=== PATIENT | male | born 1950 | race Caucasian/White ===

== ENCOUNTER → 2017-01-09 | Outpatient (CLI) | payer MEDICARE ==
[2017-01-09 10:14] LABS: CHLORIDE,CL 104 mmol/L (98-110); SODIUM,NA 138 mmol/L (136-146)
== END ==
LOC: MW.CHRC 09:34
PROVIDERS: ATTEND Family Medicine
DX: I10 Essential (primary) hypertension (principal); E78.00 Pure hypercholesterolemia, unspecified; E03.9 Hypothyroidism, unspecified; M06.9 Rheumatoid arthritis, unspecified; R73.01 Impaired fasting glucose
CPT/HCPCS: 36415; 80053; 80061; 83036; 84439; 84443; 84481; 85025; 85652; 99215

== ENCOUNTER 2019-05-09 08:46 | Day surgery (SDC) | payer MEDICARE ==
[~2019-05-09 08:46] MED LIST: Lactated Ringers 1,000 ML IV SCH; Lidocaine 2% 5 ML SDV ONE; Propofol 200 MG/20 ML SDV ONE; Sodium Chloride 0.9% 10 ML SDV IV PRN; Sodium Chloride 0.9% 10 ML Syringe FLUSH PRN; Sodium Chloride 0.9% 2.5 ML Syringe FLUSH PRN; fentaNYL 100 MCG/2 ML SDV ONE
--- NOTE | 2019-05-09 09:56 | PCM.PREANE ---
Preanesthetic Assessment - Anesthesia/Transfusion/Family Hx Anesthesia History: Prior Anesthesia Without Reaction Family History of Anesthesia Reaction: No Transfusion History: No Prior Transfusion(s) - Review of Systems General: No Symptoms Pulmonary: No Symptoms Cardiovascular: No Symptoms Gastrointestinal: No Symptoms Neurological: No Symptoms - Physical Assessment Height: 5 ft 8 in Weight: 114.759 kg ASA Class: 3 Mental Status: Alert & Oriented x3 Airway Class: Mallampati = 2 Dentition: Reports: Normal Dentition ROM/Head Extension: Full Lungs: Clear to Auscultation, Normal Respiratory Effort Cardiovascular: Regular Rate, Regular Rhythm - Allergies Allergies/Adverse Reactions: Allergies Allergy/AdvReac Type Severity Reaction Status Date / Time No Known Allergies Allergy Verified 05/06/19 12:33 - Anesthesia Plan Pre-Op Medication Ordered: None - Acknowledgements Anesthesia Type Planned: General Anesthesia Pt an Appropriate Candidate for the Planned Anesthesia: Yes Alternatives and Risks of Anesthesia Discussed w Pt/Guardian: Yes Pt/Guardian Understands and Agrees with Anesthesia Plan: Yes Additional Comments: PMH: afib (prob paroxysmal, appears to be in sinus now, unless pseudonormalization, takes asa), htn, gerd, hld, thyroid replacement, RA- multiple joints- on MTX PLAN: tiva PreAnesthesia Questionnaire HEENT History: Reports: Other (See Below) Other HEENT History: reading glasses Cardiovascular History: Reports: Afib, High Cholesterol, Hypertension Respiratory History: Reports: None Gastrointestinal History: Reports: Other (See Below) Other Gastrointestinal History: occasional heartburn Genitourinary History: Reports: Prostate Disorder Other Genitourinary History: prostate cancer Musculoskeletal History: Reports: RA Neurological History: Reports: None Psychiatric History: Reports: None Endocrine/Metabolic History: Reports: Hypothyroidism, Obesity/BMI 30+ Hematologic History: Reports: None Immunologic History: Reports: None Oncologic (Cancer) History: Reports: Prostate Dermatologic History: Reports: None - Past Surgical History Head Surgeries/Procedures: Reports: None HEENT Surgical History: Reports: None Cardiovascular Surgical History: Reports: None Respiratory Surgical History: Reports: None GI Surgical History: Reports: Colonoscopy Endocrine Surgical History: Reports: None Neurological Surgical History: Reports: None Musculoskeletal Surgical History: Reports: Other (See Below) Other Musculoskeletal Surgeries/Procedures:: flexor tendon repair Oncologic Surgical History: Reports: None Dermatological Surgical History: Reports: Other (See Below) - SUBSTANCE USE Smoking Status *Q: Former Smoker Tobacco Use Within Last Twelve Months: No Days Per Week of Alcohol Use: 6 Number of Drinks Per Day: 2 Total Drinks Per Week: 12 Recreational Drug Use History: No - HOME MEDS Home Medications: Home Meds Aspirin 325 mg PO DAILY 05/06/19 [History] Calcium Carb/Magnesium Hydrox [Antacid Chewable Tablet] 1 tab.chew CHEW ASDIRECTED PRN 05/06/19 [History] Folic Acid 1 mg PO DAILY 05/06/19 [History] Gluc HCl/Csa/Ngoc Hy/Hyalur Ac [Glucosamine Chondroitin] 2 tab PO DAILY [History] Levothyroxine Sodium [Synthroid] 200 mcg PO DAILY 05/06/19 [History] Lisinopril 10 mg PO DAILY 05/06/19 [History] Methotrexate Sodium [Methotrexate] 8 tab PO WEEKLY 05/06/19 [History] Multivit-Min/FA/Lycopen/Lutein [Centrum Silver Men Tablet] 1 tab PO DAILY [History] Rosuvastatin Calcium 20 mg PO DAILY 05/06/19 [History] dilTIAZem HCl [Diltiazem 24Hr ER (Xr)] 240 mg PO DAILY 05/06/19 [History] - CURRENT (IN HOUSE) MEDS Current Meds: Current Medications Lactated Ringer's (Ringers, Lactated) 1,000 mls @ 125 mls/hr IV ASDIRECTED RAHEEL Last Admin: 05/09/19 09:35 Dose: 125 mls/hr Sodium Chloride (Saline Flush) 10 ml FLUSH ASDIRECTED PRN PRN Reason: Keep Vein Open Sodium Chloride (Saline Flush) 2.5 ml FLUSH ASDIRECTED PRN PRN Reason: Keep Vein Open Sodium Chloride (Saline Flush) 10 ml FLUSH ASDIRECTED PRN PRN Reason: Keep Vein Open Sodium Chloride (Saline Flush) 2.5 ml FLUSH ASDIRECTED PRN PRN Reason: Keep Vein Open Sodium Chloride (Normal Saline) 10 ml IV ASDIRECTED PRN PRN Reason: IV Use Discontinued Medications Fentanyl (Sublimaze) Confirm Administered Dose 100 mcg .ROUTE .STK-MED ONE Stop: 05/09/19 07:14 Lidocaine (Xylocaine-Mpf 2%) Confirm Administered Dose 5 ml .ROUTE .STK-MED ONE Stop: 05/09/19 07:14 Propofol (Diprivan 20 Ml) Confirm Administered Dose 400 mg .ROUTE .[facility] ONE Stop: 05/09/19 07:14
[2019-05-09] MEDS ORDERED: ePHEDrine 50 MG/ML SDV ONE (10:28)
[2019-05-09] MEDS ORDERED: Propofol 200 MG/20 ML SDV ONE (10:36)
--- NOTE | 2019-05-09 12:07 | PCM.POSTAN ---
POST ANESTHESIA ASSESSMENT - MENTAL STATUS Mental Status: Alert, Oriented - VITAL SIGNS Vital Signs: Last Vital Signs Temp 97.2 F 05/09/19 10:49 Pulse 85 05/09/19 11:04 Resp 26 H 05/09/19 11:04 BP 111/65 05/09/19 11:04 Pulse Ox 96 05/09/19 11:04 - RESPIRATORY Respiratory Status: Respiratory Rate WNL, Airway Patent, O2 Saturation Stable - CARDIOVASCULAR CV Status: Pulse Rate WNL, Blood Pressure Stable - GASTROINTESTINAL GI Status: No Symptoms - POST OP HYDRATION Hydration Status: Adequate & Stable
--- NOTE | 2019-05-09 12:07 | PCM48HPAN ---
Post Anesthesia Note - EVALUATION WITHIN 48HRS OF ANESTHETIC Vital Signs in Normal Range: Yes Patient Participated in Evaluation: Yes Respiratory Function Stable: Yes Airway Patent: Yes Cardiovascular Function Stable: Yes Hydration Status Stable: Yes Pain Control Satisfactory: Yes Nausea and Vomiting Control Satisfactory: Yes Mental Status Recovered: Yes Vital Signs: Last Vital Signs Temp 97.2 F 05/09/19 10:49 Pulse 85 05/09/19 11:04 Resp 26 H 05/09/19 11:04 BP 111/65 05/09/19 11:04 Pulse Ox 96 05/09/19 11:04
--- NOTE | 2019-05-09 12:34 | PCM.OPNOTE ---
- General Post-Op/Procedure Note Date of Surgery/Procedure: 05/09/19 Operative Procedure(s): Screening colonoscopy with polypectomy Findings: 1 hepatic flexure, 4 transverse, 4 descending, 3 sigmoid colon polyps. Diverticulosis Pre Op Diagnosis: Family history of colon cancer Post-Op Diagnosis: 1 hepatic flexure, 4 transverse, 4 descending, 3 sigmoid colon polyps. Diverticulosis Anesthesia Technique: MAC Primary Surgeon: Maria Ines Chavez Condition: Good Free Text/Narrative:: Intake & Output 05/08/19 05/09/19 05/09/19 22:59 06:59 14:59 Intake Total 350 Balance 350
--- NOTE | 2019-05-09 18:49 | OR ---
SURGEON: MARIA INES CHAVEZ MD DATE OF PROCEDURE: 05/09/2019 PREOPERATIVE DIAGNOSIS: Screening colonoscopy. POSTOPERATIVE DIAGNOSES: 1. Diverticulosis. 2. Hepatic flexure polyp. 3. Transverse colon polyp. 4. Descending colon polyp. 5. Sigmoid colon polyp. PROCEDURE PERFORMED: Screening colonoscopy with polypectomy. PRIMARY SURGEON: Maria Ines Chavez MD. ANESTHESIA: MAC. INSTRUMENT USED: Olympus colonoscope. EXTENT OF EXAM: To the cecum. PREPARATION: Good. LIMITATIONS: None. INDICATION FOR EXAMINATION: The patient is a 68-year-old male who presents for a screening colonoscopy. His father was diagnosed with colon cancer. I explained the procedure, expected perioperative course, and risks including bleeding, infection, or damage to surrounding structures including perforation. The patient verbalized understanding and wishes to proceed. PROCEDURE IN DETAIL: The patient was brought into the endoscopy suite and placed in a left lateral decubitus position. A time-out was completed verifying the patient's name, age, date of , allergies, and procedure to be performed. Monitored anesthesia care was induced and continuous oxygen was provided via nasal cannula throughout the procedure. After adequate sedation was achieved, a digital rectal exam was performed. This exam was within normal limits. A well lubricated colonoscope was inserted into the rectum and advanced under direct visualization to the level of the cecum. The cecum was identified by both visual and anatomic landmarks. A photograph was taken of the cecal cap, however, I was unable to retroflex the scope within the cecum due to looping of the scope more proximally. The scope was then fully withdrawn while examining the color, texture, anatomy, and integrity of the mucosa from the cecum to the anal canal. At the hepatic flexure, the patient was found to have a larger sessile polyp. This was removed using a hot loop snare. It was sent to Pathology, labeled as hepatic flexure polyp. The patient had multiple polyps throughout the rest of the colon. There were 4 sessile polyps in the transverse colon, 4 in the descending colon, and 3 in the sigmoid colon. These were all removed in piecemeal fashion using a cold biopsy forceps and labeled as such. The scope was then brought into the rectum and retroflexed to allow visualization of the anal canal opening. This appeared normal and a photograph was taken. Scope was then straightened out and fully withdrawn. The cecum to anus time was 28 minutes. The patient tolerated the procedure well and was transferred to the PACU in stable condition. ENDOSCOPIC DIAGNOSES: 1. Diverticulosis. 2. Hepatic flexure polyp x1. 3. Transverse colon polyps x4. 4. Descending colon polyps x4. 5. Sigmoid colon polyps x3. RECOMMENDATIONS: Follow up in clinic in 2 weeks. DENISSE HOOKS /[id number]
== END 2019-05-09 11:53 | disposition home or self-care (01) ==
LOC: MW.SDS 08:46
PROVIDERS: ATTEND Surgery
DX: Z12.11 Encounter for screening for malignant neoplasm of colon (principal); D12.3 Benign neoplasm of transverse colon; D12.4 Benign neoplasm of descending colon; D12.5 Benign neoplasm of sigmoid colon; K63.5 Polyp of colon; K57.30 Diverticulosis of large intestine without perforation or abscess without bleeding; K21.9 Gastro-esophageal reflux disease without esophagitis; I10 Essential (primary) hypertension; I48.91 Unspecified atrial fibrillation; E78.00 Pure hypercholesterolemia, unspecified; E03.9 Hypothyroidism, unspecified; M19.90 Unspecified osteoarthritis, unspecified site; Z87.891 Personal history of nicotine dependence; Z80.0 Family history of malignant neoplasm of digestive organs; Z79.82 Long term (current) use of aspirin; Z79.899 Other long term (current) drug therapy
CPT/HCPCS: 45380; 45385; J2001; J2704; J3010; J7120; 88305

== ENCOUNTER 2019-05-18 00:49 | Observation (INO) | payer MEDICARE ==
--- NOTE | 2019-05-18 01:14 | EDM.PDOC ---
ED HPI GENERAL MEDICAL PROBLEM - General Chief Complaint: Gastrointestinal Problem Stated Complaint: BLOOD IN STOOL Time Seen by Provider: 05/18/19 01:03 - History of Present Illness INITIAL COMMENTS - FREE TEXT/NARRATIVE: HISTORY AND PHYSICAL: History of present illness: Patient 60-year-old male history of prostate cancer is one week status post colonoscopy in which he had 12 polyps removed he is also reporting a history diverticulosis he states he is doing fine until tonight when he had 3 episodes of blood per rectum with bowel movements. He denies chest pain charge breath or other concern he has no bleeding diathesis Review of systems: As per history of present illness and below otherwise all systems reviewed and negative. Past medical history: As per history of present illness and as reviewed below otherwise noncontributory. Surgical history: As per history of present illness and as reviewed below otherwise noncontributory. Social history: No reported history of drug or alcohol abuse. Family history: As per history of present illness and as reviewed below otherwise noncontributory. Physical exam: HEENT: Atraumatic, normocephalic, pupils reactive, negative for conjunctival pallor or scleral icterus, mucous membranes moist, throat clear, neck supple, nontender, trachea midline. Lungs: Clear to auscultation, breath sounds equal bilaterally, chest nontender. Heart: S1S2, regular, negative for clicks, rubs, or JVD. Abdomen: Soft, nondistended, nontender. Negative for masses or hepatosplenomegaly. Negative for costovertebral tenderness. Pelvis: Stable nontender. Genitourinary: Deferred. Rectal: Deferred. Extremities: Atraumatic, negative for cords or calf pain. Neurovascular unremarkable. Neuro: Awake, alert, oriented. Cranial nerves II through XII unremarkable. Cerebellum unremarkable. Motor and sensory unremarkable throughout. Exam nonfocal. Diagnostics: CBC CMP PT/INR CT abdomen and pelvis Therapeutics: 125 mL an hour Impression: #1 rectal bleeding #21 week status post polypectomy #3 history diverticulosis # 4 history of prostate cancer Definitive disposition and diagnosis as appropriate pending reevaluation and review of above. - Related Data Allergies Allergy/AdvReac Type Severity Reaction Status Date / Time No Known Allergies Allergy Verified 05/18/19 00:58 Home Meds: Home Meds Aspirin 325 mg PO DAILY 05/06/19 [History] Folic Acid 1 mg PO DAILY 05/06/19 [History] Gluc HCl/Csa/Ngoc Hy/Hyalur Ac [Glucosamine Chondroitin] 2 tab PO DAILY [History] Levothyroxine Sodium [Synthroid] 200 mcg PO DAILY 05/06/19 [History] Lisinopril 10 mg PO DAILY 05/06/19 [History] Methotrexate Sodium [Methotrexate] 8 tab PO WEEKLY 05/06/19 [History] Multivit-Min/FA/Lycopen/Lutein [Centrum Silver Men Tablet] 1 tab PO DAILY [History] Rosuvastatin Calcium 20 mg PO BEDTIME 05/06/19 [History] dilTIAZem HCl [Diltiazem 24Hr ER (Xr)] 240 mg PO DAILY 05/06/19 [History] Past Medical History HEENT History: Reports: Other (See Below) Other HEENT History: reading glasses Cardiovascular History: Reports: Afib, High Cholesterol, Hypertension Respiratory History: Reports: None Gastrointestinal History: Reports: Other (See Below) Other Gastrointestinal History: occasional heartburn Genitourinary History: Reports: Prostate Disorder Other Genitourinary History: prostate cancer Musculoskeletal History: Reports: RA Neurological History: Reports: None Psychiatric History: Reports: None Endocrine/Metabolic History: Reports: Hypothyroidism Hematologic History: Reports: None Immunologic History: Reports: None Oncologic (Cancer) History: Reports: Prostate Dermatologic History: Reports: None - Past Surgical History Head Surgeries/Procedures: Reports: None HEENT Surgical History: Reports: None Cardiovascular Surgical History: Reports: None Respiratory Surgical History: Reports: None GI Surgical History: Reports: Colonoscopy Endocrine Surgical History: Reports: None Neurological Surgical History: Reports: None Musculoskeletal Surgical History: Reports: Other (See Below) Other Musculoskeletal Surgeries/Procedures:: flexor tendon repair Oncologic Surgical History: Reports: None Dermatological Surgical History: Reports: Other (See Below) Social & Family History - Family History Family Medical History: Noncontributory - Tobacco Use Smoking Status *Q: Current Every Day Smoker Years of Tobacco use: 50 Packs/Tins Daily: 1 - Recreational Drug Use Recreational Drug Use: No ED ROS GENERAL - Review of Systems Review Of Systems: ROS reveals no pertinent complaints other than HPI. ED EXAM, GENERAL - Physical Exam Exam: See Below (See dictation) Course - Vital Signs Last Recorded V/S: Last Vital Signs Temp 35.5 C 09/28/19 00:49 Pulse 97 05/18/19 00:49 Resp 18 05/18/19 00:49 BP 162/87 H 05/18/19 00:49 Pulse Ox 95 05/18/19 00:49 - Orders/Labs/Meds Orders: Active Orders 24 hr Category Date Time Status Admission Status [Patient Status] [ADT] Stat ADT 05/18/19 02:25 Active Sodium Chloride 0.9% [Normal Saline] 1,000 ml Med 05/18/19 01:15 Active IV STAT Medication Orders Sodium Chloride (Normal Saline) 1,000 mls @ 125 mls/hr IV STAT RAHEEL Last Admin: 05/18/19 01:56 Dose: 125 mls/hr Labs: Laboratory Tests 05/18/19 05/18/19 05/18/19 Range/Units 01:45 01:45 01:45 WBC 7.85 (4.0-11.0) K/uL RBC 3.64 L (4.50-5.90) M/uL Hgb 11.8 L (13.0-17.0) g/dL Hct 35.6 L (38.0-50.0) % MCV 97.8 (80.0-98.0) fL MCH 32.4 H (27.0-32.0) pg MCHC 33.1 (31.0-37.0) g/dL RDW Std Deviation 50.4 (28.0-62.0) fl RDW Coeff of Bob 14 (11.0-15.0) % Plt Count 261 (150-400) K/uL MPV 9.40 (7.40-12.00) fL Neut % (Auto) 63.3 (48.0-80.0) % Lymph % (Auto) 17.2 (16.0-40.0) % [place] % (Auto) 14.9 (0.0-15.0) % Eos % (Auto) 4.3 (0.0-7.0) % Baso % (Auto) 0.3 (0.0-1.5) % Neut # (Auto) 5.0 (1.4-5.7) K/uL Lymph # (Auto) 1.4 (0.6-2.4) K/uL [place] # (Auto) 1.2 H (0.0-0.8) K/uL Eos # (Auto) 0.3 (0.0-0.7) K/uL Baso # (Auto) 0.0 (0.0-0.1) K/uL Nucleated RBC % 0.0 /100WBC Nucleated RBCs # 0 K/uL INR 0.95 Sodium (136-148) mmol/L Potassium (3.5-5.1) mmol/L Chloride (98-107) mmol/L Carbon Dioxide (21.0-32.0) mmol/L BUN (7.0-18.0) mg/dL Creatinine (0.8-1.3) mg/dL Est Cr Clr Drug Dosing Estimated GFR (MDRD) ml/min Glucose (74-106) mg/dL Calcium (8.5-10.1) mg/dL Total Bilirubin (0.2-1.0) mg/dL AST (15-37) IU/L ALT (14-63) IU/L Alkaline Phosphatase (46-116) U/L Total Protein (6.4-8.2) g/dL Albumin (3.4-5.0) g/dL Globulin (2.6-4.0) g/dL Albumin/Globulin Ratio (0.9-1.6) Urine Color YELLOW Urine Appearance CLEAR Urine pH 5.5 (5.0-8.0) Ur Specific Otis >= 1.030 (1.001-1.035) Urine Protein NEGATIVE (NEGATIVE) mg/dL Urine Glucose (UA) NEGATIVE (NEGATIVE) mg/dL Urine Ketones NEGATIVE (NEGATIVE) mg/dL Urine Occult Blood NEGATIVE (NEGATIVE) Urine Nitrite NEGATIVE (NEGATIVE) Urine Bilirubin NEGATIVE (NEGATIVE) Urine Urobilinogen 0.2 (<2.0) EU/dL Ur Leukocyte Esterase NEGATIVE (NEGATIVE) 05/18/19 Range/Units 01:45 WBC (4.0-11.0) K/uL RBC (4.50-5.90) M/uL Hgb (13.0-17.0) g/dL Hct (38.0-50.0) % MCV (80.0-98.0) fL MCH (27.0-32.0) pg MCHC (31.0-37.0) g/dL RDW Std Deviation (28.0-62.0) fl RDW Coeff of Bob (11.0-15.0) % Plt Count (150-400) K/uL MPV (7.40-12.00) fL Neut % (Auto) (48.0-80.0) % Lymph % (Auto) (16.0-40.0) % [place] % (Auto) (0.0-15.0) % Eos % (Auto) (0.0-7.0) % Baso % (Auto) (0.0-1.5) % Neut # (Auto) (1.4-5.7) K/uL Lymph # (Auto) (0.6-2.4) K/uL [place] # (Auto) (0.0-0.8) K/uL Eos # (Auto) (0.0-0.7) K/uL Baso # (Auto) (0.0-0.1) K/uL Nucleated RBC % /100WBC Nucleated RBCs # K/uL INR Sodium 144 (136-148) mmol/L Potassium 3.8 (3.5-5.1) mmol/L Chloride 107 (98-107) mmol/L Carbon Dioxide 24.5 (21.0-32.0) mmol/L BUN 23 H (7.0-18.0) mg/dL Creatinine 1.0 (0.8-1.3) mg/dL Est Cr Clr Drug Dosing TNP Estimated GFR (MDRD) > 60.0 ml/min Glucose 176 H (74-106) mg/dL Calcium 7.9 L (8.5-10.1) mg/dL Total Bilirubin 0.3 (0.2-1.0) mg/dL AST 19 (15-37) IU/L ALT 24 (14-63) IU/L Alkaline Phosphatase 73 (46-116) U/L Total Protein 5.9 L (6.4-8.2) g/dL Albumin 2.8 L (3.4-5.0) g/dL Globulin 3.1 (2.6-4.0) g/dL Albumin/Globulin Ratio 0.9 (0.9-1.6) Urine Color Urine Appearance Urine pH (5.0-8.0) Ur Specific [place] (1.001-1.035) Urine Protein (NEGATIVE) mg/dL Urine Glucose (UA) (NEGATIVE) mg/dL Urine Ketones (NEGATIVE) mg/dL Urine Occult Blood (NEGATIVE) Urine Nitrite (NEGATIVE) Urine Bilirubin (NEGATIVE) Urine Urobilinogen (<2.0) EU/dL Ur Leukocyte Esterase (NEGATIVE) Meds: Medications Generic Name Dose Route Start Last Admin Trade Name Freq PRN Reason Stop Dose Admin Sodium Chloride 1,000 mls @ 125 mls/hr 05/18/19 01:15 05/18/19 01:56 Normal Saline IV 125 mls/hr STAT RAHEEL Administration Departure - Departure Time of Disposition: : Disposition: Refer to Observation Condition: Good Clinical Impression: Rectal bleeding, History of prostate cancer - Discharge Information Referrals: Xiang Campos MD [Primary Care Provider] - Forms: ED Department Discharge - My Orders Last 24 Hours: My Active Orders 05/18/19 01:15 Sodium Chloride 0.9% [Normal Saline] 1,000 ml IV STAT 05/18/19 02:25 Admission Status [Patient Status] [ADT] Stat - Assessment/Plan Last 24 Hours: My Active Orders 05/18/19 01:15 Sodium Chloride 0.9% [Normal Saline] 1,000 ml IV STAT 05/18/19 02:25 Admission Status [Patient Status] [ADT] Stat
[2019-05-18] MEDS ORDERED: Sodium Chloride 0.9% 1,000 ML IV SCH (01:15)
--- NOTE | 2019-05-18 01:50 | CT ---
INDICATION: Blood in stool. Colonoscopy 1 week prior. TECHNIQUE: CT abdomen and pelvis without contrast. COMPARISON: None. FINDINGS: Lower chest: Unremarkable. Liver: Normal in size and attenuation. No masses. Gallbladder and bile ducts: No stones or inflammation. No biliary dilatation. Pancreas: Unremarkable. No mass or inflammation. Spleen: Normal in size. No masses. Adrenal glands: Left adrenal adenoma measuring 2.0 centimeters. Kidneys: No hydronephrosis with a 1 millimeter nonobstructing stone right kidney. Left renal cyst at the upper pole measuring 14 millimeters. GI tract: The stomach is unremarkable. No dilated loops of large or small intestine. Appendix is seen and is unremarkable. Moderate colonic diverticulosis without focal inflammation. Vasculature: Atherosclerosis without abdominal aortic aneurysm. Pelvis: Unremarkable. No pelvic masses. Bones: Unilateral spondylolysis on the left at L5. IMPRESSION: 1. Nephrolithiasis without evidence of hydronephrosis. 2. Colonic diverticulosis. 3. Left adrenal adenoma. Please note that all CT scans at this facility use dose modulation, iterative reconstruction, and/or weight-based dosing when appropriate to reduce radiation dose to as low as reasonably achievable. Dictated by Stanton Lujan MD @ May 18 2019 1:43AM Signed by Dr. Stanton Lujan @ May 18 2019 1:48AM
[2019-05-18 02:25] LABS: BLOOD UREA NITROGEN,BUN 23 mg/dL (7.0-18.0); CARBON DIOXIDE,CO2 24.5 mmol/L (21.0-32.0); CHLORIDE,CL 107 mmol/L (98-107); GLUCOSE RANDOM 176 mg/dL (74-106); POTASSIUM,K 3.8 mmol/L (3.5-5.1); SODIUM,NA 144 mmol/L (136-148)
[2019-05-18] MEDS: Sodium Chloride 0.9% 1,000 ML IV SCH ×2 (03:59→13:06)
--- NOTE | 2019-05-18 08:14 | PCM.HP.2 ---
H&P History of Present Illness - General Date of Service: 05/18/19 Admit Problem/Dx: Admission Diagnosis/Problem Admission Diagnosis/Problem bright red bleeding per rectum, recent polypectomy, prostate cancer pending chemotherapy Source of Information: Patient History Limitations: Reports: No Limitations - History of Present Illness Initial Comments - Free Text/Narative: The patient is a 60-year-old gentleman who presented to the emergency department yesterday evening with a complaint of bright red bleeding per rectum. The patient has a history of prostate cancer and is scheduled to undergo chemotherapy next week. 2 days ago the patient underwent colonoscopy with approximately 12 polyps being removed. The patient did have bloody bowel movement this morning. He has denied any pain. He should also denies any dizziness or lightheadedness. He has had no nausea or vomiting. The patient has been in his usual state of health up until the history of present illness. Onset of Symptoms: Reports: Gradual Duration of Symptoms: Reports: Day(s): Location: Reports: Abdomen Severity: Mild Improves with: Reports: None Worsens with: Reports: None Associated Symptoms: Reports: No Other Symptoms - Related Data Allergies/Adverse Reactions: Allergies Allergy/AdvReac Type Severity Reaction Status Date / Time No Known Allergies Allergy Verified 05/18/19 03:19 Home Medications: Home Meds Aspirin 325 mg PO DAILY 05/06/19 [History] Folic Acid 1 mg PO DAILY 05/06/19 [History] Gluc HCl/Csa/Ngoc Hy/Hyalur Ac [Glucosamine Chondroitin] 2 tab PO DAILY [History] Levothyroxine Sodium [Synthroid] 200 mcg PO DAILY 05/06/19 [History] Lisinopril 10 mg PO DAILY 05/06/19 [History] Methotrexate Sodium [Methotrexate] 8 tab PO WEEKLY 05/06/19 [History] Multivit-Min/FA/Lycopen/Lutein [Centrum Silver Men Tablet] 1 tab PO DAILY [History] Rosuvastatin Calcium 20 mg PO BEDTIME 05/06/19 [History] dilTIAZem HCl [Diltiazem 24Hr ER (Xr)] 240 mg PO DAILY 05/06/19 [History] Past Medical History HEENT History: Reports: Impaired Vision, Other (See Below) Other HEENT History: reading glasses Cardiovascular History: Reports: Afib, High Cholesterol, Hypertension Respiratory History: Reports: None Gastrointestinal History: Reports: Colon Polyp, Other (See Below) Other Gastrointestinal History: occasional heartburn Genitourinary History: Reports: Prostate Disorder Other Genitourinary History: prostate cancer Musculoskeletal History: Reports: RA Neurological History: Reports: None Psychiatric History: Reports: None Endocrine/Metabolic History: Reports: Hypothyroidism Hematologic History: Reports: None Immunologic History: Reports: None Oncologic (Cancer) History: Reports: Prostate Dermatologic History: Reports: None - Infectious Disease History Infectious Disease History: Reports: Chicken Pox, Measles - Past Surgical History Head Surgeries/Procedures: Reports: None HEENT Surgical History: Reports: None Cardiovascular Surgical History: Reports: None Respiratory Surgical History: Reports: None GI Surgical History: Reports: Colonoscopy, Polypectomy Endocrine Surgical History: Reports: None Neurological Surgical History: Reports: None Musculoskeletal Surgical History: Reports: Other (See Below) Other Musculoskeletal Surgeries/Procedures:: flexor tendon repair Oncologic Surgical History: Reports: None Dermatological Surgical History: Reports: Other (See Below) Social & Family History - Family History Family Medical History: Noncontributory Oncologic: Reports: Colon, Lung, Prostate - Tobacco Use Smoking Status *Q: Former Smoker Years of Tobacco use: 50 Packs/Tins Daily: 1 Used Tobacco, but Quit: No Month/Year Tobacco Last Used: 2012 - Caffeine Use Caffeine Use: Reports: Coffee - Alcohol Use Days Per Week of Alcohol Use: 7 Number of Drinks Per Day: 2 Total Drinks Per Week: 14 - Recreational Drug Use Recreational Drug Use: No - Living Situation & Occupation Living situation: Reports: , with Spouse Occupation: Retired H&P Review of Systems - Review of Systems: Review Of Systems: See Below General: Reports: No Symptoms HEENT: Reports: No Symptoms Pulmonary: Reports: No Symptoms Cardiovascular: Reports: No Symptoms Gastrointestinal: Reports: Difficulty Swallowing, Hematochezia. Denies: Abdominal Pain, Black Stool, Nausea Genitourinary: Reports: Other (Active prostate cancer) Musculoskeletal: Reports: No Symptoms Skin: Reports: No Symptoms Psychiatric: Reports: No Symptoms Neurological: Reports: No Symptoms Hematologic/Lymphatic: Reports: No Symptoms Immunologic: Reports: No Symptoms Exam - Exam Exam: See Below - Vital Signs Vital Signs: Last Vital Signs Temp 36.5 C 05/18/19 07:00 Pulse 87 05/18/19 07:00 Resp 16 05/18/19 07:00 BP 147/83 H 05/18/19 07:00 Pulse Ox 92 L 05/18/19 07:00 Weight: 114.577 kg - Exam Quality Assessment: No: Supplemental Oxygen General: Alert, Oriented, Cooperative HEENT: Conjunctiva Clear, EACs Clear, EOMI, Mucosa Moist & [place], Nares Patent, Pupils Equal, PERRLA Neck: Supple, Trachea Midline Lungs: Clear to Auscultation, Normal Respiratory Effort Cardiovascular: Regular Rate, Regular Rhythm GI/Abdominal Exam: Normal Bowel Sounds, Soft, Non-Tender, No Distention Back Exam: Normal Inspection, Full Range of Motion Extremities: Normal Inspection, Normal Range of Motion, No Pedal Edema Skin: Warm, Dry, Intact, Other (Seborrheic keratosis) Neurological: Cranial Nerves Intact Neuro Extensive - Mental Status: Alert, Oriented x3 Psychiatric: Alert, Normal Affect, Normal Mood - Patient Data Lab Results Last 24 hrs: Laboratory Results - last 24 hr 05/18/19 05/18/19 05/18/19 Range/Units 01:45 01:45 01:45 WBC 7.85 (4.0-11.0) K/uL RBC 3.64 L (4.50-5.90) M/uL Hgb 11.8 L (13.0-17.0) g/dL Hct 35.6 L (38.0-50.0) % MCV 97.8 (80.0-98.0) fL MCH 32.4 H (27.0-32.0) pg MCHC 33.1 (31.0-37.0) g/dL RDW Std Deviation 50.4 (28.0-62.0) fl RDW Coeff of Bob 14 (11.0-15.0) % Plt Count 261 (150-400) K/uL MPV 9.40 (7.40-12.00) fL Neut % (Auto) 63.3 (48.0-80.0) % Lymph % (Auto) 17.2 (16.0-40.0) % Garvin % (Auto) 14.9 (0.0-15.0) % Eos % (Auto) 4.3 (0.0-7.0) % Baso % (Auto) 0.3 (0.0-1.5) % Neut # (Auto) 5.0 (1.4-5.7) K/uL Lymph # (Auto) 1.4 (0.6-2.4) K/uL Garvin # (Auto) 1.2 H (0.0-0.8) K/uL Eos # (Auto) 0.3 (0.0-0.7) K/uL Baso # (Auto) 0.0 (0.0-0.1) K/uL Add Manual Diff Neutrophils % (Manual) (48.0-80.0) % Band Neutrophils % % Lymphocytes % (Manual) (16.0-40.0) % Monocytes % (Manual) (0.0-15.0) % Eosinophils % (Manual) (0.0-7.0) % Nucleated RBC % 0.0 /100WBC Absolute Seg Neuts (1.4-5.7) Band Neutrophils # Lymphocytes # (Manual) (0.6-2.4) Monocytes # (Manual) (0.0-0.8) Eosinophils # (Manual) (0.0-0.7) Nucleated RBCs # 0 K/uL INR 0.95 Sodium (136-148) mmol/L Potassium (3.5-5.1) mmol/L Chloride (98-107) mmol/L Carbon Dioxide (21.0-32.0) mmol/L BUN (7.0-18.0) mg/dL Creatinine (0.8-1.3) mg/dL Est Cr Clr Drug Dosing Estimated GFR (MDRD) ml/min Glucose (74-106) mg/dL Calcium (8.5-10.1) mg/dL Total Bilirubin (0.2-1.0) mg/dL AST (15-37) IU/L ALT (14-63) IU/L Alkaline Phosphatase (46-116) U/L Total Protein (6.4-8.2) g/dL Albumin (3.4-5.0) g/dL Globulin (2.6-4.0) g/dL Albumin/Globulin Ratio (0.9-1.6) Urine Color YELLOW Urine Appearance CLEAR Urine pH 5.5 (5.0-8.0) Ur Specific [place] >= 1.030 (1.001-1.035) Urine Protein NEGATIVE (NEGATIVE) mg/dL Urine Glucose (UA) NEGATIVE (NEGATIVE) mg/dL Urine Ketones NEGATIVE (NEGATIVE) mg/dL Urine Occult Blood NEGATIVE (NEGATIVE) Urine Nitrite NEGATIVE (NEGATIVE) Urine Bilirubin NEGATIVE (NEGATIVE) Urine Urobilinogen 0.2 (<2.0) EU/dL Ur Leukocyte Esterase NEGATIVE (NEGATIVE) 05/18/19 05/18/19 Range/Units 01:45 06:05 WBC 8.13 (4.0-11.0) K/uL RBC 3.23 L (4.50-5.90) M/uL Hgb 10.4 L (13.0-17.0) g/dL Hct 31.6 L (38.0-50.0) % MCV 97.8 (80.0-98.0) fL MCH 32.2 H (27.0-32.0) pg MCHC 32.9 (31.0-37.0) g/dL RDW Std Deviation 51.1 (28.0-62.0) fl RDW Coeff of Bob 14 (11.0-15.0) % Plt Count 247 (150-400) K/uL MPV 9.50 (7.40-12.00) fL Neut % (Auto) (48.0-80.0) % Lymph % (Auto) (16.0-40.0) % Garvin % (Auto) (0.0-15.0) % Eos % (Auto) (0.0-7.0) % Baso % (Auto) (0.0-1.5) % Neut # (Auto) (1.4-5.7) K/uL Lymph # (Auto) (0.6-2.4) K/uL Garvin # (Auto) (0.0-0.8) K/uL Eos # (Auto) (0.0-0.7) K/uL Baso # (Auto) (0.0-0.1) K/uL Add Manual Diff YES Neutrophils % (Manual) 66 (48.0-80.0) % Band Neutrophils % 6 % Lymphocytes % (Manual) 16 (16.0-40.0) % Monocytes % (Manual) 8 (0.0-15.0) % Eosinophils % (Manual) 4 (0.0-7.0) % Nucleated RBC % 0.0 /100WBC Absolute Seg Neuts 5.4 (1.4-5.7) Band Neutrophils # 0.5 Lymphocytes # (Manual) 1.3 (0.6-2.4) Monocytes # (Manual) 0.7 (0.0-0.8) Eosinophils # (Manual) 0.3 (0.0-0.7) Nucleated RBCs # 0 K/uL INR Sodium 144 (136-148) mmol/L Potassium 3.8 (3.5-5.1) mmol/L Chloride 107 (98-107) mmol/L Carbon Dioxide 24.5 (21.0-32.0) mmol/L BUN 23 H (7.0-18.0) mg/dL Creatinine 1.0 (0.8-1.3) mg/dL Est Cr Clr Drug Dosing TNP Estimated GFR (MDRD) > 60.0 ml/min Glucose 176 H (74-106) mg/dL Calcium 7.9 L (8.5-10.1) mg/dL Total Bilirubin 0.3 (0.2-1.0) mg/dL AST 19 (15-37) IU/L ALT 24 (14-63) IU/L Alkaline Phosphatase 73 (46-116) U/L Total Protein 5.9 L (6.4-8.2) g/dL Albumin 2.8 L (3.4-5.0) g/dL Globulin 3.1 (2.6-4.0) g/dL Albumin/Globulin Ratio 0.9 (0.9-1.6) Urine Color Urine Appearance Urine pH (5.0-8.0) Ur Specific [place] (1.001-1.035) Urine Protein (NEGATIVE) mg/dL Urine Glucose (UA) (NEGATIVE) mg/dL Urine Ketones (NEGATIVE) mg/dL Urine Occult Blood (NEGATIVE) Urine Nitrite (NEGATIVE) Urine Bilirubin (NEGATIVE) Urine Urobilinogen (<2.0) EU/dL Ur Leukocyte Esterase (NEGATIVE) Result Diagrams: 05/18/19 06:05 05/18/19 01:45 - Problem List (1) Rectal bleeding SNOMED Code(s): 33890409 ICD Code: K62.5 - HEMORRHAGE OF ANUS AND RECTUM Status: Acute Priority: High Current Visit: Yes Problem Details: Low-volume bleed (2) History of prostate cancer SNOMED Code(s): 233124563 ICD Code: Z85.46 - PERSONAL HISTORY OF MALIGNANT NEOPLASM OF PROSTATE Status: Chronic Priority: Medium Current Visit: Yes (3) Polyp, sigmoid colon SNOMED Code(s): 860139344 ICD Code: D12.5 - BENIGN NEOPLASM OF SIGMOID COLON Status: Chronic Priority: Medium Current Visit: Yes Qualifiers: Colon polyp type: unspecified Qualified Code(s): D12.5 - Benign neoplasm of sigmoid colon (4) Hypertension SNOMED Code(s): 19562896 ICD Code: I10 - ESSENTIAL (PRIMARY) HYPERTENSION Status: Chronic Priority : High Current Visit: Yes Qualifiers: Hypertension type: essential hypertension Qualified Code(s): I10 - Essential (primary) hypertension Problem List Initiated/Reviewed/Updated: Yes Orders Last 24hrs: Active Orders 24 hr Category Date Time Status Admission Status [Patient Status] [ADT] Stat ADT 05/18/19 02:25 Active Patient Status [ADT] Stat ADT 05/18/19 02:29 Active Clear Liquid Diet [DIET] Diet 05/18/19 Breakfast Active Sodium Chloride 0.9% [Normal Saline] 1,000 ml Med 05/18/19 03:45 Active IV ASDIRECTED Sodium Chloride 0.9% [Normal Saline] 1,000 ml Med 05/18/19 01:15 Active IV STAT Medication Orders Sodium Chloride (Normal Saline) 1,000 mls @ 125 mls/hr IV STAT [facility] Last Admin: 05/18/19 01:56 Dose: 125 mls/hr Sodium Chloride (Normal Saline) 1,000 mls @ 75 mls/hr IV ASDIRECTED [facility] Last Admin: 05/18/19 03:59 Dose: 75 mls/hr Assessment/Plan Comment:: The patient is a 68-year-old gentleman who had presented to the emergency department primarily out of concern for bright red bleeding per rectum. The patient had undergone recent polypectomy and this is likely the source. He has demonstrated essentially stable hemoglobin. A repeat hemoglobin has been ordered for later today. This is also likely low-volume bleeding. If the patient 's hemoglobin has been stable he will be appropriate for discharge later today. I have advised the patient of this. He also has active prostate cancer and is currently pending chemotherapy. The patient will be continued on his antihypertensive medications for now. He will also be on telemetry. The patient will have his vital signs checked every 4 hours. His medications will be adjusted as necessary. The patient's diet has been advanced from clear liquids to full diet as tolerated. He will not have DVT prophylaxis secondary to active hemorrhage with pharmacological agents. SCDs were ordered. - Mortality Measure Prognosis:: Good
[2019-05-18] MEDS ORDERED: oxyCODONE 5 MG Tab PO PRN (08:15)
[2019-05-18] MEDS ORDERED: Acetaminophen 325 MG Tab PO PRN (08:15)
[2019-05-18] MEDS ORDERED: Ondansetron 4 MG Tab.DIS PO PRN (08:15)
[2019-05-18] MEDS ORDERED: Folic Acid 1 MG Tab PO SCH (09:00)
[2019-05-18] MEDS ORDERED: Lisinopril 10 MG Tab PO SCH (09:00)
[2019-05-18] MEDS ORDERED: Levothyroxine 100 MCG Tab PO SCH (09:00)
[2019-05-18] MEDS ORDERED: Diltiazem 120 MG Cap.CD PO SCH (09:00)
[2019-05-18] MEDS ORDERED: Rosuvastatin 10 MG Tab PO SCH (21:00)
--- NOTE | 2019-05-19 13:14 | PCM.DCSUM1 ---
Discharge Summary - Hospital Course Diagnosis: Stroke: No - Discharge Data Discharge Date: 05/18/19 Discharge Disposition: Home, Self-Care 01 Condition: Good - Referral to Home Health Primary Care Physician: Xiang Campos MD - Discharge Diagnosis/Problem(s) (1) Rectal bleeding SNOMED Code(s): 18185710 ICD Code: K62.5 - HEMORRHAGE OF ANUS AND RECTUM Status: Acute Priority: High Problem Details: Low-volume bleed (2) History of prostate cancer SNOMED Code(s): 431460300 ICD Code: Z85.46 - PERSONAL HISTORY OF MALIGNANT NEOPLASM OF PROSTATE Status: Chronic Priority: Medium (3) Polyp, sigmoid colon SNOMED Code(s): 789962810 ICD Code: D12.5 - BENIGN NEOPLASM OF SIGMOID COLON Status: Chronic Priority: Medium Qualifiers: Colon polyp type: unspecified Qualified Code(s): D12.5 - Benign neoplasm of sigmoid colon (4) Hypertension SNOMED Code(s): 42479274 ICD Code: I10 - ESSENTIAL (PRIMARY) HYPERTENSION Status: Chronic Priority : High Qualifiers: Hypertension type: essential hypertension Qualified Code(s): I10 - Essential (primary) hypertension - Patient Summary/Data Hospital Course: The patient is a 60-year-old gentleman who presented to the emergency department yesterday evening with a complaint of bright red bleeding per rectum. The patient has a history of prostate cancer and is scheduled to undergo chemotherapy next week. 2 days ago the patient underwent colonoscopy with approximately 12 polyps being removed. The patient did have bloody bowel movement this morning. He has demonstrated essentially stable hemoglobin. A repeat hemoglobin has been ordered for later today. This is also likely low- volume bleeding. If the patient's hemoglobin has been stable he will be appropriate for discharge later today. I have advised the patient of this. He also has active prostate cancer and is currently pending chemotherapy. The patient will be continued on his antihypertensive medications for now. He will also be on telemetry. The patient will have his vital signs checked every 4 hours. His medications will be adjusted as necessary. The patient's diet has been advanced from clear liquids to full diet as tolerated. He will not have DVT prophylaxis secondary to active hemorrhage with pharmacological agents. The patient also had been ambulating well. He is denied any symptoms. The patient will be recommended continue with his diet as tolerated. He is also to have activity as tolerated. The patient is scheduled to follow-up with his oncologist with regards to chemotherapy for his prostate cancer. He has been hemodynamically stable and the patient will be discharged from acute hospitalization with the recommendations listed above. - Patient Instructions Diet: Heart Healthy Diet Activity: As Tolerated Notify Provider of: Fever, Increased Pain, Swelling and Redness - Discharge Plan *PRESCRIPTION DRUG MONITORING PROGRAM REVIEWED*: No *COPY OF PRESCRIPTION DRUG MONITORING REPORT IN PATIENT ARDHA: No Home Medications: Home Meds Folic Acid 1 mg PO DAILY 05/06/19 [History] Gluc HCl/Csa/Ngoc Hy/Hyalur Ac [Glucosamine Chondroitin] 2 tab PO DAILY [History] Levothyroxine Sodium [Synthroid] 200 mcg PO DAILY 05/06/19 [History] Lisinopril 10 mg PO DAILY 05/06/19 [History] Methotrexate Sodium [Methotrexate] 8 tab PO WEEKLY 05/06/19 [History] Multivit-Min/FA/Lycopen/Lutein [Centrum Silver Men Tablet] 1 tab PO DAILY [History] Rosuvastatin Calcium 20 mg PO BEDTIME 05/06/19 [History] dilTIAZem HCl [Diltiazem 24Hr ER (Xr)] 240 mg PO DAILY 05/06/19 [History] Oxygen Therapy Mode: Room Air Patient Handouts: Colon Polyps, Colonoscopy, Adult, Care After, [id number], Prostate Cancer, [id number], Rectal Bleeding, [id number] Forms: ED Department Discharge Referrals: Maria Ines Chavez MD [Physician] - Xiang Campos MD [Primary Care Provider] - - Discharge Summary/Plan Comment DC Time >30 min.: Yes - General Info Date of Service: 05/18/19 Admission Dx/Problem (Free Text: Admission Diagnosis/Problem Admission Diagnosis/Problem bright red bleeding per rectum, recent polypectomy, prostate cancer pending chemotherapy Functional Status: Reports: Pain Controlled - Review of Systems General: Reports: No Symptoms HEENT: Reports: No Symptoms Pulmonary: Reports: No Symptoms Cardiovascular: Reports: No Symptoms Gastrointestinal: Reports: No Symptoms Genitourinary: Reports: No Symptoms Musculoskeletal: Reports: No Symptoms Skin: Reports: No Symptoms Neurological: Reports: No Symptoms Psychiatric: Reports: No Symptoms - Patient Data Vitals - Most Recent: Last Vital Signs Temp 36.6 C 05/18/19 12:15 Pulse 97 05/18/19 12:15 Resp 18 05/18/19 12:15 BP 124/70 05/18/19 12:15 Pulse Ox 96 05/18/19 12:15 Weight - Most Recent: 114.577 kg I&O - Last 24 hours: Intake & Output 05/18/19 05/19/19 05/19/19 22:59 06:59 14:59 Intake Total 1651 Output Total 1600 Balance 51 Lab Results - Last 24 hrs: Laboratory Results - last 24 hr 05/18/19 Range/Units 13:58 Hgb 10.7 L (13.0-17.0) g/dL Hct 32.4 L (38.0-50.0) % Med Orders - Current: Current Medications Discontinued Medications Acetaminophen (Tylenol) 650 mg PO Q4H PRN PRN Reason: Pain (Mild 1-3)/fever Diltiazem HCl (Cardizem Cd) 240 mg PO DAILY [facility] Last Admin: 05/18/19 08:56 Dose: 240 mg Folic Acid (Folic Acid) 1 mg PO DAILY [facility] Last Admin: 05/18/19 08:56 Dose: 1 mg Sodium Chloride (Normal Saline) 1,000 mls @ 125 mls/hr IV STAT [facility] Last Admin: 05/18/19 01:56 Dose: 125 mls/hr Sodium Chloride (Normal Saline) 1,000 mls @ 75 mls/hr IV ASDIRECTED [facility] Last Admin: 05/18/19 13:06 Dose: 75 mls/hr Levothyroxine Sodium (Synthroid) 200 mcg PO ACBREAKFAST [facility] Last Admin: 05/18/19 08:55 Dose: 200 mcg Lisinopril (Prinivil) 10 mg PO DAILY [facility] Last Admin: 05/18/19 08:55 Dose: 10 mg Ondansetron HCl (Zofran Odt) 4 mg PO Q4H PRN PRN Reason: nausea, able to take PO Oxycodone HCl (Oxycodone) 5 mg PO Q4H PRN PRN Reason: Pain (moderate 4-6) Rosuvastatin Calcium (Crestor) 20 mg PO BEDTIME [facility] - Exam Quality Assessment: Denies: Supplemental Oxygen General: Reports: Alert, Oriented, Cooperative, No Acute Distress HEENT: Reports: Pupils Equal, Pupils Reactive, EOMI Neck: Reports: Supple, Trachea Midline Lungs: Reports: Clear to Auscultation, Normal Respiratory Effort Cardiovascular: Reports: Regular Rate, Regular Rhythm GI/Abdominal Exam: Normal Bowel Sounds, No Distention Back Exam: Reports: Normal Inspection, Full Range of Motion Extremities: Normal Inspection, No Pedal Edema Skin: Reports: Warm, Dry, Intact Neurological: Reports: No New Focal Deficit Psy/Mental Status: Reports: Alert, Normal Affect, Normal Mood *Q Meaningful Use (DIS) - VTE *Q VTE Pharmacological Contraindications *Q: Active Hemorrhage
== END 2019-05-18 15:15 | disposition home or self-care (01) ==
LOC: MW.ED 00:49 → MW.MS 02:25
PROVIDERS: ADMIT Internal Medicine; ATTEND Internal Medicine
DX: K62.5 Hemorrhage of anus and rectum (principal); C61 Malignant neoplasm of prostate; D12.5 Benign neoplasm of sigmoid colon; I10 Essential (primary) hypertension; E78.00 Pure hypercholesterolemia, unspecified; M06.9 Rheumatoid arthritis, unspecified; E03.9 Hypothyroidism, unspecified; Z79.899 Other long term (current) drug therapy; Z79.82 Long term (current) use of aspirin; Z87.891 Personal history of nicotine dependence
CPT/HCPCS: 36415; 74176; 80053; 81003; 85014; 85018; 85025; 85610; 96360; 99285; A9270; J7040; 96361; 99284; G0378

== ENCOUNTER 2020-07-27 09:15 | Observation (INO) | payer MEDICARE ==
[~2020-07-27 09:15] MED LIST changes: +Famotidine 20 MG/2 ML SDV IVPUSH SCH; -Lactated Ringers 1,000 ML IV SCH; -Lidocaine 2% 5 ML SDV ONE; +Midazolam 1 MG/ML 2 ML SDV ONE; +Ondansetron 4 MG/2 ML SDV ONE; +Scopolamine 1.5 MG Transdermal Patch TRDERM SCH; -Sodium Chloride 0.9% 10 ML SDV IV PRN; -Sodium Chloride 0.9% 10 ML Syringe FLUSH PRN; -Sodium Chloride 0.9% 2.5 ML Syringe FLUSH PRN; +Tranexamic Acid 1,000 MG in Sodium Chloride 0.9% 100 ML IV ONE; +ceFAZolin 2 GM in Premix Bag 1 BAG IV SCH
[2020-07-27] MEDS: Lactated Ringers 1,000 ML IV SCH (09:40)
[2020-07-27] MEDS ORDERED: Famotidine 20 MG/2 ML SDV IVPUSH SCH (10:00)
[2020-07-27] MEDS ORDERED: Scopolamine 1.5 MG Transdermal Patch TRDERM SCH (10:00)
--- NOTE | 2020-07-27 10:03 | PCM.PREANE ---
Preanesthetic Assessment - Anesthesia/Transfusion/Family Hx Anesthesia History: Prior Anesthesia Without Reaction Family History of Anesthesia Reaction: No Transfusion History: No Prior Transfusion(s) - Review of Systems General: No Symptoms Pulmonary: No Symptoms Cardiovascular: No Symptoms Gastrointestinal: No Symptoms Neurological: No Symptoms Other: Reports: None - Physical Assessment NPO Status Date: 07/26/20 Vital Signs: Last Vital Signs Temp 97.3 F 07/27/20 09:33 Pulse 105 H 07/27/20 09:33 Resp 18 07/27/20 09:33 BP 160/89 H 07/27/20 09:33 Pulse Ox 96 07/27/20 09:33 Height: 5 ft 8 in Weight: 111.13 kg Mental Status: Alert & Oriented x3 Airway Class: Mallampati = 2 Dentition: Reports: Normal Dentition ROM/Head Extension: Full Lungs: Clear to Auscultation, Normal Respiratory Effort Cardiovascular: Regular Rate, Regular Rhythm - Allergies Allergies/Adverse Reactions: Allergies Allergy/AdvReac Type Severity Reaction Status Date / Time No Known Allergies Allergy Verified 07/21/20 08:02 - Blood Blood Available: No - Anesthesia Plan Pre-Op Medication Ordered: None - Acknowledgements Anesthesia Type Planned: Spinal Pt an Appropriate Candidate for the Planned Anesthesia: Yes Alternatives and Risks of Anesthesia Discussed w Pt/Guardian: Yes Pt/Guardian Understands and Agrees with Anesthesia Plan: Yes Additional Comments: PMH: parox a fib, htn, RA, thyroid replacement, DM2 PLAN: spinal with iv sedation PreAnesthesia Questionnaire HEENT History: Reports: Impaired Vision, Other (See Below) Other HEENT History: reading glasses Cardiovascular History: Reports: Afib, High Cholesterol, Hypertension Respiratory History: Reports: None Gastrointestinal History: Reports: Colon Polyp, Other (See Below) Other Gastrointestinal History: occasional heartburn Genitourinary History: Reports: Prostate Disorder Other Genitourinary History: prostate cancer Musculoskeletal History: Reports: RA Neurological History: Reports: None Psychiatric History: Reports: None Endocrine/Metabolic History: Reports: Hypothyroidism Hematologic History: Reports: None Immunologic History: Reports: None Oncologic (Cancer) History: Reports: Prostate Other Oncologic History: states treated with radiation Dermatologic History: Reports: None - Infectious Disease History Infectious Disease History: Reports: Chicken Pox, Measles Other Infectious Disease History: as a child - Past Surgical History Other Musculoskeletal Surgeries/Procedures:: flexor tendon repair - SUBSTANCE USE Tobacco Use Status *Q: Former Tobacco User - HOME MEDS Home Medications: Home Meds Folic Acid 1 mg PO DAILY 05/06/19 [History] Glucosam/Chond/Collagen/Hyalur [Glucosamine Chondroitin] 2 tab PO DAILY 05/06/19 [History] Levothyroxine Sodium [Synthroid] 200 mcg PO DAILY 05/06/19 [History] Lisinopril 10 mg PO DAILY 05/06/19 [History] Multivit-Min/FA/Lycopen/Lutein [Centrum Silver Men Tablet] 1 tab PO DAILY 05/06/19 [History] Rosuvastatin Calcium 20 mg PO BEDTIME 05/06/19 [History] dilTIAZem HCL [Diltiazem 24Hr ER (Xr)] 240 mg PO DAILY 05/06/19 [History] metHOTREXate sodium [Methotrexate] 8 tab PO WEEKLY 05/06/19 [History] Aspirin [Low Dose Aspirin EC] 1 tab PO DAILY 07/21/20 [History] Calcium Carbonate [Tums] 1 tab PO ASDIRECTED PRN 07/21/20 [History] Cholecalciferol (Vitamin D3) [Vitamin D3] 1 tab PO DAILY 07/21/20 [History] metFORMIN HCl [Fortamet] 1 tab PO BID 07/21/20 [History] - CURRENT (IN HOUSE) MEDS Current Meds: Current Medications Famotidine (Pepcid) 40 mg IVPUSH ONARRIVE [facility] Ropivacaine 49.25 ml/Ketorolac Tromethamine 30 mg/Epinephrine HCl 0.5 mg/Clonidine HCl 80 mcg/ Sodium Chloride 75 mls @ 50 mls/sec INJECT ASDIRECTED [facility] Cefazolin Sodium/Dextrose 2 gm (/ Premix) 50 mls @ 100 mls/hr IV ONCALL [facility] Lactated Ringer's (Ringers, Lactated) 1,000 mls @ 100 mls/hr IV ASDIRECTED [facility] Last Admin: 07/27/20 09:40 Dose: 100 mls/hr Documented by: Scopolamine (Transderm-Scop) 1.5 mg TRDERM ONARRIVE [facility] Discontinued Medications Famotidine (Pepcid) 40 mg IVPUSH ONARRIVE [facility] Fentanyl (Sublimaze) Confirm Administered Dose 100 mcg .ROUTE .STK-MED ONE Stop: 07/27/20 09:14 Tranexamic Acid 1,000 mg/ (Sodium Chloride) 110 mls @ 600 mls/hr IV ASDIRECTED ONE Stop: 07/24/20 11:15 Lidocaine HCl (Xylocaine-Mpf 1%) Confirm Administered Dose 5 ml .ROUTE .STK-MED ONE Stop: 07/27/20 09:13 Midazolam HCl (Versed 1 Mg/Ml) Confirm Administered Dose 2 mg .ROUTE .STK-MED ONE Stop: 07/27/20 09:14 Ondansetron HCl (Zofran) Confirm Administered Dose 4 mg .ROUTE .STK-MED ONE Stop: 07/27/20 09:13 Propofol (Diprivan 20 Ml) Confirm Administered Dose 600 mg .ROUTE .STK-MED ONE Stop: 07/27/20 09:14 Scopolamine (Transderm-Scop) 1.5 mg JATINDER CABALLERO [facility]
[2020-07-27] MEDS ORDERED: Ropivacaine 49.25 ML, Ketorolac 30 MG, EPINEPHrine 0.5 MG, cloNIDine 80 MCG in Sodium C... INJECT SCH (11:15)
[2020-07-27] MEDS ORDERED: ceFAZolin/Dextrose,Iso-Osmotic 2 GM/50 ML Duplex Bag IV ONE (11:27)
[2020-07-27] MEDS ORDERED: ePHEDrine 50 MG/ML SDV ONE (12:15)
[2020-07-27] MEDS ORDERED: Propofol 200 MG/20 ML SDV ONE ×2 (12:35→13:01)
[2020-07-27] MEDS ORDERED: Sodium Chloride 0.9% 10 ML Syringe FLUSH PRN (14:13)
[2020-07-27] MEDS ORDERED: traMADol 50 MG Tab PO PRN (14:13)
[2020-07-27] MEDS ORDERED: Ondansetron 4 MG/2 ML SDV IVPUSH PRN (14:13)
[2020-07-27] MEDS ORDERED: diphenhydrAMINE 25 MG Cap PO PRN (14:13)
[2020-07-27] MEDS ORDERED: Sodium Chloride 0.9% 2.5 ML Syringe FLUSH PRN (14:13)
[2020-07-27] MEDS ORDERED: Aluminum Hydroxide/Magnesium Hydroxide/Simethicone Susp 30 ML Cup PO PRN (14:13)
[2020-07-27] MEDS ORDERED: Docusate Sodium 100 MG Cap PO PRN (14:13)
[2020-07-27] MEDS ORDERED: Bisacodyl 10 MG Supp RECTAL PRN (14:13)
[2020-07-27] MEDS ORDERED: Bupivacaine 25%/EPINEPHrine/PF 30 ML ONE (14:24)
[2020-07-27] MEDS ORDERED: Lidocaine 2% 5 ML SDV ONE (14:25)
--- NOTE | 2020-07-27 14:27 | PCM.OPNOTE ---
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
--- NOTE | 2020-07-27 14:32 | PCM.OPNOTE ---
- General Post-Op/Procedure Note Date of Surgery/Procedure: 07/27/20 Operative Procedure(s): Left total knee replacement using Iqbal and Neph[employer] knee replacement system Findings: Left knee severe synovitis Full-thickness cartilage loss in all 3 compartments Large marginal osteophytes particularly in the femur Pre Op Diagnosis: Left knee secondary arthritis due to rheumatoid arthritis Post-Op Diagnosis: Left knee secondary arthritis due to rheumatoid arthritis Anesthesia Technique: Spinal Primary Surgeon: Fercho Pineda Silver Service Waiter: Mine Sepulveda Silver Service Waiter Was Necessary: Retraction and positioning Pathology: Synovium and bone cuts to pathology for review EBL in mLs: 10 Complications: None Free Text/Narrative:: Patient is a 69-year-old male with rheumatoid arthritis. He has severe arthritis on radiographs and was no longer able to manage the pain nonoperatively. We discussed the risks and benefits of total knee replacement surgery. The patient consented to proceed with surgery. Patient was medically cleared for surgery. Patient was taken to the operating room. After adequate spinal anesthesia he was placed in a supine position. A tourniquet was placed around the left proximal thigh. The left lower extremities prepped draped in usual sterile manner. The leg elevated and the tourniquet inflated. S a midline incision was used. Skin was incised with a scalpel. Subcutaneous tissue was incised electroc autery. A medial parapatellar arthrotomy was performed and the patella everted laterally. A subtotal synovectomy was performed with electrocautery and a rongeur. The distal femoral cut was made with an intramedullary alignment guide. The femur was sized to a size 4. The distal femur was cut with a 4-in-1 cutting block. The trial component fit well. Lug holes were punched. The tibia was cut with an intramedullary alignment guide. This was sized to a size 6. Good stability was noted throughout the range of motion with an 11 mm insert. The posterior cruciate ligament was intact so a cruciate retaining implant was used. The patella was cut with a cutting clamp. The patella was sized to a 38 mm resurfacing button. The patella tracked well. Trial components were removed. Bony surfaces were pulse lavaged. The components were cemented with antibiotic cement sequentially. The #6 tibia was cemented and excess cement removed. The polyethylene was inserted. The #4 cruciate retaining femoral component was cemented and the excess cement removed. The patellar component was cemented and excess cement removed. After the cemented hardened, the knee was reinspected and no additional cement needed removal. The knee and incision were pulse lavage. The retinaculum was closed with interrupted [id number] #1 Vicryl suture. The subcutaneous tissue was closed with interrupted 2-0 Vicryl suture. Skin was closed with a running Monocryl subcuticular suture. Steri-Strips were applied. Sterile dressing was applied. Patient was accompanied to the recovery in stable condition. Pain medication: Ibuprofen, acetaminophen, oxycodone. Prophylactic antibiotics: IV antibiotics for 24 hours and then oral antibiotics until incision is healed due to rheumatoid arthritis and methotrexate use increasing his risk of infection. Venous thromboembolism prophylaxis: Aspirin enteric-coated tablets 1 daily for 90 days. Restrictions: Weightbearing as tolerated on his left lower extremity with a walker or assistive device as needed. No restrictions. Rehabilitation according to the total knee arthroscopy protocol.
--- NOTE | 2020-07-27 14:55 | PCM.SN.2 ---
- Free Text/Narrative Note: 1440 requested adductor canal block to Left side post L TKA for post op pain control. Pt consent obtained. Verbalized understanding. Pt prepped with cloroprep. 4 inch stimuplex ultra needle used with ultrasound guidance with good view. Bupivicaine 0.25% with epi 20 ml and Lidocaine 2% 5 ml solution injected. Aspiration every 5 ml negative for blood neg. Pt tolerated well. No signs of toxicity noted. All monitors applied. Pt denied any signs and symptoms of toxicity. No parasthesia noted.
--- NOTE | 2020-07-27 14:57 | PCM.POSTAN ---
POST ANESTHESIA ASSESSMENT - MENTAL STATUS Mental Status: Alert - VITAL SIGNS Vital Signs: Last Vital Signs Temp 97.5 F 07/27/20 14:02 Pulse 84 07/27/20 14:52 Resp 17 07/27/20 14:52 BP 118/56 L 07/27/20 14:52 Pulse Ox 96 07/27/20 14:52 - RESPIRATORY Respiratory Status: Respiratory Rate WNL, Airway Patent, O2 Saturation Stable - CARDIOVASCULAR CV Status: Pulse Rate WNL, Blood Pressure Stable - GASTROINTESTINAL GI Status: No Symptoms - PAIN Pain Score: 7 (Pt given adductor canal block. Pt complaining of Left sided hip pain that he states has been there for a long time.) - POST OP HYDRATION Hydration Status: Adequate & Stable (Pt alert and states knee pain is tolerable. VSS)
--- NOTE | 2020-07-27 15:22 | PCM.CONS ---
H&P History of Present Illness - General Date of Service: 07/27/20 Admit Problem/Dx: Admission Diagnosis/Problem Admission Diagnosis/Problem Knee pain Source of Information: Patient History Limitations: Reports: No Limitations - History of Present Illness Initial Comments - Free Text/Narative: This 69-year-old male with past medical history of hypertension, paroxysmal atrial fibrillation, RA on methotrexate, and recent diagnosis of type 2 diabetes presented today for left TKA with Dr. Pineda. Hospital service consulted for medical management of comorbidities. Slade arrived to [facility] unit alert and oriented. Reports he is having very little pain to his left knee and recently requested some morphine. Denies any chest pain shortness of breath or fevers. No cough or palpitations. No abdominal pain. Reports the pain to his knee is sharp and constant. He reports he was recently diagnosed with type 2 diabetes and started on Metformin. Recent A1c 6.6. He reports he has atrial fibrillation which is controlled with diltiazem and has not been on anticoagulation but remains on aspirin daily for this. He denies any CAD no SC and no CVA. Baseline lab work will be obtained. Replace any electrolytes as needed. Reports that he used to smoke but has since quit many years ago. Reports he does drink alcohol 1-2 beers and or hard alcohol mixed drinks nightly. He denies any history of withdrawals. Does not feel tremulous when he does not drink. Left Knee Pain Score (Numeric/FACES): 8 - Related Data Allergies/Adverse Reactions: Allergies Allergy/AdvReac Type Severity Reaction Status Date / Time No Known Allergies Allergy Verified 07/21/20 08:02 Home Medications: Home Meds Folic Acid 1 mg PO DAILY 05/06/19 [History] Glucosam/Chond/Collagen/Hyalur [Glucosamine Chondroitin] 2 tab PO DAILY 05/06/19 [History] Levothyroxine Sodium [Synthroid] 200 mcg PO DAILY 05/06/19 [History] Lisinopril 10 mg PO DAILY 05/06/19 [History] Multivit-Min/FA/Lycopen/Lutein [Centrum Silver Men Tablet] 1 tab PO DAILY 05/06/19 [History] Rosuvastatin Calcium 20 mg PO BEDTIME 05/06/19 [History] dilTIAZem HCL [Diltiazem 24Hr ER (Xr)] 240 mg PO DAILY 05/06/19 [History] metHOTREXate sodium [Methotrexate] 8 tab PO WEEKLY 05/06/19 [History] Aspirin [Low Dose Aspirin EC] 1 tab PO DAILY 07/21/20 [History] Calcium Carbonate [Tums] 1 tab PO ASDIRECTED PRN 07/21/20 [History] Cholecalciferol (Vitamin D3) [Vitamin D3] 1 tab PO DAILY 07/21/20 [History] metFORMIN HCl [Fortamet] 1 tab PO BID 07/21/20 [History] Past Medical History HEENT History: Reports: Impaired Vision, Other (See Below) Other HEENT History: reading glasses Cardiovascular History: Reports: Afib, High Cholesterol, Hypertension Respiratory History: Reports: None Gastrointestinal History: Reports: Colon Polyp, Other (See Below) Other Gastrointestinal History: occasional heartburn Genitourinary History: Reports: Prostate Disorder Other Genitourinary History: prostate cancer Musculoskeletal History: Reports: RA Neurological History: Reports: None Psychiatric History: Reports: None Endocrine/Metabolic History: Reports: Hypothyroidism Hematologic History: Reports: None Immunologic History: Reports: None Oncologic (Cancer) History: Reports: Prostate Other Oncologic History: states treated with radiation Dermatologic History: Reports: None - Infectious Disease History Infectious Disease History: Reports: Chicken Pox, Measles Other Infectious Disease History: as a child - Past Surgical History Other Musculoskeletal Surgeries/Procedures:: flexor tendon repair Social & Family History - Family History Family Medical History: No Pertinent Family History Oncologic: Reports: Colon, Lung, Prostate - Tobacco Use Tobacco Use Status *Q: Former Tobacco User Years of Tobacco use: 45 Used Tobacco, but Quit: Yes Month/Year Tobacco Last Used: 2 yrs ago - Caffeine Use Caffeine Use: Reports: Coffee - Alcohol Use Alcohol Use Frequency: Daily (1-2 beers/mixed drinks nightly) - Recreational Drug Use Drug Use in Last 12 Months: No - Living Situation & Occupation Living situation: Reports: , with Spouse Occupation: Retired H&P Review of Systems - Review of Systems: Review Of Systems: See Below General: Reports: No Symptoms. Denies: Fever, Chills, Malaise, Weakness HEENT: Reports: No Symptoms. Denies: Headaches, Sinus Congestion, Sore Throat, Vertigo Pulmonary: Reports: No Symptoms. Denies: Shortness of Breath Cardiovascular: Reports: No Symptoms. Denies: Chest Pain Gastrointestinal: Reports: No Symptoms. Denies: Abdominal Pain, Nausea, Vomiting Genitourinary: Reports: No Symptoms. Denies: Dysuria, Frequency Musculoskeletal: Reports: Joint Pain (Left knee) Skin: Reports: No Symptoms Psychiatric: Reports: No Symptoms Neurological: Reports: No Symptoms Hematologic/Lymphatic: Reports: No Symptoms Immunologic: Reports: No Symptoms Exam - Exam Exam: See Below - Vital Signs Vital Signs: Last Vital Signs Temp 97.5 F 07/27/20 14:02 Pulse 84 07/27/20 14:52 Resp 17 07/27/20 14:52 BP 118/56 L 07/27/20 14:52 Pulse Ox 96 07/27/20 14:52 Weight: 111.13 kg - Exam Quality Assessment: DVT Prophylaxis. No: Supplemental Oxygen General: Alert, Oriented, Cooperative, Mild Distress (Appears to be in acute pain to his left knee. Quite fidgety at times) HEENT: Conjunctiva Clear, Mucosa Moist & [place], Posterior Pharynx Clear Lungs: Clear to Auscultation, Normal Respiratory Effort Cardiovascular: Regular Rate, Regular Rhythm, Normal S1, Normal S2. No: Irregular Rhythm GI/Abdominal Exam: Normal Bowel Sounds, Soft, Non-Tender Extremities: Normal Inspection, Normal Range of Motion, Non-Tender, No Pedal Edema, Other (Flavio wrap noted to left knee along with polarize) Skin: Incision (Left knee dressing wrapped with Flavio wrap no drainage noted.) Neurological: Cranial Nerves Intact, Strength Equal Bilateral Neuro Extensive - Mental Status: Alert, Oriented x3 Neuro Extensive - Motor, Sensory, Reflexes: CN II-XII Intact Psychiatric: Alert, Normal Affect, Normal Mood - Patient Data Lab Results Last 24 hrs: Laboratory Results - last 24 hr 07/27/20 07/27/20 Range/Units 09:46 09:53 POC Glucose 157 H (60-110) mg/dL Blood Type O POSITIVE Antibody Screen NEGATIVE Sepsis Event Note - Focused Exam Vital Signs: Vital Signs Temp Pulse Resp BP Pulse Ox 07/27/20 14:52 84 17 118/56 L 96 07/27/20 14:47 81 11 L 125/65 95 07/27/20 14:42 80 12 130/64 96 07/27/20 14:37 81 17 133/73 96 07/27/20 14:32 82 12 130/64 95 07/27/20 14:27 80 10 L 118/64 95 07/27/20 14:22 86 10 L 118/72 95 07/27/20 14:17 91 13 110/65 96 07/27/20 14:02 97.5 F 93 12 103/59 L 97 07/27/20 09:33 97.3 F 105 H 18 160/89 H 96 Consult PN Assessment/Plan POD#: 0 Procedures: Procedures ASSAY OF PROTEIN SERUM (04/02/18) ASSAY OF PSA TOTAL (06/08/20) ASSAY OF TOTAL TESTOSTERONE (06/08/20) ASSAY THYROID STIM HORMONE (04/22/20) BONE IMAGING WHOLE BODY (03/14/19) COLONOSCOPY AND BIOPSY (05/09/19) COLONOSCOPY W/LESION REMOVAL (05/09/19) COMPLETE CBC W/AUTO DIFF WBC (07/14/20) COMPREHEN METABOLIC PANEL (04/22/20) CT ABD & PELVIS W/O CONTRAST (05/18/19) DESIGN MLC DEVICE FOR IMRT (06/21/19) ELECTROCARDIOGRAM TRACING (07/14/20) EMERGENCY DEPT VISIT (05/18/19) GLYCOSYLATED HEMOGLOBIN TEST (07/14/20) HEMATOCRIT (05/22/19) HEMOGLOBIN (05/22/19) HEPATIC FUNCTION PANEL (07/14/20) HYDRATION IV INFUSION INIT (05/18/19) LIPID PANEL (04/22/20) METABOLIC PANEL TOTAL CA (07/14/20) NTSTY MODUL RAD TX DLVR SMPL (07/22/19) OFFICE/OUTPATIENT VISIT EST (07/14/20) OFFICE/OUTPATIENT VISIT EST (07/14/20) OFFICE/OUTPATIENT VISIT EST (06/08/20) OFFICE/OUTPATIENT VISIT EST (04/22/20) OFFICE/OUTPATIENT VISIT EST (02/10/20) OFFICE/OUTPATIENT VISIT EST (06/18/19) OFFICE/OUTPATIENT VISIT EST (05/22/19) OFFICE/OUTPATIENT VISIT EST (04/29/19) OFFICE/OUTPATIENT VISIT EST (04/02/18) OFFICE/OUTPATIENT VISIT NEW (05/07/20) OFFICE/OUTPATIENT VISIT NEW (04/29/19) PROTEIN E-PHORESIS SERUM (04/02/18) PROTHROMBIN TIME (07/14/20) RADIATION PHYSICS CONSULT (07/22/19) RADIATION THERAPY DOSE PLAN (06/21/19) RADIATION TREATMENT AID(S) (04/29/19) RADIOTHERAPY DOSE PLAN IMRT (05/24/19) ROUTINE VENIPUNCTURE (07/14/20) TISSUE EXAM BY PATHOLOGIST (02/20/19) UR ALBUMIN SEMIQUANTITATIVE (08/11/16) URINALYSIS AUTO W/O SCOPE (05/18/19) URINALYSIS AUTO W/SCOPE (07/14/20) US TRANSRECTAL (08/25/16) X-RAY EXAM CHEST 2 VIEWS (07/14/20) X-RAY EXAM OF KNEE 1 OR 2 (05/07/20) X-RAY EXAM OF KNEE 3 (04/22/20) (1) S/P total knee arthroplasty SNOMED Code(s): 3720710800580, 904762915, 7845385383502 Code(s): Z96.659 - PRESENCE OF UNSPECIFIED ARTIFICIAL KNEE JOINT Current Visit: Yes Qualifiers: Laterality: left Qualified Code(s): Z96.652 - Presence of left artificial knee joint (2) Paroxysmal atrial fibrillation SNOMED Code(s): 680192165 Code(s): I48.0 - PAROXYSMAL ATRIAL FIBRILLATION Current Visit: Yes (3) Diabetes type 2, controlled SNOMED Code(s): 48383389, 220139739 Code(s): E11.9 - TYPE 2 DIABETES MELLITUS WITHOUT COMPLICATIONS Current Visit: Yes (4) Hypothyroidism SNOMED Code(s): 87623389 Code(s): E03.9 - HYPOTHYROIDISM, UNSPECIFIED Current Visit: Yes (5) Rheumatoid arthritis SNOMED Code(s): 67852294 Code(s): M06.9 - RHEUMATOID ARTHRITIS, UNSPECIFIED Current Visit: Yes (6) History of prostate cancer SNOMED Code(s): 079643789 Code(s): Z85.46 - PERSONAL HISTORY OF MALIGNANT NEOPLASM OF PROSTATE Priority: Medium Current Visit: No (7) Hypertension SNOMED Code(s): 75355042 Code(s): I10 - ESSENTIAL (PRIMARY) HYPERTENSION Priority: High Current Visit: No Qualifiers: Problem List Initiated/Reviewed/Updated: Yes My Orders Last 24 Hours: My Active Orders 07/27/20 15:13 BMP [BASIC METABOLIC PANEL,BMP] [CHEM] Routine CBC WITH AUTO DIFF [HEME] Routine 07/27/20 15:16 MG [MAGNESIUM] [CHEM] Routine Plan: This 69-year-old male admitted with left TKA with Dr. Pineda. Hospital service consulted for medical management of comorbidities 1. Left TKA -Orders per orthopedics -Aspirin for VTE prophylaxis 2. DM type II: -Monitor BMP daily for renal function -NovoLog sliding scale insulin -Check blood sugars 3 times daily AC -Hold Metformin during hospitalization counseled on restarting normally once discharged home 3. Atrial fibrillation/HTN/HLD -Continue diltiazem as well as aspirin for atrial fibrillation -Monitor blood pressure -Continue statin -Monitor potassium and magnesium daily and replace to keep potassium greater than 4 as well as mag greater than 2 secondary to atrial fibrillation VTE prophylaxis: ASA per orthopedics as well as early ambulation CODE STATUS: Full code
[2020-07-27] MEDS ORDERED: Glucagon,Human Recombinant 1 MG Vial IM PRN (15:26)
[2020-07-27] MEDS ORDERED: 50% Dextrose in Water 50 ML Syringe IV PRN (15:26)
[2020-07-27] MEDS: Ketorolac 15 MG/ML SDV IVPUSH SCH ×2 (15:36→20:19)
--- NOTE | 2020-07-27 16:01 | CR ---
Indication: Left knee arthroplasty Technique: Left knee 2 view Findings: Hardware from a left knee arthroplasty is in satisfactory position. Bone alignment is normal. No sign of acute fracture. There are postoperative changes in the soft tissues. Dictated by Antony Joshi MD @ Jul 27 2020 3:58PM Signed by Dr. Antony Joshi @ Jul 27 2020 3:59PM
[2020-07-27] MEDS: Morphine 2 MG/ML SYRINGE IVPUSH PRN ×2 (16:34→21:25)
[2020-07-27] MEDS: Insulin Aspart 100 Units/ML 3 ML Pen SUBCUT SCH (17:27)
[2020-07-27 17:40] LABS: BLOOD UREA NITROGEN,BUN 13 mg/dL (7.0-18.0); CARBON DIOXIDE,CO2 23.9 mmol/L (21.0-32.0); CHLORIDE,CL 101 mmol/L (98-107); GLUCOSE RANDOM 161 mg/dL (74-106); POTASSIUM,K 3.7 mmol/L (3.5-5.1); SODIUM,NA 135 mmol/L (136-148)
[2020-07-27] MEDS: ceFAZolin 2 GM in Premix Bag 1 BAG IV SCH (19:22)
[2020-07-27] MEDS: Aspirin 325 MG Tab PO SCH (19:22)
[2020-07-27] MEDS: oxyCODONE 5 MG Tab PO PRN (19:30)
[2020-07-27] MEDS: Rosuvastatin 10 MG Tab PO SCH (21:25)
[2020-07-28] MEDS: Ketorolac 15 MG/ML SDV IVPUSH SCH (02:03)
[2020-07-28] MEDS: oxyCODONE 5 MG Tab PO PRN ×4 (02:21→18:56)
[2020-07-28] MEDS: Lactated Ringers 1,000 ML IV SCH (02:26)
[2020-07-28] MEDS: ceFAZolin 2 GM in Premix Bag 1 BAG IV SCH (05:49)
--- NOTE | 2020-07-28 07:28 | PCM48HPAN ---
Post Anesthesia Note - EVALUATION WITHIN 48HRS OF ANESTHETIC Vital Signs in Normal Range: Yes Patient Participated in Evaluation: Yes Respiratory Function Stable: Yes Airway Patent: Yes Cardiovascular Function Stable: Yes Hydration Status Stable: Yes Pain Control Satisfactory: Yes Nausea and Vomiting Control Satisfactory: Yes Mental Status Recovered: Yes Vital Signs: Last Vital Signs Temp 97.9 C H 07/28/20 00:00 Pulse 100 07/28/20 00:00 Resp 17 07/28/20 00:00 BP 128/83 07/28/20 00:00 Pulse Ox 92 L 07/28/20 00:00
[2020-07-28] MEDS: Levothyroxine 100 MCG Tab PO SCH (07:30)
[2020-07-28 08:34] LABS: BLOOD UREA NITROGEN,BUN 14 mg/dL (7.0-18.0); CARBON DIOXIDE,CO2 26.5 mmol/L (21.0-32.0); CHLORIDE,CL 99 mmol/L (98-107); GLUCOSE RANDOM 147 mg/dL (74-106); SODIUM,NA 133 mmol/L (136-148)
--- NOTE | 2020-07-28 08:42 | PCM.SURGPN ---
- General Info Date of Service: 07/28/20 (0800) Date of Surgery/Procedure: 07/27/20 (Left TKA) POD#: 1 Admission Diagnosis/Problem: Knee pain Functional Status: Reports: Tolerating Diet (ate supper last evening. No c/o nausea or vomiting), Ambulating (up standing at bedside with staff and walker), Urinating. Denies: Pain Controlled (states between knee pain, he is just not able to get comfortable in the hospital bed) - Review of Systems General: Denies: Fever HEENT: Reports: No Symptoms Pulmonary: Denies: Shortness of Breath Gastrointestinal: Denies: Nausea, Vomiting Musculoskeletal: Reports: Joint Pain (post-operative left knee pain.), Joint Swelling (moderate amount of swelling left knee) Neurological: Denies: Confusion Psychiatric: Denies: No Symptoms - Patient Data Vitals - Most Recent: Last Vital Signs Temp 36.4 C 07/28/20 07:30 Pulse 107 H 07/28/20 07:30 Resp 17 07/28/20 07:30 BP 125/79 07/28/20 07:30 Pulse Ox 92 L 07/28/20 07:30 Weight - Most Recent: 111.13 kg I&O - Last 24 Hours: Intake & Output 07/27/20 07/28/20 07/28/20 22:59 06:59 14:59 Intake Total 476 Balance 476 Lab Results Last 24 Hrs: Laboratory Results - last 24 hr 07/27/20 07/27/20 07/27/20 Range/Units 09:46 09:53 16:34 WBC (4.0-11.0) K/uL RBC (4.50-5.90) M/uL Hgb (13.0-17.0) g/dL Hct (38.0-50.0) % MCV (80.0-98.0) fL MCH (27.0-32.0) pg MCHC (31.0-37.0) g/dL RDW Std Deviation (28.0-62.0) fl RDW Coeff of Bob (11.0-15.0) % Plt Count (150-400) K/uL MPV (7.40-12.00) fL Neut % (Auto) (48.0-80.0) % Lymph % (Auto) (16.0-40.0) % Kay % (Auto) (0.0-15.0) % Eos % (Auto) (0.0-7.0) % Baso % (Auto) (0.0-1.5) % Neut # (Auto) (1.4-5.7) K/uL Lymph # (Auto) (0.6-2.4) K/uL Kay # (Auto) (0.0-0.8) K/uL Eos # (Auto) (0.0-0.7) K/uL Baso # (Auto) (0.0-0.1) K/uL Nucleated RBC % /100WBC Nucleated RBCs # K/uL Sodium (136-148) mmol/L Potassium (3.5-5.1) mmol/L Chloride (98-107) mmol/L Carbon Dioxide (21.0-32.0) mmol/L BUN (7.0-18.0) mg/dL Creatinine (0.8-1.3) mg/dL Est Cr Clr Drug Dosing mL/min Estimated GFR (MDRD) ml/min Glucose (74-106) mg/dL POC Glucose 157 H 160 H (60-110) mg/dL Calcium (8.5-10.1) mg/dL Magnesium (1.8-2.4) mg/dL Blood Type O POSITIVE Antibody Screen NEGATIVE 07/27/20 07/27/20 07/28/20 Range/Units 17:05 17:05 07:13 WBC 12.97 H (4.0-11.0) K/uL RBC 3.94 L (4.50-5.90) M/uL Hgb 13.1 11.4 L (13.0-17.0) g/dL Hct 39.5 34.5 L (38.0-50.0) % MCV 100.3 H (80.0-98.0) fL MCH 33.2 H (27.0-32.0) pg MCHC 33.2 (31.0-37.0) g/dL RDW Std Deviation 52.3 (28.0-62.0) fl RDW Coeff of Bob 14 (11.0-15.0) % Plt Count 199 (150-400) K/uL MPV 9.20 (7.40-12.00) fL Neut % (Auto) 82.5 H (48.0-80.0) % Lymph % (Auto) 9.3 L (16.0-40.0) % Kay % (Auto) 7.5 (0.0-15.0) % Eos % (Auto) 0.5 (0.0-7.0) % Baso % (Auto) 0.2 (0.0-1.5) % Neut # (Auto) 10.7 H (1.4-5.7) K/uL Lymph # (Auto) 1.2 (0.6-2.4) K/uL Kay # (Auto) 1.0 H (0.0-0.8) K/uL Eos # (Auto) 0.1 (0.0-0.7) K/uL Baso # (Auto) 0.0 (0.0-0.1) K/uL Nucleated RBC % 0.0 /100WBC Nucleated RBCs # 0 K/uL Sodium 135 L (136-148) mmol/L Potassium 3.7 (3.5-5.1) mmol/L Chloride 101 (98-107) mmol/L Carbon Dioxide 23.9 (21.0-32.0) mmol/L BUN 13 (7.0-18.0) mg/dL Creatinine 0.8 (0.8-1.3) mg/dL Est Cr Clr Drug Dosing 84.31 mL/min Estimated GFR (MDRD) > 60.0 ml/min Glucose 161 H (74-106) mg/dL POC Glucose (60-110) mg/dL Calcium 8.4 L (8.5-10.1) mg/dL Magnesium 2.1 (1.8-2.4) mg/dL Blood Type Antibody Screen 07/28/20 07/28/20 Range/Units 07:13 07:35 WBC (4.0-11.0) K/uL RBC (4.50-5.90) M/uL Hgb (13.0-17.0) g/dL Hct (38.0-50.0) % MCV (80.0-98.0) fL MCH (27.0-32.0) pg MCHC (31.0-37.0) g/dL RDW Std Deviation (28.0-62.0) fl RDW Coeff of Bob (11.0-15.0) % Plt Count (150-400) K/uL MPV (7.40-12.00) fL Neut % (Auto) (48.0-80.0) % Lymph % (Auto) (16.0-40.0) % Kay % (Auto) (0.0-15.0) % Eos % (Auto) (0.0-7.0) % Baso % (Auto) (0.0-1.5) % Neut # (Auto) (1.4-5.7) K/uL Lymph # (Auto) (0.6-2.4) K/uL Kay # (Auto) (0.0-0.8) K/uL Eos # (Auto) (0.0-0.7) K/uL Baso # (Auto) (0.0-0.1) K/uL Nucleated RBC % /100WBC Nucleated RBCs # K/uL Sodium 133 L (136-148) mmol/L Potassium 4.0 (3.5-5.1) mmol/L Chloride 99 (98-107) mmol/L Carbon Dioxide 26.5 (21.0-32.0) mmol/L BUN 14 (7.0-18.0) mg/dL Creatinine 0.8 (0.8-1.3) mg/dL Est Cr Clr Drug Dosing 84.31 mL/min Estimated GFR (MDRD) > 60.0 ml/min Glucose 147 H (74-106) mg/dL POC Glucose 153 H (60-110) mg/dL Calcium 8.1 L (8.5-10.1) mg/dL Magnesium 2.1 (1.8-2.4) mg/dL Blood Type Antibody Screen Med Orders - Current: Current Medications Al Hydroxide/Mg Hydroxide (Mag-Al Plus) 30 ml PO Q4H PRN PRN Reason: Indigestion Aspirin (Aspirin) 325 mg PO DAILY [facility] Last Admin: 07/27/20 19:22 Dose: 325 mg Documented by: Bisacodyl (Dulcolax) 10 mg RECTAL DAILY PRN PRN Reason: Constipation Dextrose/Water (Dextrose 50% In Water) 50 ml IV ASDIRECTED PRN PRN Reason: Hypoglycemia Diltiazem HCl (Cardizem Cd) 240 mg PO DAILY [facility] Diphenhydramine HCl (Benadryl) 25 - 50 mg PO Q6H PRN PRN Reason: Itching Docusate Sodium (Colace) 100 mg PO BID PRN PRN Reason: Constipation Famotidine (Pepcid) 40 mg IVPUSH ONARRIVE [facility] Last Admin: 07/27/20 10:13 Dose: 40 mg Documented by: Famotidine (Pepcid) 40 mg PO DAILY [facility] Glucagon (Glucagen) 1 mg IM ASDIRECTED PRN PRN Reason: Hypoglycemia Ropivacaine 49.25 ml/Ketorolac Tromethamine 30 mg/Epinephrine HCl 0.5 mg/Clonidine HCl 80 mcg/ Sodium Chloride 75 mls @ 50 mls/sec INJECT ASDIRECTED [facility] Cefazolin Sodium/Dextrose 2 gm (/ Premix) 50 mls @ 100 mls/hr IV ONCALL [facility] Last Admin: 07/28/20 02:23 Dose: 100 mls/hr Documented by: Lactated Ringer's (Ringers, Lactated) 1,000 mls @ 100 mls/hr IV ASDIRECTED [facility] Last Admin: 07/28/20 02:26 Dose: 100 mls/hr Documented by: Insulin Aspart (Novolog) 0 unit SUBCUT TIDAC [facility]; Protocol Last Admin: 07/27/20 17:27 Dose: 1 unit Documented by: Levothyroxine Sodium (Synthroid) 200 mcg PO ACBREAKFAST [facility] Last Admin: 07/28/20 07:30 Dose: 200 mcg Documented by: Lisinopril (Prinivil) 10 mg PO DAILY [facility] Morphine Sulfate (Morphine) 1 - 2 mg IVPUSH Q3H PRN PRN Reason: Pain Last Admin: 07/27/20 21:25 Dose: 1 mg Documented by: Ondansetron HCl (Zofran) 4 mg IVPUSH Q6H PRN PRN Reason: Nausea/Vomiting Oxycodone HCl (Oxycodone) 5 - 10 mg PO Q4H PRN PRN Reason: Pain Last Admin: 07/28/20 07:30 Dose: 10 mg Documented by: Polyethylene Glycol (Miralax) 17 gm PO DAILY [facility] Rosuvastatin Calcium (Crestor) 20 mg PO BEDTIME [facility] Last Admin: 07/27/20 21:25 Dose: 20 mg Documented by: Scopolamine (Transderm-Scop) 1.5 mg TRDERM ONARRIVE [facility] Sodium Chloride (Saline Flush) 10 ml FLUSH ASDIRECTED PRN PRN Reason: Keep Vein Open Sodium Chloride (Saline Flush) 2.5 ml FLUSH ASDIRECTED PRN PRN Reason: Keep Vein Open Tramadol HCl (Ultram) 50 - 100 mg PO Q6H PRN PRN Reason: Pain Last Admin: 07/27/20 15:39 Dose: 50 mg Documented by: Discontinued Medications Cefazolin Sodium/Dextrose (Ancef) Confirm Administered Dose 2 gm IV .STK-MED ONE Stop: 07/27/20 11:28 Ephedrine Sulfate (Ephedrine Sulfate) Confirm Administered Dose 50 mg .ROUTE .S TK-MED ONE Stop: 07/27/20 12:16 Famotidine (Pepcid) 40 mg IVPUSH ONARRIVE [facility] Fentanyl (Sublimaze) Confirm Administered Dose 100 mcg .ROUTE .STK-MED ONE Stop: 07/27/20 09:14 Tranexamic Acid 1,000 mg/ (Sodium Chloride) 110 mls @ 600 mls/hr IV ASDIRECTED ONE Stop: 07/24/20 11:15 Bupivacaine HCl/Epinephrine Bitart (Sensorc Mpf 0.25%-Epi 1:[id number]) Confirm Administered Dose 30 mls @ as directed .ROUTE .STK-MED ONE Stop: 07/27/20 14:25 Cefazolin Sodium/Dextrose 2 gm (/ Premix) 50 mls @ 100 mls/hr IV Q8H [facility] Stop: 07/28/20 03:29 Last Admin: 07/28/20 05:49 Dose: Not Given Documented by: Ketorolac Tromethamine (Toradol) 15 mg IVPUSH Q6H [facility] Stop: 07/28/20 05:00 Last Admin: 07/28/20 02:03 Dose: 15 mg Documented by: Lidocaine (Xylocaine-Mpf 2%) Confirm Administered Dose 5 ml .ROUTE .STK-MED ONE Stop: 07/27/20 14:26 Lidocaine HCl (Xylocaine-Mpf 1%) Confirm Administered Dose 5 ml .ROUTE .STK-MED ONE Stop: 07/27/20 09:13 Midazolam HCl (Versed 1 Mg/Ml) Confirm Administered Dose 2 mg .ROUTE .STK-MED ONE Stop: 07/27/20 09:14 Ondansetron HCl (Zofran) Confirm Administered Dose 4 mg .ROUTE .STK-MED ONE Stop: 07/27/20 09:13 Propofol (Diprivan 20 Ml) Confirm Administered Dose 600 mg .ROUTE .STK-MED ONE Stop: 07/27/20 09:14 Propofol (Diprivan 20 Ml) Confirm Administered Dose 200 mg .ROUTE .STK-MED ONE Stop: 07/27/20 12:36 Propofol (Diprivan 20 Ml) Confirm Administered Dose 400 mg .ROUTE .STK-MED ONE Stop: 07/27/20 13:02 Scopolamine (Transderm-Scop) 1.5 mg TRDERM ONARRIVE [facility] Last Admin: 07/27/20 10:05 Dose: 1.5 mg Documented by: - Exam Wound/Incisions: Dressing Dry and Intact (dressing was reinforced last evening d/t shadow of blood. Dressings removed with no active drainage.), Other (moderate amount of generalized soft tissue swelling to knee). No: Erythema Quality Assessment: DVT Prophylaxis (ASA started last night. SCDs bilaterally. ambulation) General: Alert, Oriented, Cooperative, No Acute Distress Lungs: Normal Respiratory Effort Extremities: No Pedal Edema, Normal Capillary Refill, Other (no erythema, pain or swelling to left calf. Sensation grossly intact to foot. PP2+) Skin: Warm, Dry Neurological: Normal Speech, Normal Tone Psy/Mental Status: Alert, Normal Affect Sepsis Event Note - Evaluation Sepsis Screening Result: No Definite Risk - Focused Exam Vital Signs: Vital Signs Temp Pulse Resp BP Pulse Ox 07/28/20 07:30 36.4 C 107 H 17 125/79 92 L 07/28/20 00:00 97.9 C H 100 17 128/83 92 L - Problem List Review Problem List Initiated/Reviewed/Updated: Yes - My Orders Last 24 Hours: Active Orders 24 hr Category Date Time Status Blood Glucose Check, Bedside [RC] TIDMEALS Care 07/27/20 15:26 Active Communication Order [RC] PRN Care 07/27/20 14:14 Active Cooling Warming Measures [RC] ASDIRECTED Care 07/27/20 14:14 Active Neurovascular Check [RC] Q2HR Care 07/27/20 14:14 Active Notify Provider Consults [RC] ASDIRECTED Care 07/27/20 14:22 Active Notify Provider Vital Signs [RC] ASDIRECTED Care 07/27/20 14:14 Active RT Incentive Spirometry [RC] Q1HWA Care 07/27/20 14:14 Active Vital Signs [RC] Q4H Care 07/27/20 14:14 Active Wound Care [RC] DAILY Care 07/27/20 14:14 Active Consult to Physician [CONS] Routine Cons 07/27/20 14:13 Active PT Evaluation and Treatment [CONS] Routine Cons 07/27/20 14:14 Active [employer] Diet [DIET] Diet 07/27/20 Dinner Active HEMOGLOBIN/HEMATOCRIT,HH [HEME] DAILY Lab 07/29/20 06:00 Ordered Alum Hydrox/Mag Hydrox/Simeth [Mag-Al Plus] Med 07/27/20 14:13 Active 30 ml PO Q4H PRN Aspirin Med 07/27/20 19:00 Active 325 mg PO DAILY Dextrose 50% in Water Med 07/27/20 15:26 Active 50 ml IV ASDIRECTED PRN Diltiazem [Cardizem CD] Med 07/28/20 09:00 Active 240 mg PO DAILY Docusate Sodium [Colace] Med 07/27/20 14:13 Active 100 mg PO BID PRN Famotidine [Pepcid] Med 07/27/20 10:00 Active 40 mg IVPUSH ONARRIVE Famotidine [Pepcid] Med 07/28/20 09:00 Active 40 mg PO DAILY Glucagon,Human Recombinant [GlucaGen] Med 07/27/20 15:26 Active 1 mg IM ASDIRECTED PRN Insulin Aspart [NovoLOG] Med 07/27/20 17:00 Active See Protocol SUBCUT TIDAC Levothyroxine [Synthroid] Med 07/28/20 07:30 Active 200 mcg PO ACBREAKFAST Morphine Med 07/27/20 14:13 Active 1 - 2 mg IVPUSH Q3H PRN Ondansetron [Zofran] Med 07/27/20 14:13 Active 4 mg IVPUSH Q6H PRN Ropivacaine [Naropin 0.2%] 49.25 ml Med 07/27/20 11:15 Active Ketorolac [Toradol] 30 mg EPINEPHrine [Adrenalin] 0.5 mg cloNIDine [Duraclon] 80 mcg Sodium Chloride 0.9% [Normal Saline] 23.45 ml INJECT ASDIRECTED Rosuvastatin [Crestor] Med 07/27/20 21:00 Active 20 mg PO BEDTIME Scopolamine [Transderm-Scop] Med 07/27/20 10:00 Active 1.5 mg TRDERM ONARRIVE Sodium Chloride 0.9% [Saline Flush] Med 07/27/20 14:13 Active 10 ml FLUSH ASDIRECTED PRN Sodium Chloride 0.9% [Saline Flush] Med 07/27/20 14:13 Active 2.5 ml FLUSH ASDIRECTED PRN bisacodyL [Dulcolax] Med 07/27/20 14:13 Active 10 mg RECTAL DAILY PRN ceFAZolin [Ancef] 2 gm Med 07/27/20 08:00 Active Premix Bag 1 bag IV ONCALL diphenhydrAMINE [Benadryl] Med 07/27/20 14:13 Active 25 - 50 mg PO Q6H PRN lisinopriL [Prinivil] Med 07/28/20 09:00 Active 10 mg PO DAILY oxyCODONE Med 07/27/20 14:13 Active 5 - 10 mg PO Q4H PRN polyethylene glycoL 3350 [MiraLAX] Med 07/28/20 09:00 Active 17 gm PO DAILY traMADol [Ultram] Med 07/27/20 14:13 Active 50 - 100 mg PO Q6H PRN Convert IV to Saline Lock [OM.PC] PRN Oth 07/27/20 14:15 Ordered Convert IV to Saline Lock [OM.PC] PRN Oth 07/28/20 14:15 Ordered Ice Therapy [OM.PC] Routine Oth 07/27/20 14:14 Ordered Sequential Compression Device [OM.PC] Routine Oth 07/27/20 08:00 Ordered Medication Orders Al Hydroxide/Mg Hydroxide (Mag-Al Plus) 30 ml PO Q4H PRN PRN Reason: Indigestion Aspirin (Aspirin) 325 mg PO DAILY [facility] Last Admin: 07/27/20 19:22 Dose: 325 mg Documented by: GROTALI Bisacodyl (Dulcolax) 10 mg RECTAL DAILY PRN PRN Reason: Constipation Dextrose/Water (Dextrose 50% In Water) 50 ml IV ASDIRECTED PRN PRN Reason: Hypoglycemia Diltiazem HCl (Cardizem Cd) 240 mg PO DAILY [facility] Diphenhydramine HCl (Benadryl) 25 - 50 mg PO Q6H PRN PRN Reason: Itching Docusate Sodium (Colace) 100 mg PO BID PRN PRN Reason: Constipation Famotidine (Pepcid) 40 mg IVPUSH ONARRIVE [facility] Last Admin: 07/27/20 10:13 Dose: 40 mg Documented by: MADIE Famotidine (Pepcid) 40 mg PO DAILY [facility] Glucagon (Glucagen) 1 mg IM ASDIRECTED PRN PRN Reason: Hypoglycemia Ropivacaine 49.25 ml/Ketorolac Tromethamine 30 mg/Epinephrine HCl 0.5 mg/Clonidine HCl 80 mcg/ Sodium Chloride 75 mls @ 50 mls/sec INJECT ASDIRECTED [facility] Cefazolin Sodium/Dextrose 2 gm (/ Premix) 50 mls @ 100 mls/hr IV ONCALL [facility] Last Admin: 07/28/20 02:23 Dose: 100 mls/hr Documented by: IZABELLA Lactated Ringer's (Ringers, Lactated) 1,000 mls @ 100 mls/hr IV ASDIRECTED [facility] Last Admin: 07/28/20 02:26 Dose: 100 mls/hr Documented by: Infusion: 07/27/20 19:40 Dose: 100 mls/hr Documented by: Admin: 07/27/20 09:40 Dose: 100 mls/hr Documented by: MADIE Insulin Aspart (Novolog) 0 unit SUBCUT TIDAC [facility]; Protocol Last Admin: 07/27/20 17:27 Dose: 1 unit Documented by: JENNIFER Levothyroxine Sodium (Synthroid) 200 mcg PO ACBREAKFAST [facility] Last Admin: 07/28/20 07:30 Dose: 200 mcg Documented by: IZABELLA Lisinopril (Prinivil) 10 mg PO DAILY [facility] Morphine Sulfate (Morphine) 1 - 2 mg IVPUSH Q3H PRN PRN Reason: Pain Last Admin: 07/27/20 21:25 Dose: 1 mg Documented by: Admin: 07/27/20 16:34 Dose: 2 mg Documented by: JENNIFER Ondansetron HCl (Zofran) 4 mg IVPUSH Q6H PRN PRN Reason: Nausea/Vomiting Oxycodone HCl (Oxycodone) 5 - 10 mg PO Q4H PRN PRN Reason: Pain Last Admin: 07/28/20 07:30 Dose: 10 mg Documented by: Admin: 07/28/20 02:21 Dose: 10 mg Documented by: Admin: 07/27/20 19:30 Dose: 5 mg Documented by: MUSA Polyethylene Glycol (Miralax) 17 gm PO DAILY [facility] Rosuvastatin Calcium (Crestor) 20 mg PO BEDTIME [facility] Last Admin: 07/27/20 21:25 Dose: 20 mg Documented by: MUSA Scopolamine (Transderm-Scop) 1.5 mg TRDERM ONARRIVE [facility] Sodium Chloride (Saline Flush) 10 ml FLUSH ASDIRECTED PRN PRN Reason: Keep Vein Open Sodium Chloride (Saline Flush) 2.5 ml FLUSH ASDIRECTED PRN PRN Reason: Keep Vein Open Tramadol HCl (Ultram) 50 - 100 mg PO Q6H PRN PRN Reason: Pain Last Admin: 07/27/20 15:39 Dose: 50 mg Documented by: JENNIFER - Assessment Assessment (Free Text/Narrative):: s/p Left TKA - Plan Plan (Free Text/Narrative):: Tolerating po food/fluids w/o N/V. Afebrile. Hg yesterday 13.1 post-operatively. DVT prophylaxis : ASA initiated yesterday, SCDs bilaterally, compression stocking & ambulation. Prophylactic Ancef completed. Pain : managed with oral oxycodone. Reinforced that he will not be pain free, but rather tolerable of the pain. As he did not get to his med/surg room until after 1500, he did not receive PT yesterday. He will be seen by PT today and will follow up to see his progress. At this time, do not expect discharge home today d/t need for PT and continued pain control to determine home management. Slade had no additional questions. Surgical dressing was removed. Incision well approximated. Steri-strips intact. No active drainage. AquaCell bandage applied. Moderate amount of soft tissue swelling. He is advised to use Polar Ice anytime he is resting. Hospitalist services are consulting for medical management.
[2020-07-28] MEDS: Aspirin 325 MG Tab PO SCH (09:23)
[2020-07-28] MEDS: Diltiazem 120 MG Cap.CD PO SCH (09:23)
[2020-07-28] MEDS: Famotidine 20 MG Tab PO SCH (09:23)
[2020-07-28] MEDS: Polyethylene Glycol 3350 Powder 17 GM Packet PO SCH (09:24)
[2020-07-28] MEDS: Lisinopril 10 MG Tab PO SCH (09:24)
[2020-07-28] MEDS: Insulin Aspart 100 Units/ML 3 ML Pen SUBCUT SCH ×4 (09:24→17:22)
[2020-07-28] MEDS: Morphine 2 MG/ML SYRINGE IVPUSH PRN (09:35)
--- NOTE | 2020-07-28 10:54 | PCM.CONSN ---
- General Info Date of Service: 07/28/20 Admission Dx/Problem (Free Text): Admission Diagnosis/Problem Admission Diagnosis/Problem Knee pain Subjective Update: Denies any chest pain. No palpitations or shortness of breath. Continues to have moderate pain to left knee. He is up ambulating with physical therapy. Blood sugars and blood pressures are stable. Functional Status: Reports: Tolerating Diet, Ambulating, Urinating. Denies: Pain Controlled - Review of Systems General: Reports: No Symptoms. Denies: Weakness, Fatigue HEENT: Reports: No Symptoms. Denies: Headaches, Sore Throat Pulmonary: Reports: No Symptoms. Denies: Shortness of Breath Cardiovascular: Reports: No Symptoms. Denies: Chest Pain Gastrointestinal: Reports: No Symptoms. Denies: Abdominal Pain, Nausea, Vomiting Genitourinary: Reports: No Symptoms. Denies: Dysuria, Frequency, Burning Musculoskeletal: Reports: Joint Pain (Left knee) Skin: Reports: No Symptoms Neurological: Reports: No Symptoms Psychiatric: Reports: No Symptoms - Patient Data Vitals - Most Recent: Last Vital Signs Temp 97.6 F 07/28/20 07:30 Pulse 107 H 07/28/20 09:23 Resp 17 07/28/20 07:30 BP 125/79 07/28/20 09:24 Pulse Ox 92 L 07/28/20 07:30 Weight - Most Recent: 111.13 kg I&O - Last 24 Hours: Intake & Output 07/27/20 07/28/20 07/28/20 22:59 06:59 14:59 Intake Total 476 400 Output Total 0 Balance 476 400 Lab Results Last 24 Hours: Laboratory Results - last 24 hr 07/27/20 07/27/20 07/27/20 Range/Units 09:53 16:34 17:05 WBC 12.97 H (4.0-11.0) K/uL RBC 3.94 L (4.50-5.90) M/uL Hgb 13.1 (13.0-17.0) g/dL Hct 39.5 (38.0-50.0) % MCV 100.3 H (80.0-98.0) fL MCH 33.2 H (27.0-32.0) pg MCHC 33.2 (31.0-37.0) g/dL RDW Std Deviation 52.3 (28.0-62.0) fl RDW Coeff of Bob 14 (11.0-15.0) % Plt Count 199 (150-400) K/uL MPV 9.20 (7.40-12.00) fL Neut % (Auto) 82.5 H (48.0-80.0) % Lymph % (Auto) 9.3 L (16.0-40.0) % [place] % (Auto) 7.5 (0.0-15.0) % Eos % (Auto) 0.5 (0.0-7.0) % Baso % (Auto) 0.2 (0.0-1.5) % Neut # (Auto) 10.7 H (1.4-5.7) K/uL Lymph # (Auto) 1.2 (0.6-2.4) K/uL [place] # (Auto) 1.0 H (0.0-0.8) K/uL Eos # (Auto) 0.1 (0.0-0.7) K/uL Baso # (Auto) 0.0 (0.0-0.1) K/uL Nucleated RBC % 0.0 /100WBC Nucleated RBCs # 0 K/uL Sodium (136-148) mmol/L Potassium (3.5-5.1) mmol/L Chloride (98-107) mmol/L Carbon Dioxide (21.0-32.0) mmol/L BUN (7.0-18.0) mg/dL Creatinine (0.8-1.3) mg/dL Est Cr Clr Drug Dosing mL/min Estimated GFR (MDRD) ml/min Glucose (74-106) mg/dL POC Glucose 157 H 160 H (60-110) mg/dL Calcium (8.5-10.1) mg/dL Magnesium (1.8-2.4) mg/dL 07/27/20 07/28/20 07/28/20 Range/Units 17:05 07:13 07:13 WBC (4.0-11.0) K/uL RBC (4.50-5.90) M/uL Hgb 11.4 L (13.0-17.0) g/dL Hct 34.5 L (38.0-50.0) % MCV (80.0-98.0) fL MCH (27.0-32.0) pg MCHC (31.0-37.0) g/dL RDW Std Deviation (28.0-62.0) fl RDW Coeff of Bob (11.0-15.0) % Plt Count (150-400) K/uL MPV (7.40-12.00) fL Neut % (Auto) (48.0-80.0) % Lymph % (Auto) (16.0-40.0) % [place] % (Auto) (0.0-15.0) % Eos % (Auto) (0.0-7.0) % Baso % (Auto) (0.0-1.5) % Neut # (Auto) (1.4-5.7) K/uL Lymph # (Auto) (0.6-2.4) K/uL [place] # (Auto) (0.0-0.8) K/uL Eos # (Auto) (0.0-0.7) K/uL Baso # (Auto) (0.0-0.1) K/uL Nucleated RBC % /100WBC Nucleated RBCs # K/uL Sodium 135 L 133 L (136-148) mmol/L Potassium 3.7 4.0 (3.5-5.1) mmol/L Chloride 101 99 (98-107) mmol/L Carbon Dioxide 23.9 26.5 (21.0-32.0) mmol/L BUN 13 14 (7.0-18.0) mg/dL Creatinine 0.8 0.8 (0.8-1.3) mg/dL Est Cr Clr Drug Dosing 84.31 84.31 mL/min Estimated GFR (MDRD) > 60.0 > 60.0 ml/min Glucose 161 H 147 H (74-106) mg/dL POC Glucose (60-110) mg/dL Calcium 8.4 L 8.1 L (8.5-10.1) mg/dL Magnesium 2.1 2.1 (1.8-2.4) mg/dL 07/28/20 Range/Units 07:35 WBC (4.0-11.0) K/uL RBC (4.50-5.90) M/uL Hgb (13.0-17.0) g/dL Hct (38.0-50.0) % MCV (80.0-98.0) fL MCH (27.0-32.0) pg MCHC (31.0-37.0) g/dL RDW Std Deviation (28.0-62.0) fl RDW Coeff of Bob (11.0-15.0) % Plt Count (150-400) K/uL MPV (7.40-12.00) fL Neut % (Auto) (48.0-80.0) % Lymph % (Auto) (16.0-40.0) % [place] % (Auto) (0.0-15.0) % Eos % (Auto) (0.0-7.0) % Baso % (Auto) (0.0-1.5) % Neut # (Auto) (1.4-5.7) K/uL Lymph # (Auto) (0.6-2.4) K/uL [place] # (Auto) (0.0-0.8) K/uL Eos # (Auto) (0.0-0.7) K/uL Baso # (Auto) (0.0-0.1) K/uL Nucleated RBC % /100WBC Nucleated RBCs # K/uL Sodium (136-148) mmol/L Potassium (3.5-5.1) mmol/L Chloride (98-107) mmol/L Carbon Dioxide (21.0-32.0) mmol/L BUN (7.0-18.0) mg/dL Creatinine (0.8-1.3) mg/dL Est Cr Clr Drug Dosing mL/min Estimated GFR (MDRD) ml/min Glucose (74-106) mg/dL POC Glucose 153 H (60-110) mg/dL Calcium (8.5-10.1) mg/dL Magnesium (1.8-2.4) mg/dL Med Orders - Current: Current Medications Al Hydroxide/Mg Hydroxide (Mag-Al Plus) 30 ml PO Q4H PRN PRN Reason: Indigestion Aspirin (Aspirin) 325 mg PO DAILY [facility] Last Admin: 07/28/20 09:23 Dose: 325 mg Documented by: Bisacodyl (Dulcolax) 10 mg RECTAL DAILY PRN PRN Reason: Constipation Dextrose/Water (Dextrose 50% In Water) 50 ml IV ASDIRECTED PRN PRN Reason: Hypoglycemia Diltiazem HCl (Cardizem Cd) 240 mg PO DAILY [facility] Last Admin: 07/28/20 09:23 Dose: 240 mg Documented by: Diphenhydramine HCl (Benadryl) 25 - 50 mg PO Q6H PRN PRN Reason: Itching Docusate Sodium (Colace) 100 mg PO BID PRN PRN Reason: Constipation Famotidine (Pepcid) 40 mg IVPUSH ONARRIVE [facility] Last Admin: 07/27/20 10:13 Dose: 40 mg Documented by: Famotidine (Pepcid) 40 mg PO DAILY [facility] Last Admin: 07/28/20 09:23 Dose: 40 mg Documented by: Glucagon (Glucagen) 1 mg IM ASDIRECTED PRN PRN Reason: Hypoglycemia Ropivacaine 49.25 ml/Ketorolac Tromethamine 30 mg/Epinephrine HCl 0.5 mg/Clonidine HCl 80 mcg/ Sodium Chloride 75 mls @ 50 mls/sec INJECT ASDIRECTED [facility] Cefazolin Sodium/Dextrose 2 gm (/ Premix) 50 mls @ 100 mls/hr IV ONCALL [facility] Last Admin: 07/28/20 02:23 Dose: 100 mls/hr Documented by: Lactated Ringer's (Ringers, Lactated) 1,000 mls @ 100 mls/hr IV ASDIRECTED [facility] Last Admin: 07/28/20 02:26 Dose: 100 mls/hr Documented by: Insulin Aspart (Novolog) 0 unit SUBCUT TIDAC [facility]; Protocol Last Admin: 07/28/20 09:24 Dose: 1 unit Documented by: Levothyroxine Sodium (Synthroid) 200 mcg PO ACBREAKFAST [facility] Last Admin: 07/28/20 07:30 Dose: 200 mcg Documented by: Lisinopril (Prinivil) 10 mg PO DAILY [facility] Last Admin: 07/28/20 09:24 Dose: 10 mg Documented by: Morphine Sulfate (Morphine) 1 - 2 mg IVPUSH Q3H PRN PRN Reason: Pain Last Admin: 07/28/20 09:35 Dose: 2 mg Documented by: Ondansetron HCl (Zofran) 4 mg IVPUSH Q6H PRN PRN Reason: Nausea/Vomiting Oxycodone HCl (Oxycodone) 5 - 10 mg PO Q4H PRN PRN Reason: Pain Last Admin: 12/08/20 07:30 Dose: 10 mg Documented by: Polyethylene Glycol (Miralax) 17 gm PO DAILY [facility] Last Admin: 07/28/20 09:24 Dose: 17 gm Documented by: Rosuvastatin Calcium (Crestor) 20 mg PO BEDTIME [facility] Last Admin: 07/27/20 21:25 Dose: 20 mg Documented by: Scopolamine (Transderm-Scop) 1.5 mg TRDERM ONARRIVE [facility] Sodium Chloride (Saline Flush) 10 ml FLUSH ASDIRECTED PRN PRN Reason: Keep Vein Open Sodium Chloride (Saline Flush) 2.5 ml FLUSH ASDIRECTED PRN PRN Reason: Keep Vein Open Tramadol HCl (Ultram) 50 - 100 mg PO Q6H PRN PRN Reason: Pain Last Admin: 07/27/20 15:39 Dose: 50 mg Documented by: Discontinued Medications Cefazolin Sodium/Dextrose (Ancef) Confirm Administered Dose 2 gm IV .STK-MED ONE Stop: 07/27/20 11:28 Ephedrine Sulfate (Ephedrine Sulfate) Confirm Administered Dose 50 mg .ROUTE .STK-MED ONE Stop: 07/27/20 12:16 Famotidine (Pepcid) 40 mg IVPUSH ONARRIVE [facility] Fentanyl (Sublimaze) Confirm Administered Dose 100 mcg .ROUTE .STK-MED ONE Stop: 07/27/20 09:14 Tranexamic Acid 1,000 mg/ (Sodium Chloride) 110 mls @ 600 mls/hr IV ASDIRECTED ONE Stop: 07/24/20 11:15 Bupivacaine HCl/Epinephrine Bitart (Sensorc Mpf 0.25%-Epi 1:190061) Confirm Administered Dose 30 mls @ as directed .ROUTE .STK-MED ONE Stop: 07/27/20 14:25 Cefazolin Sodium/Dextrose 2 gm (/ Premix) 50 mls @ 100 mls/hr IV Q8H [facility] Stop: 07/28/20 03:29 Last Admin: 07/28/20 05:49 Dose: Not Given Documented by: Ketorolac Tromethamine (Toradol) 15 mg IVPUSH Q6H [facility] Stop: 07/28/20 05:00 Last Admin: 07/28/20 02:03 Dose: 15 mg Documented by: Lidocaine (Xylocaine-Mpf 2%) Confirm Administered Dose 5 ml .ROUTE .STK-MED ONE Stop: 07/27/20 14:26 Lidocaine HCl (Xylocaine-Mpf 1%) Confirm Administered Dose 5 ml .ROUTE .STK-MED ONE Stop: 07/27/20 09:13 Midazolam HCl (Versed 1 Mg/Ml) Confirm Administered Dose 2 mg .ROUTE .STK-MED ONE Stop: 07/27/20 09:14 Ondansetron HCl (Zofran) Confirm Administered Dose 4 mg .ROUTE .STK-MED ONE Stop: 07/27/20 09:13 Propofol (Diprivan 20 Ml) Confirm Administered Dose 600 mg .ROUTE .STK-MED ONE Stop: 07/27/20 09:14 Propofol (Diprivan 20 Ml) Confirm Administered Dose 200 mg .ROUTE .STK-MED ONE Stop: 07/27/20 12:36 Propofol (Diprivan 20 Ml) Confirm Administered Dose 400 mg .ROUTE .STK-MED ONE Stop: 07/27/20 13:02 Scopolamine (Transderm-Scop) 1.5 mg [facility] ONARRIVE [facility] Last Admin: 07/27/20 10:05 Dose: 1.5 mg Documented by: - Exam General: Alert, Oriented, Cooperative, No Acute Distress Neck: Supple Lungs: Clear to Auscultation, Normal Respiratory Effort Cardiovascular: Regular Rate, Regular Rhythm, No Murmurs GI/Abdominal Exam: Normal Bowel Sounds, Soft, Non-Tender Back Exam: Normal Inspection, Full Range of Motion Extremities: Normal Inspection, Normal Range of Motion, Non-Tender, No Pedal Edema Wound/Incisions: Dressing Dry and Intact Neurological: No New Focal Deficit Psy/Mental Status: Alert, Normal Affect, Normal Mood Sepsis Event Note - Evaluation Sepsis Screening Result: No Definite Risk - Focused Exam Vital Signs: Vital Signs Temp Pulse Pulse Resp BP BP Pulse Ox 07/28/20 09:24 125/79 07/28/20 09:23 107 H 125/79 07/28/20 07:30 97.6 F 107 H 17 125/79 92 L 07/28/20 00:00 208.2 F H 100 17 128/83 92 L Consult PN Assessment/Plan POD#: 1 (Left knee) Procedures: Procedures ASSAY OF PROTEIN SERUM (04/02/18) ASSAY OF PSA TOTAL (06/08/20) ASSAY OF TOTAL TESTOSTERONE (06/08/20) ASSAY THYROID STIM HORMONE (04/22/20) BONE IMAGING WHOLE BODY (03/14/19) COLONOSCOPY AND BIOPSY (05/09/19) COLONOSCOPY W/LESION REMOVAL (05/09/19) COMPLETE CBC W/AUTO DIFF WBC (07/14/20) COMPREHEN METABOLIC PANEL (04/22/20) CT ABD & PELVIS W/O CONTRAST (05/18/19) DESIGN MLC DEVICE FOR IMRT (06/21/19) ELECTROCARDIOGRAM TRACING (07/14/20) EMERGENCY DEPT VISIT (05/18/19) GLYCOSYLATED HEMOGLOBIN TEST (07/14/20) HEMATOCRIT (05/22/19) HEMOGLOBIN (05/22/19) HEPATIC FUNCTION PANEL (07/14/20) HYDRATION IV INFUSION INIT (05/18/19) LIPID PANEL (04/22/20) METABOLIC PANEL TOTAL CA (07/14/20) NTSTY MODUL RAD TX DLVR SMPL (07/22/19) OFFICE/OUTPATIENT VISIT EST (07/14/20) OFFICE/OUTPATIENT VISIT EST (07/14/20) OFFICE/OUTPATIENT VISIT EST (06/08/20) OFFICE/OUTPATIENT VISIT EST (04/22/20) OFFICE/OUTPATIENT VISIT EST (02/10/20) OFFICE/OUTPATIENT VISIT EST (06/18/19) OFFICE/OUTPATIENT VISIT EST (05/22/19) OFFICE/OUTPATIENT VISIT EST (04/29/19) OFFICE/OUTPATIENT VISIT EST (04/02/18) OFFICE/OUTPATIENT VISIT NEW (05/07/20) OFFICE/OUTPATIENT VISIT NEW (04/29/19) PROTEIN E-PHORESIS SERUM (04/02/18) PROTHROMBIN TIME (07/14/20) RADIATION PHYSICS CONSULT (07/22/19) RADIATION THERAPY DOSE PLAN (06/21/19) RADIATION TREATMENT AID(S) (04/29/19) RADIOTHERAPY DOSE PLAN IMRT (05/24/19) ROUTINE VENIPUNCTURE (07/14/20) TISSUE EXAM BY PATHOLOGIST (02/20/19) UR ALBUMIN SEMIQUANTITATIVE (08/11/16) URINALYSIS AUTO W/O SCOPE (05/18/19) URINALYSIS AUTO W/SCOPE (07/14/20) US TRANSRECTAL (08/25/16) X-RAY EXAM CHEST 2 VIEWS (07/14/20) X-RAY EXAM OF KNEE 1 OR 2 (05/07/20) X-RAY EXAM OF KNEE 3 (04/22/20) (1) S/P total knee arthroplasty SNOMED Code(s): 8752477083819, 262252154, 4954407291716 Code(s): Z96.659 - PRESENCE OF UNSPECIFIED ARTIFICIAL KNEE JOINT Current Visit: Yes Qualifiers: Laterality: left Qualified Code(s): Z96.652 - Presence of left artificial knee joint (2) Paroxysmal atrial fibrillation SNOMED Code(s): 488335891 Code(s): I48.0 - PAROXYSMAL ATRIAL FIBRILLATION Current Visit: Yes (3) Diabetes type 2, controlled SNOMED Code(s): 86020797, 967202376 Code(s): E11.9 - TYPE 2 DIABETES MELLITUS WITHOUT COMPLICATIONS Current Visit: Yes (4) Hypothyroidism SNOMED Code(s): 47220910 Code(s): E03.9 - HYPOTHYROIDISM, UNSPECIFIED Current Visit: Yes (5) Rheumatoid arthritis SNOMED Code(s): 09292299 Code(s): M06.9 - RHEUMATOID ARTHRITIS, UNSPECIFIED Current Visit: Yes (6) History of prostate cancer SNOMED Code(s): 576949363 Code(s): Z85.46 - PERSONAL HISTORY OF MALIGNANT NEOPLASM OF PROSTATE Priority: Medium Current Visit: No (7) Hypertension SNOMED Code(s): 65088908 Code(s): I10 - ESSENTIAL (PRIMARY) HYPERTENSION Priority: High Current Visit: No Qualifiers: Problem List Initiated/Reviewed/Updated: Yes My Orders Last 24 Hours: My Active Orders 07/27/20 15:26 Blood Glucose Check, Bedside [RC] TIDMEALS Dextrose 50% in Water 50 ml IV ASDIRECTED PRN Glucagon,Human Recombinant [GlucaGen] 1 mg IM ASDIRECTED PRN 07/27/20 17:00 Insulin Aspart [NovoLOG] See Protocol SUBCUT TIDAC 07/27/20 21:00 Rosuvastatin [Crestor] 20 mg PO BEDTIME 07/28/20 07:30 Levothyroxine [Synthroid] 200 mcg PO ACBREAKFAST 07/28/20 09:00 Diltiazem [Cardizem CD] 240 mg PO DAILY lisinopriL [Prinivil] 10 mg PO DAILY Plan: This 69-year-old male admitted with left TKA with Dr. Pineda. Hospital service consulted for medical management of comorbidities 1. Left TKA -Orders per orthopedics -Aspirin for VTE prophylaxis 2. DM type II: -Monitor BMP daily for renal function -NovoLog sliding scale insulin -Check blood sugars 3 times daily AC -Hold Metformin during hospitalization counseled on restarting normally once discharged home 3. Atrial fibrillation/HTN/HLD -Continue diltiazem as well as aspirin for atrial fibrillation -Monitor blood pressure -Continue statin -Monitor potassium and magnesium daily and replace to keep potassium greater than 4 as well as mag greater than 2 secondary to atrial fibrillation VTE prophylaxis: ASA per orthopedics as well as early ambulation CODE STATUS: Full code
[2020-07-28] MEDS ORDERED: LORazepam 2 MG/ML SDV IVPUSH PRN (13:45)
[2020-07-28] MEDS: Rosuvastatin 10 MG Tab PO SCH (20:32)
[2020-07-28] MEDS ORDERED: Folic Acid 1 MG Tab PO SCH (21:00)
[2020-07-28] MEDS ORDERED: Thiamine 100 MG Tab PO SCH (21:00)
[2020-07-29] MEDS: Levothyroxine 100 MCG Tab PO SCH (07:03)
[2020-07-29] MEDS: Aspirin 325 MG Tab PO SCH (08:42)
[2020-07-29] MEDS: Diltiazem 120 MG Cap.CD PO SCH (08:42)
[2020-07-29] MEDS: Famotidine 20 MG Tab PO SCH (08:42)
[2020-07-29] MEDS: Ibuprofen 800 MG Tab PO SCH ×2 (08:43→17:17)
[2020-07-29] MEDS: Lisinopril 10 MG Tab PO SCH (08:43)
[2020-07-29] MEDS: Insulin Aspart 100 Units/ML 3 ML Pen SUBCUT SCH ×2 (08:44→12:32)
[2020-07-29] MEDS: Polyethylene Glycol 3350 Powder 17 GM Packet PO SCH (08:44)
--- NOTE | 2020-07-30 14:34 | PCM.DCSUM1 ---
Discharge Summary - Hospital Course Free Text/Narrative:: document #[id number] - Discharge Data Discharge Date: 07/29/20 Discharge Disposition: Home, Self-Care 01 Condition: Good - Referral to Home Health Primary Care Physician: Xiang Campos MD - Patient Summary/Data Operative Procedure(s) Performed: Left total knee replacement with [employer] knee system Consults: Consultations 07/27/20 14:13 Consult to Physician [CONS] Routine 07/27/20 14:14 PT Evaluation and Treatment [CONS] Routine - Patient Instructions Diet: Usual Diet as Tolerated Activity: Apply Ice (Use Sitrion Care ice anytime resting to minimize swelling and pain.), Elevate Extremity (Place pillow under your heel or calf when elevating. Please do NOT put pillow under your knee), Full Weight Bearing, No Strenuous Activities Driving: Do Not Drive Showering/Bathing: May Shower, No Tub Bathing/Swimming Showering/Bathing, Other: when showering, you do not need to cover the AquaCell bandage Notify Provider of: Fever, Increased Pain, Swelling and Redness, Drainage Other/Special Instructions: compression stockings on every morning, remove at bedtime. DO NOT RESUME METHOTREXATE. This will be held until your incision is well healed. This will be assessed at your 2 week appointment at the clinic. - Discharge Plan *PRESCRIPTION DRUG MONITORING PROGRAM REVIEWED*: Not Applicable *COPY OF PRESCRIPTION DRUG MONITORING REPORT IN PATIENT RADHA: Not Applicable Prescriptions/Med Rec: Aspirin 325 mg PO DAILY #90 tablet cefaDROXiL [Cefadroxil] 500 mg PO BID #14 capsule Docusate Sodium [Colace] 100 mg PO BID PRN #1 bottle PRN Reason: Constipation polyethylene glycoL 3350 [MiraLAX] 17 gm PO DAILY PRN #1 bottle PRN Reason: Constipation Ibuprofen [Motrin] 800 mg PO Q8H #90 tablet traMADol [Ultram] 50 - 100 mg PO Q6H PRN #30 tablet PRN Reason: Pain Home Medications: Home Meds Folic Acid 1 mg PO DAILY 05/06/19 [History] Glucosam/Chond/Collagen/Hyalur [Glucosamine Chondroitin] 2 tab PO DAILY 05/06/19 [History] Levothyroxine Sodium [Synthroid] 200 mcg PO DAILY 05/06/19 [History] Lisinopril 10 mg PO DAILY 05/06/19 [History] Multivit-Min/FA/Lycopen/Lutein [Centrum Silver Men Tablet] 1 tab PO DAILY 05/06/19 [History] Rosuvastatin Calcium 20 mg PO BEDTIME 05/06/19 [History] dilTIAZem HCL [Diltiazem 24Hr ER (Xr)] 240 mg PO DAILY 05/06/19 [History] Calcium Carbonate [Tums] 1 tab PO ASDIRECTED PRN 07/21/20 [History] Cholecalciferol (Vitamin D3) [Vitamin D3] 1 tab PO DAILY 07/21/20 [History] metFORMIN HCl [Metformin HCl] 500 mg PO BIDMEALS 07/28/20 [History] sulfaSALAzine [sulfaSALAzine DR] 500 mg PO BID 07/28/20 [History] Aspirin 325 mg PO DAILY #90 tablet 07/29/20 [Rx] Docusate Sodium [Colace] 100 mg PO BID PRN #1 bottle 07/29/20 [Rx] Folic Acid 1 mg PO BEDTIME tablet 07/29/20 [Rx] Ibuprofen [Motrin] 800 mg PO Q8H #90 tablet 07/29/20 [Rx] Thiamine [Vitamin B-1] 100 mg PO BEDTIME tablet 07/29/20 [Rx] cefaDROXiL [Cefadroxil] 500 mg PO BID #14 capsule 07/29/20 [Rx] polyethylene glycoL 3350 [MiraLAX] 17 gm PO DAILY PRN #1 bottle 07/29/20 [Rx] traMADol [Ultram] 50 - 100 mg PO Q6H PRN #30 tablet 07/29/20 [Rx] Patient Handouts: Ibuprofen tablets and capsules, Tramadol tablets, Total Knee Replacement, Care After, [id number], Aspirin and Your Heart, Cefadroxil tablets or capsules, How to Use a Walker, Docusate capsules, Polyethylene Glycol powder Referrals: Mine Sepulveda NP [Nurse Practitioner] - 08/11/20 10:20 am - Discharge Summary/Plan Comment DC Time >30 min.: No - Patient Data Vitals - Most Recent: Last Vital Signs Temp 36.6 C 07/29/20 11:36 Pulse 100 07/29/20 11:36 Resp 18 07/29/20 11:36 BP 133/75 07/29/20 11:36 Pulse Ox 95 07/29/20 11:36 Weight - Most Recent: 111.13 kg Med Orders - Current: Current Medications Discontinued Medications Al Hydroxide/Mg Hydroxide (Mag-Al Plus) 30 ml PO Q4H PRN PRN Reason: Indigestion Aspirin (Aspirin) 325 mg PO DAILY [facility] Last Admin: 07/29/20 08:42 Dose: 325 mg Documented by: Bisacodyl (Dulcolax) 10 mg RECTAL DAILY PRN PRN Reason: Constipation Cefazolin Sodium/Dextrose (Ancef) Confirm Administered Dose 2 gm IV .STK-MED ONE Stop: 07/27/20 11:28 Dextrose/Water (Dextrose 50% In Water) 50 ml IV ASDIRECTED PRN PRN Reason: Hypoglycemia Diltiazem HCl (Cardizem Cd) 240 mg PO DAILY [facility] Last Admin: 07/29/20 08:42 Dose: 240 mg Documented by: Diphenhydramine HCl (Benadryl) 25 - 50 mg PO Q6H PRN PRN Reason: Itching Docusate Sodium (Colace) 100 mg PO BID PRN PRN Reason: Constipation Ephedrine Sulfate (Ephedrine Sulfate) Confirm Administered Dose 50 mg .ROUTE .STK-MED ONE Stop: 07/27/20 12:16 Famotidine (Pepcid) 40 mg IVPUSH ONARRIVE [facility] Famotidine (Pepcid) 40 mg IVPUSH ONARRIVE [facility] Last Admin: 07/27/20 10:13 Dose: 40 mg Documented by: Famotidine (Pepcid) 40 mg PO DAILY [facility] Last Admin: 07/29/20 08:42 Dose: 40 mg Documented by: Fentanyl (Sublimaze) Confirm Administered Dose 100 mcg .ROUTE .STK-MED ONE Stop: 07/27/20 09:14 Folic Acid (Folic Acid) 1 mg PO BEDTIME [facility] Last Admin: 07/28/20 20:33 Dose: 1 mg Documented by: Glucagon (Glucagen) 1 mg IM ASDIRECTED PRN PRN Reason: Hypoglycemia Tranexamic Acid 1,000 mg/ (Sodium Chloride) 110 mls @ 600 mls/hr IV ASDIRECTED ONE Stop: 07/24/20 11:15 Ropivacaine 49.25 ml/Ketorolac Tromethamine 30 mg/Epinephrine HCl 0.5 mg/Clonidine HCl 80 mcg/ Sodium Chloride 75 mls @ 50 mls/sec INJECT ASDIRECTED [facility] Cefazolin Sodium/Dextrose 2 gm (/ Premix) 50 mls @ 100 mls/hr IV ONCALL [facility] Last Admin: 07/28/20 02:23 Dose: 100 mls/hr Documented by: Lactated Ringer's (Ringers, Lactated) 1,000 mls @ 100 mls/hr IV ASDIRECTED [facility] Last Admin: 07/28/20 02:26 Dose: 100 mls/hr Documented by: Bupivacaine HCl/Epinephrine Bitart (Sensorc Mpf 0.25%-Epi 1:[id number]) Confirm Administered Dose 30 mls @ as directed .ROUTE .STK-MED ONE Stop: 07/27/20 14:25 Cefazolin Sodium/Dextrose 2 gm (/ Premix) 50 mls @ 100 mls/hr IV Q8H [facility] Stop: 07/28/20 03:29 Last Admin: 07/28/20 05:49 Dose: Not Given Documented by: Ibuprofen (Motrin) 800 mg PO Q8H [facility] Last Admin: 07/29/20 17:17 Dose: Not Given Documented by: [facility]ulin Asp[facility] (Novolog) [facility] Protocol Last Admin: 07/29/20 12:32 Dose: Not Given Documented by: Ketorolac Tromethamine (Toradol) 15 mg IVPUSH Q6H [facility] Stop: 07/28/20 05:00 Last Admin: 07/28/20 02:03 Dose: 15 mg Documented by: Levothyroxine Sodium (Synthroid) 200 mcg PO ACBREAKFAST [facility] Last Admin: 07/29/20 07:03 Dose: 200 mcg Documented by: Lidocaine (Xylocaine-Mpf 2%) Confirm Administered Dose 5 ml .ROUTE .STK-MED ONE Stop: 07/27/20 14:26 Lidocaine HCl (Xylocaine-Mpf 1%) Confirm Administered Dose 5 ml .ROUTE .STK-MED ONE Stop: 07/27/20 09:13 Lisinopril (Prinivil) 10 mg PO DAILY [facility] Last Admin: 07/29/20 08:43 Dose: 10 mg Documented by: Lorazepam (Ativan) 0 mg IVPUSH Q4H PRN; Protocol PRN Reason: CIWAA Midazolam HCl (Versed 1 Mg/Ml) Confirm Administered Dose 2 mg .ROUTE .STK-MED ONE Stop: 07/27/20 09:14 Morphine Sulfate (Morphine) 1 - 2 mg IVPUSH Q3H PRN PRN Reason: Pain Last Admin: 07/28/20 09:35 Dose: 2 mg Documented by: Ondansetron HCl (Zofran) Confirm Administered Dose 4 mg .ROUTE .STK-MED ONE Stop: 07/27/20 09:13 Ondansetron HCl (Zofran) 4 mg IVPUSH Q6H PRN PRN Reason: Nausea/Vomiting Oxycodone HCl (Oxycodone) 5 - 10 mg PO Q4H PRN PRN Reason: Pain Last Admin: 07/28/20 18:56 Dose: 10 mg Documented by: Polyethylene Glycol (Miralax) 17 gm PO DAILY [facility] Last Admin: 07/29/20 08:44 Dose: 17 gm Documented by: Propofol (Diprivan 20 Ml) Confirm Administered Dose 600 mg .ROUTE .STK-MED ONE Stop: 07/27/20 09:14 Propofol (Diprivan 20 Ml) Confirm Administered Dose 200 mg .ROUTE .STK-MED ONE Stop: 07/27/20 12:36 Propofol (Diprivan 20 Ml) Confirm Administered Dose 400 mg .ROUTE .STK-MED ONE Stop: 07/27/20 13:02 Rosuvastatin Calcium (Crestor) 20 mg PO BEDTIME [facility] Last Admin: 07/28/20 20:32 Dose: 20 mg Documented by: Scopolamine (Transderm-Scop) 1.5 mg TRDERM ONARRIVE [facility] Last Admin: 07/27/20 10:05 Dose: 1.5 mg Documented by: Scopolamine (Transderm-Scop) 1.5 mg TRDERM ONARRIVE [facility] Sodium Chloride (Saline Flush) 10 ml FLUSH ASDIRECTED PRN PRN Reason: Keep Vein Open Sodium Chloride (Saline Flush) 2.5 ml FLUSH ASDIRECTED PRN PRN Reason: Keep Vein Open Thiamine HCl (Vitamin B-1) 100 mg PO BEDTIME [facility] Last Admin: 07/28/20 20:36 Dose: 100 mg Documented by: Tramadol HCl (Ultram) 50 - 100 mg PO Q6H PRN PRN Reason: Pain Last Admin: 07/27/20 15:39 Dose: 50 mg Documented by:
--- NOTE | 2020-07-31 08:19 | DISCH ---
DATE OF DISCHARGE: 07/29/2020 PRIMARY CARE PHYSICIAN: Xiang Campos M.D. 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 OTHER MEDICAL DIAGNOSES: 1. History of atrial fibrillation, on diltiazem with no recent episodes. 2. Hypertension. 3. Diabetes mellitus type 2 with recent A1c 6.6%. 4. Rheumatoid arthritis with methotrexate use. DISCHARGE MEDICAL DIAGNOSES: 1. Status post left total knee replacement. 2. Severe synovitis secondary to rheumatoid arthritis. 3. History of atrial fibrillation, on diltiazem with no recent episodes. 4. Hypertension. 5. Diabetes mellitus type 2 with recent A1c 6.6%. 6. Rheumatoid arthritis with methotrexate use. HISTORY OF PRESENT ILLNESS: This is a 69-year-old male with rheumatoid arthritis who failed conservative treatment for left knee pain, underwent left total knee replacement 07/27/[address] Fercho Pineda. No known surgical complications. He was admitted to [facility] for postop care and physical therapy. HOSPITAL COURSE: Hospitalist services were consulted for medical management. Postoperatively, Slade did well. POD #1, he had not been up ambulating with therapy. Vital signs stable/afebrile. During hospital course, tolerated food/fluids well with no acute nausea or vomiting. Pain was controlled with oxycodone and IV morphine along with 50 mg Toradol the first 24 hours. POD #1, did have episodes of confusion. Hospitalist Services placed him on alcohol withdrawal precautions. Suspect this was also secondary to narcotic pain medications. POD #1, surgical dressing had no acute drainage. Dressings were removed and Aquacel bandage was applied. Diligent use of Polar ice. He had moderate amount of soft tissue swelling. Prophylactic antibiotic: Ancef 2 g. DVT prophylaxis: Aspirin 325 mg daily, initiated day of surgery, bilateral SCDs, and compression stockings. Blood work: Hemoglobin 13.1, then 10.8 POD #2. PT was initiated in the hospital. He progressively did well with increased ambulation with staff and walker. Julian ready to be discharged home with his POD #2. DISCHARGE MEDICATIONS: 1. Aspirin 325 mg daily x3 months. 2. Cefadroxil 500 mg 1 tablet b.i.d. x7 days, his antibiotic prophylaxis. 3. Vitamin D3 daily. 4. Diltiazem 240 mg extended release capsule daily. 5. Colace 100 mg b.i.d. p.r.n. 6. Folic acid 1 mg daily. 7. Glucosamine-chondroitin 2 tablets daily. 8. Ibuprofen 800 mg q.8 hours. 9. Synthroid 200 mcg daily. 10.Lisinopril 10 mg daily. 11.Metformin 500 mg b.i.d. 12.Centrum Silver 1 tablet daily. 13.MiraLAX 17 g daily. 14.Rosuvastatin 20 mg at bedtime. 15.Thiamine 100 mg at bedtime. 16.Tramadol 50 mg 1 to 2 tabs q.6h hours p.r.n. 17.He was directed to hold his methotrexate until incision is examined at followup appointment. DISCHARGE ORDERS: Followup appointment scheduled at orthopedic clinic in 1 week with myself. Outpatient physical therapy set up at [facility]. He is discharged to home with his . Prescription for walker was written. Informed if he has questions or acute concerns, to contact the orthopedic clinic. CINDI / JESSEE /[id number]
== END 2020-07-29 16:00 | disposition home or self-care (01) ==
LOC: MW.MS 09:15 → MW.SDS 09:15 → MW.MS 09:16 → EDSTATUS 10:30
PROVIDERS: ADMIT Orthopaedic Surgery; ATTEND Orthopaedic Surgery
DX: M17.5 Other unilateral secondary osteoarthritis of knee (principal); M06.862 Other specified rheumatoid arthritis, left knee; M65.862 Other synovitis and tenosynovitis, left lower leg; I10 Essential (primary) hypertension; E11.9 Type 2 diabetes mellitus without complications; E78.00 Pure hypercholesterolemia, unspecified; I48.0 Paroxysmal atrial fibrillation; E03.9 Hypothyroidism, unspecified; E78.5 Hyperlipidemia, unspecified; Z79.82 Long term (current) use of aspirin; Z79.899 Other long term (current) drug therapy; Z87.891 Personal history of nicotine dependence; Z85.46 Personal history of malignant neoplasm of prostate
CPT/HCPCS: 27447; 36415; 73560; 80048; 82962; 83735; 85014; 85018; 85025; 86850; 86900; 86901; A9270; G0378; J0171; J0690; J0735; J1815; J1885; J2001; J2250; J2270; J2704; J2795; J3010; J3490; J7120; 01402; 64450; J2405

== ENCOUNTER 2021-09-13 07:57 | Inpatient (IN) | payer MEDICARE ==
[2021-09-13] MEDS ORDERED: Sodium Chloride 0.9% 1,000 ML IV ONE (08:07)
[2021-09-13] MEDS ORDERED: Sodium Chloride 0.9% 10 ML Syringe FLUSH PRN ×2 (08:07→13:18)
[2021-09-13] MEDS ORDERED: Sodium Chloride 0.9% 2.5 ML Syringe FLUSH PRN ×2 (08:07→13:18)
[2021-09-13 09:33] LABS: BLOOD UREA NITROGEN,BUN 21 mg/dL (7.0-18.0); CHLORIDE,CL 95 mmol/L (98-107); GLUCOSE RANDOM 174 mg/dL (74-106); POTASSIUM,K 3.5 mmol/L (3.5-5.1); SODIUM,NA 134 mmol/L (136-148)
[2021-09-13] MEDS ORDERED: cefTRIAXone 2 GM in Premix Bag 1 BAG IV ONE (09:34)
[2021-09-13 09:40] LABS: CARBON DIOXIDE,CO2 27.8 mmol/L (21.0-32.0)
[2021-09-13] MEDS ORDERED: REMDESIVIR 200 MG in Sodium Chloride 0.9% 250 ML IV ONE (12:20)
[2021-09-13] MEDS ORDERED: Ondansetron 4 MG/2 ML SDV IVPUSH PRN (13:18)
[2021-09-13] MEDS ORDERED: Enoxaparin 40 MG/0.4 ML Syringe SUBCUT SCH (13:30)
[2021-09-13] MEDS: Dexamethasone 4 MG Tab PO SCH (13:51)
[2021-09-13] MEDS ORDERED: Glucagon,Human Recombinant 1 MG Vial IM PRN (14:43)
[2021-09-13] MEDS ORDERED: 50% Dextrose in Water 50 ML Syringe IVPUSH PRN (14:43)
[2021-09-13] MEDS: Pantoprazole 40 MG in Sodium Chloride 0.9% 10 ML IVPUSH SCH (15:09)
[2021-09-13] MEDS ORDERED: Calcium Carbonate 500 MG Tab.Chew PO PRN (16:07)
[2021-09-13] MEDS: Insulin Aspart 100 Units/ML 3 ML Pen SUBCUT SCH (16:22)
[2021-09-13] MEDS: Rosuvastatin 10 MG Tab PO SCH (20:01)
[2021-09-13] MEDS: Benzonatate 100 MG Cap PO PRN (23:59)
[2021-09-14] MEDS: Pantoprazole 40 MG in Sodium Chloride 0.9% 10 ML IVPUSH SCH ×2 (01:47→14:24)
[2021-09-14] MEDS: Levothyroxine 100 MCG Tab PO SCH (06:31)
[2021-09-14] MEDS ORDERED: Calcium Carbonate 500 MG Tab.Chew PO PRN (07:00)
[2021-09-14] MEDS ORDERED: Pantoprazole 40 MG Tab.CR PO SCH (07:30)
[2021-09-14] MEDS: Insulin Aspart 100 Units/ML 3 ML Pen SUBCUT SCH ×3 (07:48→16:39)
[2021-09-14] MEDS: Lisinopril 10 MG Tab PO SCH (08:03)
[2021-09-14] MEDS: Dexamethasone 4 MG Tab PO SCH (08:03)
[2021-09-14] MEDS: Diltiazem 120 MG Cap.CD PO SCH (08:04)
[2021-09-14] MEDS: Folic Acid 1 MG Tab PO SCH (08:05)
[2021-09-14] MEDS: REMDESIVIR 100 MG in Sodium Chloride 0.9% 100 ML IV SCH (08:07)
[2021-09-14 09:14] LABS: BLOOD UREA NITROGEN,BUN 15 mg/dL (7.0-18.0); CARBON DIOXIDE,CO2 26.8 mmol/L (21.0-32.0); CHLORIDE,CL 99 mmol/L (98-107); GLUCOSE RANDOM 146 mg/dL (74-106); POTASSIUM,K 3.5 mmol/L (3.5-5.1); SODIUM,NA 137 mmol/L (136-148)
[2021-09-14] MEDS: Albuterol/Ipratropium 4 GM Inhalation Spray INH PRN ×2 (09:24→14:23)
[2021-09-14] MEDS: Rosuvastatin 10 MG Tab PO SCH (20:52)
[2021-09-14] MEDS: Heparin Sodium 5,000 Units/ML Vial SUBCUT SCH (20:52)
[2021-09-14] MEDS: Acetaminophen 325 MG Tab PO PRN (21:25)
[2021-09-15] MEDS: Albuterol/Ipratropium 4 GM Inhalation Spray INH PRN ×3 (01:36→21:26)
[2021-09-15] MEDS: Levothyroxine 100 MCG Tab PO SCH (07:00)
[2021-09-15] MEDS: Pantoprazole 40 MG in Sodium Chloride 0.9% 10 ML IVPUSH SCH ×2 (07:00→17:20)
[2021-09-15] MEDS: Insulin Aspart 100 Units/ML 3 ML Pen SUBCUT SCH ×3 (07:45→17:40)
[2021-09-15 09:20] LABS: BLOOD UREA NITROGEN,BUN 16 mg/dL (7.0-18.0); CARBON DIOXIDE,CO2 24.5 mmol/L (21.0-32.0); CHLORIDE,CL 101 mmol/L (98-107); GLUCOSE RANDOM 144 mg/dL (74-106); POTASSIUM,K 3.3 mmol/L (3.5-5.1); SODIUM,NA 137 mmol/L (136-148)
[2021-09-15] MEDS: REMDESIVIR 100 MG in Sodium Chloride 0.9% 100 ML IV SCH (09:57)
[2021-09-15] MEDS: Heparin Sodium 5,000 Units/ML Vial SUBCUT SCH ×2 (09:58→20:42)
[2021-09-15] MEDS: Dexamethasone 4 MG Tab PO SCH (09:58)
[2021-09-15] MEDS: Lisinopril 10 MG Tab PO SCH (09:58)
[2021-09-15] MEDS: Diltiazem 120 MG Cap.CD PO SCH (09:59)
[2021-09-15] MEDS: Folic Acid 1 MG Tab PO SCH (09:59)
[2021-09-15] MEDS: Rosuvastatin 10 MG Tab PO SCH (20:42)
[2021-09-16] MEDS: Albuterol/Ipratropium 4 GM Inhalation Spray INH PRN ×3 (04:00→18:34)
[2021-09-16] MEDS: Pantoprazole 40 MG in Sodium Chloride 0.9% 10 ML IVPUSH SCH ×2 (06:55→18:06)
[2021-09-16] MEDS: Levothyroxine 100 MCG Tab PO SCH (06:55)
[2021-09-16] MEDS: Insulin Aspart 100 Units/ML 3 ML Pen SUBCUT SCH ×4 (07:31→18:05)
[2021-09-16 07:55] LABS: BLOOD UREA NITROGEN,BUN 14 mg/dL (7.0-18.0); CARBON DIOXIDE,CO2 23.5 mmol/L (21.0-32.0); CHLORIDE,CL 103 mmol/L (98-107); GLUCOSE RANDOM 144 mg/dL (74-106); POTASSIUM,K 3.6 mmol/L (3.5-5.1); SODIUM,NA 139 mmol/L (136-148)
[2021-09-16] MEDS: Heparin Sodium 5,000 Units/ML Vial SUBCUT SCH ×2 (09:00→20:47)
[2021-09-16] MEDS: Dexamethasone 4 MG Tab PO SCH (09:01)
[2021-09-16] MEDS: REMDESIVIR 100 MG in Sodium Chloride 0.9% 100 ML IV SCH (09:01)
[2021-09-16] MEDS: Lisinopril 10 MG Tab PO SCH (09:01)
[2021-09-16] MEDS: Folic Acid 1 MG Tab PO SCH (09:02)
[2021-09-16] MEDS: Diltiazem 120 MG Cap.CD PO SCH (09:02)
[2021-09-16] MEDS ORDERED: Furosemide 40 MG/4 ML VIAL IVPUSH ONE (09:54)
[2021-09-16] MEDS: Rosuvastatin 10 MG Tab PO SCH (20:48)
[2021-09-17] MEDS: Albuterol/Ipratropium 4 GM Inhalation Spray INH PRN ×2 (03:25→09:00)
[2021-09-17] MEDS: Levothyroxine 100 MCG Tab PO SCH (06:39)
[2021-09-17] MEDS: Pantoprazole 40 MG in Sodium Chloride 0.9% 10 ML IVPUSH SCH ×2 (06:39→17:24)
[2021-09-17] MEDS: Insulin Aspart 100 Units/ML 3 ML Pen SUBCUT SCH ×3 (08:10→17:24)
[2021-09-17] MEDS: REMDESIVIR 100 MG in Sodium Chloride 0.9% 100 ML IV SCH (08:28)
[2021-09-17] MEDS: Diltiazem 120 MG Cap.CD PO SCH (08:28)
[2021-09-17] MEDS: Heparin Sodium 5,000 Units/ML Vial SUBCUT SCH (08:28)
[2021-09-17] MEDS: Folic Acid 1 MG Tab PO SCH (08:29)
[2021-09-17] MEDS: Lisinopril 10 MG Tab PO SCH (08:29)
[2021-09-17] MEDS: Dexamethasone 4 MG Tab PO SCH (08:29)
[2021-09-17 09:04] LABS: BLOOD UREA NITROGEN,BUN 15 mg/dL (7.0-18.0); CARBON DIOXIDE,CO2 24.6 mmol/L (21.0-32.0); CHLORIDE,CL 102 mmol/L (98-107); GLUCOSE RANDOM 132 mg/dL (74-106); POTASSIUM,K 3.4 mmol/L (3.5-5.1); SODIUM,NA 138 mmol/L (136-148)
[2021-09-17] MEDS ORDERED: Furosemide 40 MG/4 ML VIAL IVPUSH ONE (11:18)
[2021-09-17] MEDS ORDERED: VANCOmycin 1.5 GM/300 ML 1.5 GM in Premix Bag 1 BAG IV SCH (11:45)
[2021-09-17] MEDS: VANCOmycin 1.5 GM/300 ML 1.5 GM in Premix Bag 1 BAG IV SCH ×2 (12:20→20:11)
[2021-09-17] MEDS: Enoxaparin 40 MG/0.4 ML Syringe SUBCUT SCH (12:30)
[2021-09-17] MEDS: Docusate Sodium 100 MG Cap PO SCH ×3 (12:52→20:36)
[2021-09-17] MEDS: Levofloxacin/Dextrose 5%-Water 750 MG in Premix Bag 1 BAG IV SCH (14:17)
[2021-09-17] MEDS: Rosuvastatin 10 MG Tab PO SCH (20:11)
[2021-09-18] MEDS: Acetaminophen 325 MG Tab PO PRN ×2 (02:22→16:10)
[2021-09-18] MEDS: VANCOmycin 1.5 GM/300 ML 1.5 GM in Premix Bag 1 BAG IV SCH ×3 (03:19→19:53)
[2021-09-18] MEDS: Pantoprazole 40 MG in Sodium Chloride 0.9% 10 ML IVPUSH SCH (06:36)
[2021-09-18] MEDS: Levothyroxine 100 MCG Tab PO SCH (06:37)
[2021-09-18] MEDS: Insulin Aspart 100 Units/ML 3 ML Pen SUBCUT SCH ×3 (06:57→17:37)
[2021-09-18 08:08] LABS: BLOOD UREA NITROGEN,BUN 20 mg/dL (7.0-18.0); CARBON DIOXIDE,CO2 25.2 mmol/L (21.0-32.0); CHLORIDE,CL 100 mmol/L (98-107); GLUCOSE RANDOM 118 mg/dL (74-106); POTASSIUM,K 3.8 mmol/L (3.5-5.1); SODIUM,NA 135 mmol/L (136-148)
[2021-09-18] MEDS: Lisinopril 10 MG Tab PO SCH (08:41)
[2021-09-18] MEDS: Diltiazem 120 MG Cap.CD PO SCH (08:41)
[2021-09-18] MEDS: Docusate Sodium 100 MG Cap PO SCH ×2 (08:41→20:01)
[2021-09-18] MEDS: Folic Acid 1 MG Tab PO SCH (08:41)
[2021-09-18] MEDS: Dexamethasone 4 MG Tab PO SCH (08:41)
[2021-09-18] MEDS: Albuterol/Ipratropium 4 GM Inhalation Spray INH PRN ×2 (10:00→14:10)
[2021-09-18] MEDS: Enoxaparin 40 MG/0.4 ML Syringe SUBCUT SCH (11:54)
[2021-09-18] MEDS: Levofloxacin/Dextrose 5%-Water 750 MG in Premix Bag 1 BAG IV SCH (14:41)
[2021-09-18] MEDS ORDERED: Furosemide 20 MG/2 ML VIAL IVPUSH ONE (19:00)
[2021-09-18] MEDS: Rosuvastatin 10 MG Tab PO SCH (20:00)
[2021-09-19] MEDS: VANCOmycin 1.5 GM/300 ML 1.5 GM in Premix Bag 1 BAG IV SCH ×3 (03:34→20:39)
[2021-09-19] MEDS: Acetaminophen 325 MG Tab PO PRN ×2 (03:46→21:25)
[2021-09-19 06:58] LABS: BLOOD UREA NITROGEN,BUN 21 mg/dL (7.0-18.0); CARBON DIOXIDE,CO2 22.2 mmol/L (21.0-32.0); CHLORIDE,CL 101 mmol/L (98-107); GLUCOSE RANDOM 137 mg/dL (74-106); SODIUM,NA 134 mmol/L (136-148)
[2021-09-19] MEDS: Pantoprazole 40 MG Tab.CR PO SCH (07:50)
[2021-09-19] MEDS: Levothyroxine 100 MCG Tab PO SCH (07:51)
[2021-09-19] MEDS: Insulin Aspart 100 Units/ML 3 ML Pen SUBCUT SCH ×3 (08:20→18:00)
[2021-09-19] MEDS: Docusate Sodium 100 MG Cap PO SCH ×3 (08:35→21:33)
[2021-09-19] MEDS: Lisinopril 10 MG Tab PO SCH (08:36)
[2021-09-19] MEDS: Dexamethasone 4 MG Tab PO SCH (08:36)
[2021-09-19] MEDS: Diltiazem 120 MG Cap.CD PO SCH (08:37)
[2021-09-19] MEDS: Folic Acid 1 MG Tab PO SCH (08:38)
[2021-09-19] MEDS: Albuterol/Ipratropium 4 GM Inhalation Spray INH PRN ×3 (09:00→22:00)
[2021-09-19] MEDS: Enoxaparin 40 MG/0.4 ML Syringe SUBCUT SCH (11:16)
[2021-09-19] MEDS: Sodium Chloride 0.65% Nasal Spray 45 ML Bottle NAS PRN ×2 (11:35→16:00)
[2021-09-19] MEDS: Levofloxacin/Dextrose 5%-Water 750 MG in Premix Bag 1 BAG IV SCH (13:09)
[2021-09-19] MEDS: Rosuvastatin 10 MG Tab PO SCH (20:39)
[2021-09-19] MEDS ORDERED: ALPRAZolam 0.25 MG Tab PO ONE (21:00)
[2021-09-20] MEDS: VANCOmycin 1.5 GM/300 ML 1.5 GM in Premix Bag 1 BAG IV SCH ×3 (04:30→18:55)
[2021-09-20] MEDS: Levothyroxine 100 MCG Tab PO SCH (06:30)
[2021-09-20] MEDS: Pantoprazole 40 MG Tab.CR PO SCH (06:30)
[2021-09-20] MEDS: Albuterol/Ipratropium 4 GM Inhalation Spray INH PRN (08:00)
[2021-09-20] MEDS: Dexamethasone 4 MG Tab PO SCH (08:00)
[2021-09-20] MEDS: Docusate Sodium 100 MG Cap PO SCH ×2 (08:01→20:47)
[2021-09-20] MEDS: Folic Acid 1 MG Tab PO SCH (08:01)
[2021-09-20] MEDS: Lisinopril 10 MG Tab PO SCH (08:01)
[2021-09-20 08:13] LABS: BLOOD UREA NITROGEN,BUN 19 mg/dL (7.0-18.0); CARBON DIOXIDE,CO2 21.9 mmol/L (21.0-32.0); CHLORIDE,CL 103 mmol/L (98-107); GLUCOSE RANDOM 136 mg/dL (74-106); SODIUM,NA 138 mmol/L (136-148)
[2021-09-20] MEDS: Insulin Aspart 100 Units/ML 3 ML Pen SUBCUT SCH ×3 (08:30→18:20)
[2021-09-20] MEDS: Diltiazem 120 MG Cap.CD PO SCH (09:03)
[2021-09-20] MEDS: Furosemide 40 MG/4 ML VIAL IVPUSH ONE ×2 (09:44→10:00)
[2021-09-20] MEDS ORDERED: Furosemide 40 MG/4 ML VIAL IVPUSH ONE (09:57)
[2021-09-20] MEDS: Enoxaparin 40 MG/0.4 ML Syringe SUBCUT SCH (10:49)
[2021-09-20] MEDS: Levofloxacin/Dextrose 5%-Water 750 MG in Premix Bag 1 BAG IV SCH (13:36)
[2021-09-20] MEDS: Acetaminophen 325 MG Tab PO PRN (14:04)
[2021-09-20] MEDS: Rosuvastatin 10 MG Tab PO SCH (20:46)
[2021-09-21] MEDS: VANCOmycin 1.5 GM/300 ML 1.5 GM in Premix Bag 1 BAG IV SCH ×3 (03:55→18:56)
[2021-09-21 07:11] LABS: BLOOD UREA NITROGEN,BUN 28 mg/dL (7.0-18.0); CARBON DIOXIDE,CO2 23.4 mmol/L (21.0-32.0); CHLORIDE,CL 103 mmol/L (98-107); GLUCOSE RANDOM 151 mg/dL (74-106); POTASSIUM,K 4.2 mmol/L (3.5-5.1); SODIUM,NA 135 mmol/L (136-148)
[2021-09-21] MEDS: Levothyroxine 100 MCG Tab PO SCH (07:28)
[2021-09-21] MEDS: Pantoprazole 40 MG Tab.CR PO SCH (07:28)
[2021-09-21] MEDS: Insulin Aspart 100 Units/ML 3 ML Pen SUBCUT SCH ×3 (07:34→17:25)
[2021-09-21] MEDS: Docusate Sodium 100 MG Cap PO SCH ×2 (08:11→20:29)
[2021-09-21] MEDS: Dexamethasone 4 MG Tab PO SCH (08:11)
[2021-09-21] MEDS: Diltiazem 120 MG Cap.CD PO SCH (08:12)
[2021-09-21] MEDS: Folic Acid 1 MG Tab PO SCH (08:12)
[2021-09-21] MEDS: Lisinopril 10 MG Tab PO SCH (08:13)
[2021-09-21] MEDS ORDERED: Furosemide 40 MG/4 ML VIAL IVPUSH ONE (08:41)
[2021-09-21] MEDS: Acetaminophen 325 MG Tab PO PRN ×2 (10:03→19:21)
[2021-09-21] MEDS: Enoxaparin 40 MG/0.4 ML Syringe SUBCUT SCH (11:15)
[2021-09-21] MEDS: Levofloxacin/Dextrose 5%-Water 750 MG in Premix Bag 1 BAG IV SCH (12:59)
[2021-09-21] MEDS: Rosuvastatin 10 MG Tab PO SCH (20:29)
[2021-09-22] MEDS: VANCOmycin 1.5 GM/300 ML 1.5 GM in Premix Bag 1 BAG IV SCH ×3 (03:49→20:32)
[2021-09-22 03:58] LABS: BLOOD UREA NITROGEN,BUN 24 mg/dL (7.0-18.0); CARBON DIOXIDE,CO2 24.7 mmol/L (21.0-32.0); CHLORIDE,CL 100 mmol/L (98-107); GLUCOSE RANDOM 160 mg/dL (74-106); POTASSIUM,K 4.8 mmol/L (3.5-5.1); SODIUM,NA 137 mmol/L (136-148)
[2021-09-22] MEDS: Levothyroxine 100 MCG Tab PO SCH (08:04)
[2021-09-22] MEDS: Pantoprazole 40 MG Tab.CR PO SCH (08:04)
[2021-09-22] MEDS: Insulin Aspart 100 Units/ML 3 ML Pen SUBCUT SCH ×3 (08:24→17:50)
[2021-09-22] MEDS ORDERED: Furosemide 40 MG/4 ML VIAL IVPUSH ONE (08:25)
[2021-09-22] MEDS: Dexamethasone 4 MG Tab PO SCH (08:53)
[2021-09-22] MEDS: Lisinopril 10 MG Tab PO SCH (08:53)
[2021-09-22] MEDS: Diltiazem 120 MG Cap.CD PO SCH (08:54)
[2021-09-22] MEDS: Folic Acid 1 MG Tab PO SCH (08:54)
[2021-09-22] MEDS: Albuterol/Ipratropium 4 GM Inhalation Spray INH PRN ×3 (08:54→18:59)
[2021-09-22] MEDS: Docusate Sodium 100 MG Cap PO SCH ×2 (09:45→20:35)
[2021-09-22] MEDS: Enoxaparin 40 MG/0.4 ML Syringe SUBCUT SCH (10:55)
[2021-09-22] MEDS: Levofloxacin/Dextrose 5%-Water 750 MG in Premix Bag 1 BAG IV SCH (13:28)
[2021-09-22] MEDS: Sodium Chloride 0.65% Nasal Spray 45 ML Bottle NAS PRN (17:00)
[2021-09-22] MEDS: Acetaminophen 325 MG Tab PO PRN (18:59)
[2021-09-22] MEDS: Rosuvastatin 10 MG Tab PO SCH (20:32)
[2021-09-23] MEDS: VANCOmycin 1.5 GM/300 ML 1.5 GM in Premix Bag 1 BAG IV SCH ×3 (03:41→20:29)
[2021-09-23 07:11] LABS: BLOOD UREA NITROGEN,BUN 25 mg/dL (7.0-18.0); CARBON DIOXIDE,CO2 22.1 mmol/L (21.0-32.0); CHLORIDE,CL 103 mmol/L (98-107); GLUCOSE RANDOM 138 mg/dL (74-106); POTASSIUM,K 4.1 mmol/L (3.5-5.1); SODIUM,NA 135 mmol/L (136-148)
[2021-09-23] MEDS: Levothyroxine 100 MCG Tab PO SCH (07:48)
[2021-09-23] MEDS: Pantoprazole 40 MG Tab.CR PO SCH (07:49)
[2021-09-23] MEDS: Insulin Aspart 100 Units/ML 3 ML Pen SUBCUT SCH ×3 (08:18→17:24)
[2021-09-23] MEDS: Diltiazem 120 MG Cap.CD PO SCH (09:07)
[2021-09-23] MEDS: Lisinopril 10 MG Tab PO SCH (09:08)
[2021-09-23] MEDS: Folic Acid 1 MG Tab PO SCH (09:08)
[2021-09-23] MEDS: Docusate Sodium 100 MG Cap PO SCH ×2 (09:08→20:30)
[2021-09-23] MEDS ORDERED: Furosemide 40 MG/4 ML VIAL IVPUSH ONE (10:20)
[2021-09-23] MEDS: Enoxaparin 40 MG/0.4 ML Syringe SUBCUT SCH (11:21)
[2021-09-23] MEDS: Sodium Chloride 0.65% Nasal Spray 45 ML Bottle NAS PRN (12:00)
[2021-09-23] MEDS: Albuterol/Ipratropium 4 GM Inhalation Spray INH PRN ×2 (12:00→20:30)
[2021-09-23] MEDS: Levofloxacin/Dextrose 5%-Water 750 MG in Premix Bag 1 BAG IV SCH (13:36)
[2021-09-23] MEDS: Albuterol/Ipratropium 3.0-0.5 MG/3 ML Neb Soln NEB PRN ×2 (16:50→22:46)
[2021-09-23] MEDS: Rosuvastatin 10 MG Tab PO SCH (20:29)
[2021-09-23] MEDS: Acetaminophen 325 MG Tab PO PRN (21:00)
[2021-09-24 06:45] LABS: BLOOD UREA NITROGEN,BUN 32 mg/dL (7.0-18.0); CARBON DIOXIDE,CO2 27.2 mmol/L (21.0-32.0); CHLORIDE,CL 101 mmol/L (98-107); GLUCOSE RANDOM 131 mg/dL (74-106); POTASSIUM,K 3.9 mmol/L (3.5-5.1); SODIUM,NA 137 mmol/L (136-148)
[2021-09-24] MEDS: Levothyroxine 100 MCG Tab PO SCH (07:17)
[2021-09-24] MEDS: Pantoprazole 40 MG Tab.CR PO SCH (07:18)
[2021-09-24] MEDS: Insulin Aspart 100 Units/ML 3 ML Pen SUBCUT SCH ×3 (07:18→16:21)
[2021-09-24] MEDS: VANCOmycin 1.5 GM/300 ML 1.5 GM in Premix Bag 1 BAG IV SCH ×2 (08:08→20:49)
[2021-09-24] MEDS: Lisinopril 10 MG Tab PO SCH (08:09)
[2021-09-24] MEDS: Folic Acid 1 MG Tab PO SCH (08:09)
[2021-09-24] MEDS: Docusate Sodium 100 MG Cap PO SCH ×2 (08:09→21:17)
[2021-09-24] MEDS: Diltiazem 120 MG Cap.CD PO SCH (08:12)
[2021-09-24] MEDS: Albuterol/Ipratropium 4 GM Inhalation Spray INH PRN ×2 (08:25→16:15)
[2021-09-24] MEDS: Acetaminophen 325 MG Tab PO PRN (10:28)
[2021-09-24] MEDS: Albuterol/Ipratropium 3.0-0.5 MG/3 ML Neb Soln NEB PRN ×2 (10:28→21:18)
[2021-09-24] MEDS: Enoxaparin 40 MG/0.4 ML Syringe SUBCUT SCH (10:35)
[2021-09-24] MEDS ORDERED: Ketorolac 30 MG/ML SDV IVPUSH PRN (11:45)
[2021-09-24] MEDS ORDERED: Furosemide 40 MG/4 ML VIAL IVPUSH ONE (11:45)
[2021-09-24] MEDS: Cefepime 1 GM in Premix Bag 1 BAG IV SCH ×2 (11:55→19:52)
[2021-09-24] MEDS: ALPRAZolam 0.25 MG Tab PO PRN (21:17)
[2021-09-24] MEDS: Rosuvastatin 10 MG Tab PO SCH (21:17)
[2021-09-24] MEDS: Carboxymethylcellulose Sodium 0.5% Ophth Soln 0.4 ML UD Box of 30 EYEBOTH PRN (21:18)
[2021-09-25] MEDS: Cefepime 1 GM in Premix Bag 1 BAG IV SCH ×3 (04:03→20:14)
[2021-09-25] MEDS: Albuterol/Ipratropium 3.0-0.5 MG/3 ML Neb Soln NEB PRN ×2 (04:14→08:16)
[2021-09-25] MEDS: Sodium Chloride 0.65% Nasal Spray 45 ML Bottle NAS PRN (04:20)
[2021-09-25 06:41] LABS: BLOOD UREA NITROGEN,BUN 26 mg/dL (7.0-18.0); CARBON DIOXIDE,CO2 25.8 mmol/L (21.0-32.0); CHLORIDE,CL 103 mmol/L (98-107); GLUCOSE RANDOM 127 mg/dL (74-106); SODIUM,NA 138 mmol/L (136-148)
[2021-09-25] MEDS: Levothyroxine 100 MCG Tab PO SCH (06:43)
[2021-09-25] MEDS: Pantoprazole 40 MG Tab.CR PO SCH (06:43)
[2021-09-25] MEDS: Folic Acid 1 MG Tab PO SCH (08:16)
[2021-09-25] MEDS: Docusate Sodium 100 MG Cap PO SCH ×2 (08:16→21:11)
[2021-09-25] MEDS: Lisinopril 10 MG Tab PO SCH (08:16)
[2021-09-25] MEDS: Diltiazem 120 MG Cap.CD PO SCH (08:17)
[2021-09-25] MEDS: Insulin Aspart 100 Units/ML 3 ML Pen SUBCUT SCH ×3 (09:00→18:00)
[2021-09-25] MEDS: VANCOmycin 1.5 GM/300 ML 1.5 GM in Premix Bag 1 BAG IV SCH ×2 (09:31→21:14)
[2021-09-25] MEDS: Enoxaparin 40 MG/0.4 ML Syringe SUBCUT SCH (11:34)
[2021-09-25] MEDS ORDERED: Furosemide 40 MG/4 ML VIAL IVPUSH ONE (12:03)
[2021-09-25] MEDS: Rosuvastatin 10 MG Tab PO SCH (21:11)
[2021-09-25] MEDS: Carboxymethylcellulose Sodium 0.5% Ophth Soln 0.4 ML UD Box of 30 EYEBOTH PRN (21:13)
[2021-09-25] MEDS: Benzonatate 100 MG Cap PO PRN (22:56)
[2021-09-25] MEDS: ALPRAZolam 0.25 MG Tab PO PRN (22:56)
[2021-09-26] MEDS: Cefepime 1 GM in Premix Bag 1 BAG IV SCH ×3 (03:17→20:23)
[2021-09-26] MEDS: Levothyroxine 100 MCG Tab PO SCH (06:37)
[2021-09-26] MEDS: Pantoprazole 40 MG Tab.CR PO SCH (06:37)
[2021-09-26 07:53] LABS: BLOOD UREA NITROGEN,BUN 20 mg/dL (7.0-18.0); CARBON DIOXIDE,CO2 24.9 mmol/L (21.0-32.0); CHLORIDE,CL 103 mmol/L (98-107); GLUCOSE RANDOM 127 mg/dL (74-106); POTASSIUM,K 3.5 mmol/L (3.5-5.1); SODIUM,NA 137 mmol/L (136-148)
[2021-09-26] MEDS: Insulin Aspart 100 Units/ML 3 ML Pen SUBCUT SCH ×3 (08:14→17:45)
[2021-09-26] MEDS: Diltiazem 120 MG Cap.CD PO SCH (08:51)
[2021-09-26] MEDS: Lisinopril 10 MG Tab PO SCH (08:52)
[2021-09-26] MEDS: Docusate Sodium 100 MG Cap PO SCH ×2 (08:52→20:23)
[2021-09-26] MEDS: VANCOmycin 1.5 GM/300 ML 1.5 GM in Premix Bag 1 BAG IV SCH ×2 (08:52→21:17)
[2021-09-26] MEDS: Folic Acid 1 MG Tab PO SCH (08:53)
[2021-09-26] MEDS: Carboxymethylcellulose Sodium 0.5% Ophth Soln 0.4 ML UD Box of 30 EYEBOTH PRN (09:06)
[2021-09-26] MEDS: Acetaminophen 325 MG Tab PO PRN (09:30)
[2021-09-26] MEDS: Albuterol/Ipratropium 4 GM Inhalation Spray INH PRN (09:31)
[2021-09-26] MEDS: Enoxaparin 40 MG/0.4 ML Syringe SUBCUT SCH (13:23)
[2021-09-26] MEDS: Rosuvastatin 10 MG Tab PO SCH (20:22)
[2021-09-27] MEDS: Cefepime 1 GM in Premix Bag 1 BAG IV SCH ×3 (04:23→21:27)
[2021-09-27] MEDS: Albuterol/Ipratropium 4 GM Inhalation Spray INH PRN (05:02)
[2021-09-27 06:14] LABS: BLOOD UREA NITROGEN,BUN 17 mg/dL (7.0-18.0); CARBON DIOXIDE,CO2 25.1 mmol/L (21.0-32.0); CHLORIDE,CL 104 mmol/L (98-107); GLUCOSE RANDOM 128 mg/dL (74-106); POTASSIUM,K 3.7 mmol/L (3.5-5.1); SODIUM,NA 137 mmol/L (136-148)
[2021-09-27] MEDS: Pantoprazole 40 MG Tab.CR PO SCH (06:53)
[2021-09-27] MEDS: Levothyroxine 100 MCG Tab PO SCH (06:53)
[2021-09-27] MEDS: Insulin Aspart 100 Units/ML 3 ML Pen SUBCUT SCH ×3 (06:55→16:58)
[2021-09-27] MEDS: Diltiazem 120 MG Cap.CD PO SCH (08:40)
[2021-09-27] MEDS: Folic Acid 1 MG Tab PO SCH (08:40)
[2021-09-27] MEDS: Docusate Sodium 100 MG Cap PO SCH ×2 (08:40→21:27)
[2021-09-27] MEDS: Lisinopril 10 MG Tab PO SCH (08:41)
[2021-09-27] MEDS: Enoxaparin 40 MG/0.4 ML Syringe SUBCUT SCH (11:54)
[2021-09-27] MEDS: Sodium Chloride 0.65% Nasal Spray 45 ML Bottle NAS PRN (16:39)
[2021-09-27] MEDS: Rosuvastatin 10 MG Tab PO SCH (21:27)
[2021-09-28] MEDS: Cefepime 1 GM in Premix Bag 1 BAG IV SCH (05:04)
[2021-09-28] MEDS: Levothyroxine 100 MCG Tab PO SCH (06:42)
[2021-09-28] MEDS: Pantoprazole 40 MG Tab.CR PO SCH (06:42)
[2021-09-28 07:23] LABS: BLOOD UREA NITROGEN,BUN 9 mg/dL (7.0-18.0); CARBON DIOXIDE,CO2 26.2 mmol/L (21.0-32.0); CHLORIDE,CL 102 mmol/L (98-107); GLUCOSE RANDOM 130 mg/dL (74-106); POTASSIUM,K 3.5 mmol/L (3.5-5.1); SODIUM,NA 137 mmol/L (136-148)
[2021-09-28] MEDS: Insulin Aspart 100 Units/ML 3 ML Pen SUBCUT SCH ×3 (08:02→17:06)
[2021-09-28] MEDS ORDERED: Furosemide 40 MG/4 ML VIAL IVPUSH ONE (08:49)
[2021-09-28] MEDS ORDERED: Iopamidol 755 MG/ML 500 ML Multipack Bottle IVPUSH STA (09:22)
[2021-09-28] MEDS: Diltiazem 120 MG Cap.CD PO SCH (09:46)
[2021-09-28] MEDS: Docusate Sodium 100 MG Cap PO SCH ×2 (09:46→20:55)
[2021-09-28] MEDS: Folic Acid 1 MG Tab PO SCH (09:46)
[2021-09-28] MEDS: Lisinopril 10 MG Tab PO SCH (09:46)
[2021-09-28] MEDS ORDERED: Cefepime 2 GM in Sodium Chloride 0.9% 50 ML IV SCH (11:00)
[2021-09-28] MEDS: Enoxaparin 100 MG/1 ML Syringe SUBCUT SCH ×2 (11:11→21:15)
[2021-09-28] MEDS: Azithromycin 500 MG in Sodium Chloride 0.9% 250 ML IV SCH (11:11)
[2021-09-28] MEDS ORDERED: Cholecalciferol (Vitamin D3) 25 MCG Tab PO SCH (11:15)
[2021-09-28] MEDS ORDERED: VANCOmycin 1.5 GM/300 ML 1.5 GM in Premix Bag 1 BAG IV SCH (11:30)
[2021-09-28] MEDS: Cefepime 2 GM in Sodium Chloride 0.9% 50 ML IV SCH ×2 (13:12→20:55)
[2021-09-28] MEDS: Cholecalciferol (Vitamin D3) 25 MCG Tab PO SCH (13:24)
[2021-09-28] MEDS ORDERED: Warfarin 10 MG Tab PO SCH (14:00)
[2021-09-28] MEDS: VANCOmycin 1.5 GM/300 ML 1.5 GM in Premix Bag 1 BAG IV SCH (14:19)
[2021-09-28] MEDS: Warfarin Sliding Scale SCH (15:40)
[2021-09-28] MEDS: Albuterol/Ipratropium 4 GM Inhalation Spray INH PRN (17:06)
[2021-09-28] MEDS: methylPREDNISolone Sodium Succinate 40 MG/1 ML SDV IVPUSH SCH (19:40)
[2021-09-28] MEDS: Rosuvastatin 10 MG Tab PO SCH (20:55)
[2021-09-28] MEDS: Albuterol/Ipratropium 3.0-0.5 MG/3 ML Neb Soln NEB PRN (20:55)
[2021-09-29] MEDS: VANCOmycin 1.5 GM/300 ML 1.5 GM in Premix Bag 1 BAG IV SCH ×2 (01:12→13:22)
[2021-09-29] MEDS: Albuterol/Ipratropium 3.0-0.5 MG/3 ML Neb Soln NEB PRN ×5 (01:12→20:13)
[2021-09-29] MEDS: Cefepime 2 GM in Sodium Chloride 0.9% 50 ML IV SCH ×3 (05:01→20:20)
[2021-09-29] MEDS: Levothyroxine 100 MCG Tab PO SCH (06:32)
[2021-09-29] MEDS: Pantoprazole 40 MG Tab.CR PO SCH (06:32)
[2021-09-29 07:12] LABS: BLOOD UREA NITROGEN,BUN 17 mg/dL (7.0-18.0); CARBON DIOXIDE,CO2 24.4 mmol/L (21.0-32.0); CHLORIDE,CL 100 mmol/L (98-107); GLUCOSE RANDOM 252 mg/dL (74-106); POTASSIUM,K 3.6 mmol/L (3.5-5.1); SODIUM,NA 133 mmol/L (136-148)
[2021-09-29] MEDS: Insulin Aspart 100 Units/ML 3 ML Pen SUBCUT SCH ×3 (09:00→17:31)
[2021-09-29] MEDS: Cholecalciferol (Vitamin D3) 25 MCG Tab PO SCH (09:19)
[2021-09-29] MEDS: Lisinopril 10 MG Tab PO SCH (09:19)
[2021-09-29] MEDS: Diltiazem 120 MG Cap.CD PO SCH (09:19)
[2021-09-29] MEDS: Folic Acid 1 MG Tab PO SCH (09:19)
[2021-09-29] MEDS: Enoxaparin 100 MG/1 ML Syringe SUBCUT SCH ×2 (09:19→21:21)
[2021-09-29] MEDS: methylPREDNISolone Sodium Succinate 40 MG/1 ML SDV IVPUSH SCH (09:20)
[2021-09-29] MEDS: Azithromycin 500 MG in Sodium Chloride 0.9% 250 ML IV SCH (09:20)
[2021-09-29] MEDS: Docusate Sodium 100 MG Cap PO SCH ×2 (09:57→20:12)
[2021-09-29] MEDS ORDERED: Furosemide 40 MG/4 ML VIAL IVPUSH ONE (11:30)
[2021-09-29] MEDS: Nystatin Topical Powder 15 GM Bottle TOP PRN ×2 (12:15→21:51)
[2021-09-29] MEDS: Carboxymethylcellulose Sodium 0.5% Ophth Soln 0.4 ML UD Box of 30 EYEBOTH PRN (12:15)
[2021-09-29] MEDS ORDERED: Warfarin 5 MG Tab PO SCH (14:00)
[2021-09-29] MEDS: Warfarin Sliding Scale SCH (14:54)
[2021-09-29] MEDS: Rosuvastatin 10 MG Tab PO SCH (20:12)
[2021-09-29] MEDS: ALPRAZolam 0.25 MG Tab PO PRN (21:21)
[2021-09-30] MEDS: Albuterol/Ipratropium 3.0-0.5 MG/3 ML Neb Soln NEB PRN (00:23)
[2021-09-30] MEDS: VANCOmycin 1.5 GM/300 ML 1.5 GM in Premix Bag 1 BAG IV SCH (01:51)
[2021-09-30] MEDS: VANCOmycin 1.75 GM/350 ML 1.75 GM in Premix Bag 1 BAG IV SCH ×2 (02:03→13:35)
[2021-09-30] MEDS: Albuterol/Ipratropium 3.0-0.5 MG/3 ML Neb Soln NEB SCH ×6 (02:03→22:06)
[2021-09-30] MEDS: Cefepime 2 GM in Sodium Chloride 0.9% 50 ML IV SCH ×3 (03:46→20:30)
[2021-09-30] MEDS: Levothyroxine 100 MCG Tab PO SCH (06:37)
[2021-09-30] MEDS: Pantoprazole 40 MG Tab.CR PO SCH (06:37)
[2021-09-30 06:45] LABS: BLOOD UREA NITROGEN,BUN 17 mg/dL (7.0-18.0); CHLORIDE,CL 103 mmol/L (98-107); GLUCOSE RANDOM 141 mg/dL (74-106); POTASSIUM,K 3.7 mmol/L (3.5-5.1); SODIUM,NA 140 mmol/L (136-148)
[2021-09-30] MEDS ORDERED: Potassium Chloride 20 MEQ Tab.ER PO ONE (08:30)
[2021-09-30] MEDS ORDERED: Furosemide 40 MG/4 ML VIAL IVPUSH ONE (08:30)
[2021-09-30] MEDS: Insulin Aspart 100 Units/ML 3 ML Pen SUBCUT SCH ×3 (08:36→17:45)
[2021-09-30] MEDS: Sodium Chloride 0.65% Nasal Spray 45 ML Bottle NAS PRN ×2 (08:45→22:25)
[2021-09-30] MEDS: Docusate Sodium 100 MG Cap PO SCH ×2 (09:00→20:26)
[2021-09-30] MEDS: methylPREDNISolone Sodium Succinate 40 MG/1 ML SDV IVPUSH SCH (09:41)
[2021-09-30] MEDS: Azithromycin 500 MG in Sodium Chloride 0.9% 250 ML IV SCH (09:41)
[2021-09-30] MEDS: Enoxaparin 150 MG/1 ML Syringe SUBCUT SCH (09:42)
[2021-09-30] MEDS: Folic Acid 1 MG Tab PO SCH (09:42)
[2021-09-30] MEDS: Cholecalciferol (Vitamin D3) 25 MCG Tab PO SCH (09:42)
[2021-09-30] MEDS: Diltiazem 120 MG Cap.CD PO SCH (09:43)
[2021-09-30] MEDS: Lisinopril 10 MG Tab PO SCH (09:43)
[2021-09-30] MEDS: Nystatin Topical Powder 15 GM Bottle TOP PRN ×2 (12:41→22:25)
[2021-09-30] MEDS: Warfarin Sliding Scale SCH (13:37)
[2021-09-30] MEDS: Rosuvastatin 10 MG Tab PO SCH (20:30)
[2021-09-30] MEDS: ALPRAZolam 0.25 MG Tab PO PRN (21:28)
[2021-10-01] MEDS: VANCOmycin 1.75 GM/350 ML 1.75 GM in Premix Bag 1 BAG IV SCH (02:29)
[2021-10-01] MEDS: Albuterol/Ipratropium 3.0-0.5 MG/3 ML Neb Soln NEB SCH ×6 (02:29→22:09)
[2021-10-01] MEDS: Cefepime 2 GM in Sodium Chloride 0.9% 50 ML IV SCH ×3 (04:20→20:21)
[2021-10-01] MEDS: Levothyroxine 100 MCG Tab PO SCH (06:44)
[2021-10-01] MEDS: Pantoprazole 40 MG Tab.CR PO SCH (06:44)
[2021-10-01] MEDS: Carboxymethylcellulose Sodium 0.5% Ophth Soln 0.4 ML UD Box of 30 EYEBOTH PRN (06:44)
[2021-10-01 07:16] LABS: BLOOD UREA NITROGEN,BUN 19 mg/dL (7.0-18.0); CARBON DIOXIDE,CO2 24.2 mmol/L (21.0-32.0); CHLORIDE,CL 102 mmol/L (98-107); GLUCOSE RANDOM 127 mg/dL (74-106); POTASSIUM,K 4.2 mmol/L (3.5-5.1); SODIUM,NA 137 mmol/L (136-148)
[2021-10-01] MEDS: Azithromycin 500 MG in Sodium Chloride 0.9% 250 ML IV SCH (08:03)
[2021-10-01] MEDS: Enoxaparin 150 MG/1 ML Syringe SUBCUT SCH (08:03)
[2021-10-01] MEDS: Lisinopril 10 MG Tab PO SCH (08:04)
[2021-10-01] MEDS: Cholecalciferol (Vitamin D3) 25 MCG Tab PO SCH (08:04)
[2021-10-01] MEDS: Diltiazem 120 MG Cap.CD PO SCH (08:04)
[2021-10-01] MEDS: methylPREDNISolone Sodium Succinate 40 MG/1 ML SDV IVPUSH SCH (08:06)
[2021-10-01] MEDS: Folic Acid 1 MG Tab PO SCH (08:08)
[2021-10-01] MEDS: Docusate Sodium 100 MG Cap PO SCH ×2 (08:09→22:08)
[2021-10-01] MEDS: Insulin Aspart 100 Units/ML 3 ML Pen SUBCUT SCH ×3 (08:33→18:30)
[2021-10-01] MEDS ORDERED: Furosemide 20 MG/2 ML VIAL IVPUSH ONE (08:35)
[2021-10-01] MEDS: Warfarin Sliding Scale SCH (13:37)
[2021-10-01] MEDS: ALPRAZolam 0.25 MG Tab PO PRN (20:22)
[2021-10-01] MEDS: Rosuvastatin 10 MG Tab PO SCH (20:22)
[2021-10-02] MEDS: Albuterol/Ipratropium 3.0-0.5 MG/3 ML Neb Soln NEB SCH ×6 (01:45→21:13)
[2021-10-02] MEDS: Cefepime 2 GM in Sodium Chloride 0.9% 50 ML IV SCH ×2 (04:31→12:32)
[2021-10-02] MEDS: Azithromycin 500 MG in Sodium Chloride 0.9% 250 ML IV SCH (08:00)
[2021-10-02] MEDS: Enoxaparin 150 MG/1 ML Syringe SUBCUT SCH (08:00)
[2021-10-02] MEDS: Cholecalciferol (Vitamin D3) 25 MCG Tab PO SCH (08:00)
[2021-10-02] MEDS: methylPREDNISolone Sodium Succinate 40 MG/1 ML SDV IVPUSH SCH (08:00)
[2021-10-02] MEDS: Diltiazem 120 MG Cap.CD PO SCH (08:01)
[2021-10-02] MEDS: Folic Acid 1 MG Tab PO SCH (08:01)
[2021-10-02] MEDS: Levothyroxine 100 MCG Tab PO SCH (08:01)
[2021-10-02] MEDS: Pantoprazole 40 MG Tab.CR PO SCH (08:01)
[2021-10-02] MEDS: Lisinopril 10 MG Tab PO SCH (08:01)
[2021-10-02] MEDS: Insulin Aspart 100 Units/ML 3 ML Pen SUBCUT SCH ×3 (08:10→18:22)
[2021-10-02] MEDS: Docusate Sodium 100 MG Cap PO SCH ×2 (08:42→21:13)
[2021-10-02 09:14] LABS: BLOOD UREA NITROGEN,BUN 16 mg/dL (7.0-18.0); CARBON DIOXIDE,CO2 26.1 mmol/L (21.0-32.0); CHLORIDE,CL 101 mmol/L (98-107); GLUCOSE RANDOM 124 mg/dL (74-106); POTASSIUM,K 4.1 mmol/L (3.5-5.1); SODIUM,NA 138 mmol/L (136-148)
[2021-10-02] MEDS ORDERED: Warfarin 5 MG Tab PO SCH (14:00)
[2021-10-02] MEDS: Warfarin Sliding Scale SCH (14:26)
[2021-10-02] MEDS: Rosuvastatin 10 MG Tab PO SCH (21:13)
[2021-10-03] MEDS: Albuterol/Ipratropium 3.0-0.5 MG/3 ML Neb Soln NEB SCH ×6 (02:27→21:16)
[2021-10-03 06:36] LABS: BLOOD UREA NITROGEN,BUN 17 mg/dL (7.0-18.0); CARBON DIOXIDE,CO2 27.5 mmol/L (21.0-32.0); CHLORIDE,CL 102 mmol/L (98-107); GLUCOSE RANDOM 114 mg/dL (74-106); POTASSIUM,K 3.7 mmol/L (3.5-5.1); SODIUM,NA 139 mmol/L (136-148)
[2021-10-03] MEDS: Levothyroxine 100 MCG Tab PO SCH (06:36)
[2021-10-03] MEDS: Pantoprazole 40 MG Tab.CR PO SCH (06:36)
[2021-10-03] MEDS: Insulin Aspart 100 Units/ML 3 ML Pen SUBCUT SCH ×3 (06:36→17:16)
[2021-10-03] MEDS: methylPREDNISolone Sodium Succinate 40 MG/1 ML SDV IVPUSH SCH (09:00)
[2021-10-03] MEDS: Enoxaparin 150 MG/1 ML Syringe SUBCUT SCH (09:00)
[2021-10-03] MEDS: Diltiazem 120 MG Cap.CD PO SCH (09:01)
[2021-10-03] MEDS: Folic Acid 1 MG Tab PO SCH (09:01)
[2021-10-03] MEDS: Docusate Sodium 100 MG Cap PO SCH ×2 (09:01→21:16)
[2021-10-03] MEDS: Cholecalciferol (Vitamin D3) 25 MCG Tab PO SCH (09:01)
[2021-10-03] MEDS: Lisinopril 10 MG Tab PO SCH (09:02)
[2021-10-03] MEDS ORDERED: Warfarin 5 MG Tab PO SCH (14:00)
[2021-10-03] MEDS: Warfarin Sliding Scale SCH (14:53)
[2021-10-03] MEDS: Rosuvastatin 10 MG Tab PO SCH (21:16)
[2021-10-04] MEDS: Albuterol/Ipratropium 3.0-0.5 MG/3 ML Neb Soln NEB SCH ×6 (01:38→21:11)
[2021-10-04] MEDS: Insulin Aspart 100 Units/ML 3 ML Pen SUBCUT SCH ×3 (06:31→17:49)
[2021-10-04] MEDS: Pantoprazole 40 MG Tab.CR PO SCH (06:32)
[2021-10-04] MEDS: Levothyroxine 100 MCG Tab PO SCH (06:32)
[2021-10-04 06:51] LABS: BLOOD UREA NITROGEN,BUN 17 mg/dL (7.0-18.0); CARBON DIOXIDE,CO2 27.2 mmol/L (21.0-32.0); CHLORIDE,CL 100 mmol/L (98-107); GLUCOSE RANDOM 140 mg/dL (74-106); POTASSIUM,K 4.1 mmol/L (3.5-5.1); SODIUM,NA 137 mmol/L (136-148)
[2021-10-04] MEDS: Cholecalciferol (Vitamin D3) 25 MCG Tab PO SCH (09:04)
[2021-10-04] MEDS: Diltiazem 120 MG Cap.CD PO SCH (09:05)
[2021-10-04] MEDS: Lisinopril 10 MG Tab PO SCH (09:05)
[2021-10-04] MEDS: Docusate Sodium 100 MG Cap PO SCH ×2 (09:05→21:10)
[2021-10-04] MEDS: Folic Acid 1 MG Tab PO SCH (09:05)
[2021-10-04] MEDS: methylPREDNISolone Sodium Succinate 40 MG/1 ML SDV IVPUSH SCH (09:06)
[2021-10-04] MEDS ORDERED: Simethicone 80 MG Tab.Chew PO PRN (13:48)
[2021-10-04] MEDS ORDERED: Warfarin 5 MG Tab PO SCH (14:00)
[2021-10-04] MEDS: Warfarin Sliding Scale SCH (15:39)
[2021-10-04] MEDS: Rosuvastatin 10 MG Tab PO SCH (21:10)
[2021-10-05] MEDS: Albuterol/Ipratropium 3.0-0.5 MG/3 ML Neb Soln NEB SCH ×5 (02:19→23:38)
[2021-10-05] MEDS: Pantoprazole 40 MG Tab.CR PO SCH (06:37)
[2021-10-05] MEDS: Levothyroxine 100 MCG Tab PO SCH (06:37)
[2021-10-05] MEDS: Insulin Aspart 100 Units/ML 3 ML Pen SUBCUT SCH ×3 (06:38→17:25)
[2021-10-05 06:40] LABS: BLOOD UREA NITROGEN,BUN 22 mg/dL (7.0-18.0); CARBON DIOXIDE,CO2 24.7 mmol/L (21.0-32.0); CHLORIDE,CL 101 mmol/L (98-107); GLUCOSE RANDOM 133 mg/dL (74-106); SODIUM,NA 137 mmol/L (136-148)
[2021-10-05] MEDS: Cholecalciferol (Vitamin D3) 25 MCG Tab PO SCH (09:28)
[2021-10-05] MEDS: Docusate Sodium 100 MG Cap PO SCH ×2 (09:28→20:56)
[2021-10-05] MEDS: Diltiazem 120 MG Cap.CD PO SCH (09:28)
[2021-10-05] MEDS: Lisinopril 10 MG Tab PO SCH (09:29)
[2021-10-05] MEDS: methylPREDNISolone Sodium Succinate 40 MG/1 ML SDV IVPUSH SCH (09:29)
[2021-10-05] MEDS: Folic Acid 1 MG Tab PO SCH (09:29)
[2021-10-05] MEDS ORDERED: Warfarin 2.5 MG Tab PO SCH (14:00)
[2021-10-05] MEDS: Warfarin Sliding Scale SCH (14:04)
[2021-10-05] MEDS: Rosuvastatin 10 MG Tab PO SCH (20:55)
[2021-10-06] MEDS: Albuterol/Ipratropium 3.0-0.5 MG/3 ML Neb Soln NEB SCH ×2 (06:36→11:58)
[2021-10-06] MEDS: Pantoprazole 40 MG Tab.CR PO SCH (06:37)
[2021-10-06] MEDS: Insulin Aspart 100 Units/ML 3 ML Pen SUBCUT SCH ×3 (06:37→17:22)
[2021-10-06] MEDS: Levothyroxine 100 MCG Tab PO SCH (06:37)
[2021-10-06] MEDS: methylPREDNISolone Sodium Succinate 40 MG/1 ML SDV IVPUSH SCH (08:35)
[2021-10-06] MEDS: Docusate Sodium 100 MG Cap PO SCH ×2 (09:40→21:06)
[2021-10-06] MEDS: Cholecalciferol (Vitamin D3) 25 MCG Tab PO SCH (09:40)
[2021-10-06] MEDS: Lisinopril 10 MG Tab PO SCH (09:41)
[2021-10-06] MEDS: Folic Acid 1 MG Tab PO SCH (09:44)
[2021-10-06] MEDS: Diltiazem 120 MG Cap.CD PO SCH (09:45)
[2021-10-06] MEDS ORDERED: Warfarin 2.5 MG Tab PO SCH (14:00)
[2021-10-06] MEDS: Warfarin Sliding Scale SCH (14:25)
[2021-10-06] MEDS: Carboxymethylcellulose Sodium 0.5% Ophth Soln 0.4 ML UD Box of 30 EYEBOTH PRN (16:43)
[2021-10-06] MEDS: Rosuvastatin 10 MG Tab PO SCH (21:06)
[2021-10-07] MEDS: Albuterol/Ipratropium 3.0-0.5 MG/3 ML Neb Soln NEB SCH ×5 (00:09→17:33)
[2021-10-07] MEDS: Pantoprazole 40 MG Tab.CR PO SCH (06:30)
[2021-10-07] MEDS: Levothyroxine 100 MCG Tab PO SCH (06:30)
[2021-10-07] MEDS: Insulin Aspart 100 Units/ML 3 ML Pen SUBCUT SCH ×3 (08:04→17:32)
[2021-10-07] MEDS: Folic Acid 1 MG Tab PO SCH (08:07)
[2021-10-07] MEDS: Cholecalciferol (Vitamin D3) 25 MCG Tab PO SCH (08:08)
[2021-10-07] MEDS: Diltiazem 120 MG Cap.CD PO SCH (08:08)
[2021-10-07] MEDS: Docusate Sodium 100 MG Cap PO SCH ×2 (08:09→21:58)
[2021-10-07] MEDS: methylPREDNISolone Sodium Succinate 40 MG/1 ML SDV IVPUSH SCH (08:09)
[2021-10-07] MEDS: Lisinopril 10 MG Tab PO SCH (08:09)
[2021-10-07] MEDS ORDERED: Warfarin 5 MG Tab PO SCH (14:00)
[2021-10-07] MEDS: Warfarin Sliding Scale SCH (14:03)
[2021-10-07] MEDS: Rosuvastatin 10 MG Tab PO SCH (21:58)
[2021-10-08] MEDS: Albuterol/Ipratropium 3.0-0.5 MG/3 ML Neb Soln NEB SCH ×2 (00:30→06:25)
[2021-10-08] MEDS: Levothyroxine 100 MCG Tab PO SCH ×2 (06:24→07:51)
[2021-10-08] MEDS: Pantoprazole 40 MG Tab.CR PO SCH ×2 (06:24→07:51)
[2021-10-08] MEDS: Insulin Aspart 100 Units/ML 3 ML Pen SUBCUT SCH ×3 (07:04→18:35)
[2021-10-08] MEDS: Docusate Sodium 100 MG Cap PO SCH ×2 (09:01→20:26)
[2021-10-08] MEDS: Diltiazem 120 MG Cap.CD PO SCH (09:01)
[2021-10-08] MEDS: Cholecalciferol (Vitamin D3) 25 MCG Tab PO SCH (09:01)
[2021-10-08] MEDS: Folic Acid 1 MG Tab PO SCH (09:01)
[2021-10-08] MEDS: Lisinopril 10 MG Tab PO SCH (09:02)
[2021-10-08] MEDS: methylPREDNISolone Sodium Succinate 40 MG/1 ML SDV IVPUSH SCH (09:07)
[2021-10-08] MEDS ORDERED: Albuterol/Ipratropium 3.0-0.5 MG/3 ML Neb Soln NEB PRN (10:41)
[2021-10-08] MEDS: Warfarin Sliding Scale SCH (13:37)
[2021-10-08] MEDS ORDERED: Warfarin 5 MG, Warfarin 2.5 MG PO SCH ×2 (14:00)
[2021-10-08] MEDS: Rosuvastatin 10 MG Tab PO SCH (20:26)
[2021-10-09] MEDS: Levothyroxine 100 MCG Tab PO SCH (06:36)
[2021-10-09] MEDS: Pantoprazole 40 MG Tab.CR PO SCH (06:36)
[2021-10-09] MEDS: Insulin Aspart 100 Units/ML 3 ML Pen SUBCUT SCH ×3 (07:50→20:00)
[2021-10-09] MEDS: Diltiazem 120 MG Cap.CD PO SCH (08:04)
[2021-10-09] MEDS: Cholecalciferol (Vitamin D3) 25 MCG Tab PO SCH (08:05)
[2021-10-09] MEDS: Folic Acid 1 MG Tab PO SCH (08:05)
[2021-10-09] MEDS: Lisinopril 10 MG Tab PO SCH (08:05)
[2021-10-09] MEDS: Docusate Sodium 100 MG Cap PO SCH ×2 (08:05→20:55)
[2021-10-09] MEDS ORDERED: Warfarin 5 MG, Warfarin 2.5 MG PO SCH ×2 (14:00)
[2021-10-09] MEDS: Warfarin Sliding Scale SCH (14:50)
[2021-10-09] MEDS ORDERED: Sodium Chloride 0.9% 1,000 ML IV ONE (16:21)
[2021-10-09] MEDS ORDERED: predniSONE 10 MG Tab PO ONE (16:23)
[2021-10-09] MEDS: Rosuvastatin 10 MG Tab PO SCH (20:55)
[2021-10-10 06:15] LABS: BLOOD UREA NITROGEN,BUN 16 mg/dL (7.0-18.0); CARBON DIOXIDE,CO2 24.5 mmol/L (21.0-32.0); CHLORIDE,CL 101 mmol/L (98-107); GLUCOSE RANDOM 113 mg/dL (74-106); SODIUM,NA 135 mmol/L (136-148)
[2021-10-10] MEDS: Pantoprazole 40 MG Tab.CR PO SCH (06:43)
[2021-10-10] MEDS: Levothyroxine 100 MCG Tab PO SCH (06:43)
[2021-10-10] MEDS: Insulin Aspart 100 Units/ML 3 ML Pen SUBCUT SCH ×3 (07:48→18:30)
[2021-10-10] MEDS: predniSONE 10 MG Tab PO SCH (09:26)
[2021-10-10] MEDS: Folic Acid 1 MG Tab PO SCH (09:27)
[2021-10-10] MEDS: Docusate Sodium 100 MG Cap PO SCH ×2 (09:27→20:23)
[2021-10-10] MEDS: Diltiazem 120 MG Cap.CD PO SCH (09:28)
[2021-10-10] MEDS: Cholecalciferol (Vitamin D3) 25 MCG Tab PO SCH (09:30)
[2021-10-10] MEDS ORDERED: Warfarin 5 MG Tab PO SCH (14:00)
[2021-10-10] MEDS: Warfarin Sliding Scale SCH (14:20)
[2021-10-10] MEDS: Rosuvastatin 10 MG Tab PO SCH (20:23)
[2021-10-11] MEDS: Pantoprazole 40 MG Tab.CR PO SCH ×2 (06:28→07:14)
[2021-10-11] MEDS: Levothyroxine 100 MCG Tab PO SCH ×2 (06:28→07:15)
[2021-10-11] MEDS: Insulin Aspart 100 Units/ML 3 ML Pen SUBCUT SCH ×2 (07:24→11:52)
[2021-10-11] MEDS: Docusate Sodium 100 MG Cap PO SCH (08:16)
[2021-10-11] MEDS: predniSONE 10 MG Tab PO SCH (08:16)
[2021-10-11] MEDS: Folic Acid 1 MG Tab PO SCH (08:17)
[2021-10-11] MEDS: Diltiazem 120 MG Cap.CD PO SCH (08:18)
[2021-10-11] MEDS: Cholecalciferol (Vitamin D3) 25 MCG Tab PO SCH (08:22)
[2021-10-11] MEDS ORDERED: Warfarin 2.5 MG Tab PO SCH (14:00)
== END 2021-10-11 13:55 | disposition home health service (06) | DRG 177 ==
LOC: MW.ED 07:57 → MW.MS 12:21 → MW.ED 13:07 → MW.ICU 15:59 → MW.MS 09-26 16:53 → MW.ICU 09-28 17:05 → MW.OB 09-28 18:38 → MW.MS 10-02 11:42
PROVIDERS: ADMIT Student in an Organized Health Care Education/Training Program; ATTEND Student in an Organized Health Care Education/Training Program
PROC: XW033E5 Introduction of Remdesivir Anti-infective into Peripheral Vein, Percutaneous Approach, New Technology Group 5 (ICD-10-PCS; principal; 2021-09-13)
PROC: 3E0DX3Z Introduction of Anti-inflammatory into Mouth and Pharynx, External Approach (ICD-10-PCS; 2021-09-13)
PROC: XW0DXM6 Introduction of Baricitinib into Mouth and Pharynx, External Approach, New Technology Group 6 (ICD-10-PCS; 2021-09-13)
PROC: 5A09557 Assistance with Respiratory Ventilation, Greater than 96 Consecutive Hours, Continuous Positive Airway Pressure (ICD-10-PCS; 2021-09-13)
PROC: 5A0955A Assistance with Respiratory Ventilation, Greater than 96 Consecutive Hours, High Flow/Velocity Cannula (ICD-10-PCS; 2021-09-13)
DX: U07.1 COVID-19 (principal); J12.82 Pneumonia due to coronavirus disease 2019; J96.01 Acute respiratory failure with hypoxia; H54.7 Unspecified visual loss; I26.99 Other pulmonary embolism without acute cor pulmonale; E78.00 Pure hypercholesterolemia, unspecified; J90 Pleural effusion, not elsewhere classified; K92.2 Gastrointestinal hemorrhage, unspecified; E11.9 Type 2 diabetes mellitus without complications; I10 Essential (primary) hypertension; Z92.3 Personal history of irradiation; Z79.84 Long term (current) use of oral hypoglycemic drugs; Z79.82 Long term (current) use of aspirin; E03.9 Hypothyroidism, unspecified; M06.9 Rheumatoid arthritis, unspecified; E78.5 Hyperlipidemia, unspecified; R59.1 Generalized enlarged lymph nodes; I95.9 Hypotension, unspecified; J43.9 Emphysema, unspecified; Z96.652 Presence of left artificial knee joint; I48.0 Paroxysmal atrial fibrillation; Z79.899 Other long term (current) drug therapy; Z79.01 Long term (current) use of anticoagulants; Z79.52 Long term (current) use of systemic steroids; Z79.890 Hormone replacement therapy; Z85.46 Personal history of malignant neoplasm of prostate
CPT/HCPCS: 36415; 36600; 71045; 71275; 80053; 82248; 82803; 83605; 84484; 85025; 86140; 87040 ×2; 93005; 96365; 99285; J0696; J7030; U0002; 51702; 80048; 80202; 82272; 82306; 82947; 83735; 83880; 84100; 84145; 84439; 84443; 85014; 85018; 85610; 93010; 93306; 94640; 94660; 94667; 97110-GP; 97112-GP; 97116-GP; 97161-GP; 97163-GP; 97164-GP; 97530-GP; A9270-GY; C9113; J0456; J0692; J1644; J1650; J1815-GY; J1885; J1940; J1956; J2920; J3370; J7050; J7620-GY; J8540; Q9967

== ENCOUNTER 2024-06-04 09:37 | Day surgery (SDC) | payer MEDICARE ==
[~2024-06-04 09:37] MED LIST changes: -Famotidine 20 MG/2 ML SDV IVPUSH SCH; -Midazolam 1 MG/ML 2 ML SDV ONE; -Ondansetron 4 MG/2 ML SDV ONE; -Propofol 200 MG/20 ML SDV ONE; -Scopolamine 1.5 MG Transdermal Patch TRDERM SCH; +Sodium Chloride 0.9% 10 ML Syringe FLUSH PRN; +Sodium Chloride 0.9% 2.5 ML Syringe FLUSH PRN; +Sodium Chloride 0.9% 20 ML SDV IV PRN; -Tranexamic Acid 1,000 MG in Sodium Chloride 0.9% 100 ML IV ONE; -ceFAZolin 2 GM in Premix Bag 1 BAG IV SCH; -fentaNYL 100 MCG/2 ML SDV ONE
[2024-06-04] MEDS: Lactated Ringers 1,000 ML IV SCH (10:02)
[2024-06-04] MEDS ORDERED: propofoL 50 ML ONE (11:29)
[2024-06-04] MEDS ORDERED: Ketamine HCL/NACL, ISO-OSM 50 MG/5 ML Syringe ONE (11:29)
[2024-06-04] MEDS ORDERED: fentaNYL 100 MCG/2 ML SDV ONE (11:30)
[2024-06-04] MEDS ORDERED: Esmolol 100 MG/10 ML SDV ONE (11:46)
[2024-06-04] MEDS ORDERED: Magnesium Sulfate (4.06 MEQ/ML) 5 GM/10 ML SDV ONE (12:05)
[2024-06-04] MEDS ORDERED: Propofol 200 MG/20 ML SDV ONE ×4 (12:09→12:51)
[2024-06-04] MEDS ORDERED: Phenylephrine HCl In 0.9% NaCl 1 MG/10 ML Syringe ONE (12:21)
== END 2024-06-04 13:52 | disposition home or self-care (01) ==
LOC: MW.SDS 09:37
PROVIDERS: ATTEND Surgery
DX: Z12.11 Encounter for screening for malignant neoplasm of colon (principal); D12.2 Benign neoplasm of ascending colon; D12.3 Benign neoplasm of transverse colon; D12.5 Benign neoplasm of sigmoid colon; K57.30 Diverticulosis of large intestine without perforation or abscess without bleeding; Z86.0100 Personal history of colon polyps, unspecified; I10 Essential (primary) hypertension; E11.9 Type 2 diabetes mellitus without complications; E03.9 Hypothyroidism, unspecified; E78.00 Pure hypercholesterolemia, unspecified; Z87.891 Personal history of nicotine dependence; Z79.82 Long term (current) use of aspirin; Z79.890 Hormone replacement therapy; Z79.899 Other long term (current) drug therapy
CPT/HCPCS: 45380; 45381; 45385; 88305; J2371; J2704; J3010; J3475; J3490; J7120; 00811; 99100